=== PATIENT | female | born 1960 | race Caucasian/White ===

== ENCOUNTER 2016-09-22 09:22 | Emergency (ER) | payer MEDICARE, OTHER ==
[2016-09-22] MEDS ORDERED: KETOROLAC 60 MG/2 ML VIAL IVP STA (10:10)
--- NOTE | 2016-09-22 10:13 | ED ---
General Adult HPI - General Chief complaint: Chest Pain Stated complaint: chest pain/lower back pain/left knee pain Time Seen by Provider: 09/22/16 09:25 Source: patient, RN notes reviewed Mode of arrival: ambulatory Limitations: no limitations - History of Present Illness Initial comments: This a 55-year-old female comes emergency Department with past medical history significant for smoking. Patient states she's had chest pain in the anterior aspect of her chest for the last week per patient states his been constant and is worsened by touching it or by taking a deep breath or moving her arms. Patient denies any difficulty breathing or shortness of breath. Patient denies any diaphoresis. Patient denies any nausea. Patient denies any leg swelling or calf tenderness. Patient denies being lightheaded or having any dizzy spells. Patient denies any headache patient denies numbness weakness. Patient denies abdominal pain. Patient denies any injury that she knows of. Patient states lately been difficult to sleep because any time she moves in bed the pain wakes her up - Related Data Home Medications Medication Instructions Recorded Confirmed Escitalopram [Lexapro] 20 mg PO DAILY 08/18/13 09/22/16 Gabapentin [Neurontin] 800 mg PO TID 08/18/13 09/22/16 HYDROcodone/APAP 10-325MG [[place] 1 tab PO Q8H PRN 08/18/13 09/22/16 10-325] Potassium Chloride [Potassium 20 meq PO BID 08/18/13 09/22/16 Chloride ER] Pantoprazole Sodium [Protonix] 40 mg PO BID 12/31/13 09/22/16 Simvastatin [Zocor] 20 mg PO DAILY 12/31/13 09/22/16 Linaclotide [Linzess] 290 mcg PO QAM 05/21/15 09/22/16 Docusate Sodium [Doc-Q-Lace] 100 mg PO BID 11/04/15 09/22/16 Morphine Sulfate ER [Ms Contin 60 mg PO Q12HR 11/04/15 09/22/16 60Mg] Ranitidine HCl [Zantac] 300 mg PO TID 11/04/15 09/22/16 Baclofen [Lioresal] 10 mg PO HS 09/13/16 09/22/16 Ibuprofen [Motrin] 800 mg PO TID PRN 09/13/16 09/22/16 Lidocaine 5% Oint [Xylocaine 5% 1 applic TOPICAL Q4H PRN 09/13/16 09/22/16 Oint] Polyethylene Glycol 3350 [Miralax] 17 gm PO DAILY 09/13/16 09/22/16 predniSONE 20 mg PO DAILY 09/13/16 09/22/16 traZODone HCL 150 mg PO HS 09/22/16 09/22/16 Previous Rx's Medication Instructions Recorded Dicyclomine [Bentyl] 10 mg PO QID PRN #16 capsule 05/09/15 Metoclopramide HCl [Reglan] 10 mg PO TID PRN #15 tablet 06/13/15 Azithromycin [Zithromax Tri-Moncho] 500 mg PO DAILY #3 tab 09/22/16 Allergies Allergy/AdvReac Type Severity Reaction Status Date / Time celecoxib [From Celebrex] Allergy Swelling Verified 09/22/16 13:09 Iodinated Contrast Media - Allergy Dyspnea Verified 09/22/16 13:09 Oral and [Iodinated Contrast Media - IV Dye] Penicillins Allergy Rash/Hives Verified 09/22/16 13:09 rofecoxib [From Vioxx] Allergy Swelling Verified 09/22/16 13:09 sumatriptan [From Imitrex] AdvReac Chest Pain Verified 09/22/16 13:09 sumatriptan succinate AdvReac Chest Pain Verified 09/22/16 13:09 [From Imitrex] tramadol HCl [From Ultram] AdvReac Nausea & Verified 09/22/16 13:09 Vomiting PAPER TAPE Allergy Itching Uncoded 09/22/16 09:23 Review of Systems ROS Statement: Those systems with pertinent positive or pertinent negative responses have been documented in the HPI. ROS Other: All systems not noted in ROS Statement are negative. Past Medical History Past Medical History: COPD, CVA/TIA, GERD/Reflux, Hyperlipidemia, Hypertension, Osteoarthritis (OA), Pneumonia, Pulmonary Embolus (PE), Seizure Disorder, Sleep Apnea/CPAP/BIPAP Additional Past Medical History / Comment(s): Chronic pain syndrome, opiate dependence. ONLY USES CPAP SOMETIMES, hiatal hernia, migraines,bronchitis,sinus problems, endometreosis,stress incont of urine,constipation. LAST SEIZURE WAS A CHILD. PT HAS BEEN HAVING FREQ FALLS. LAST FALL WAS 08/24/16 HAS TO HAVE 12 CHRISTIAN IN LLE WHICH REMOVED 09/10/16. History of Any Multi-Drug Resistant Organisms: MRSA Date of last positivie culture/infection: 2010 MDRO Source:: LEFT LEG Past Surgical History: Adenoidectomy, Back Surgery, Cholecystectomy, Orthopedic Surgery, Tonsillectomy Additional Past Surgical History / Comment(s): Lung surgery-to removed blood clot. BILAT KNEE scopes BILAT TKA AND [place]RIA. RT LEG TUMOR REMOVALed(benign). Back has rika/screws. Lt shoulder replaced. Rt shoulder has pin. PAIN CLINIC PROCEDURES. LAPROSCOPY,GANGLION CYST REMOVED HERMINIA WRISTS. LT CTR, BUNIONECTOMY. EGD/COLONOSCOPY. CORTISONE SHOT 09/11/16 Past Anesthesia/Blood Transfusion Reactions: Motion Sickness, Postoperative Nausea & Vomiting (PONV) Additional Past Anesthesia/Blood Transfusion Reaction / Comment(s): CLAUSTROPHOBIA Past Psychological History: Anxiety, Depression Smoking Status: Current every day smoker - Past Family History Father Family Medical History: Cancer Additional Family Medical History / Comment(s): bowel cancer Mother Additional Family Medical History / Comment(s): crohns Sister(s) Family Medical History: Cancer General Exam - General Exam Comments Initial Comments: GENERAL: Patient is well-developed and well-nourished. Patient is nontoxic and well- hydrated and is in mild distress. ENT: Neck is soft and supple. No significant lymphadenopathy is noted. Oropharynx is clear. Moist mucous membranes. Neck has full range of motion without eliciting any pain. EYES: The sclera were anicteric and conjunctiva were pink and moist. Extraocular movements were intact and pupils were equal round and reactive to light. Eyelids were unremarkable. PULMONARY: Unlabored respirations. Good breath sounds bilaterally. No audible rales rhonchi or wheezing was noted. CARDIOVASCULAR: There is a regular rate and rhythm without any murmurs gallops or rubs. Patient has reproducible chest pain when I touch her sternum or just lateral to the sternum on either side. ABDOMEN: Soft and nontender with normal bowel sounds. No palpable organomegaly was noted. There is no palpable pulsatile mass. SKIN: Skin is clear with no lesions or rashes and otherwise unremarkable. NEUROLOGIC: Patient is alert and oriented x3. Cranial nerves II through XII are grossly intact. Motor and sensory are also intact. Normal speech, volume and content. Symmetrical smile. MUSCULOSKELETAL: Normal extremities with adequate strength and full range of motion. No lower extremity swelling or edema. No calf tenderness. LYMPHATICS: No significant lymphadenopathy is noted PSYCHIATRIC: Normal psychiatric evaluation. Normal interpersonal interactions appears functionally intact in deals appropriately with others. No signs of depression. No signs of anxiety. Limitations: no limitations Course Vital Signs 09/22/16 09/22/16 09/22/16 09:24 11:23 12:02 Temperature 97.4 F L Pulse Rate 81 77 67 Respiratory 20 16 18 Rate Blood Pressure 116/65 120/83 119/71 O2 Sat by Pulse 96 98 95 Oximetry 09/22/16 13:31 Temperature Pulse Rate 73 Respiratory 16 Rate Blood Pressure 122/77 O2 Sat by Pulse 98 Oximetry Medical Decision Making - Medical Decision Making EKG shows normal sinus rhythm at 85 bpm ID interval is 152 QRS is 82 QT interval 360 QTC is 428. Patient's EKG shows no ST segment elevation or depression or T-wave abdomen is noted. Patient received Rocephin while in the emergency department. I went back into reevaluate the patient she stated she felt better and stated she would prefer to try antibiotics home. - Lab Data Result diagrams: 09/22/16 09:45 09/22/16 09:45 Lab Results 09/22/16 09/22/16 09/22/16 Range/Units 09:45 09:45 09:45 WBC 15.6 H (3.8-10.6) k/uL RBC 3.57 L (3.80-5.40) m/uL Hgb 11.6 (11.4-16.0) gm/dL Hct 34.3 (34.0-46.0) % MCV 96.3 (80.0-100.0) fL MCH 32.5 (25.0-35.0) pg MCHC 33.7 (31.0-37.0) g/dL RDW 13.0 (11.5-15.5) % Plt Count 267 (150-450) k/uL Neutrophils % 77 % Lymphocytes % 16 % Monocytes % 5 % Eosinophils % 1 % Basophils % 0 % Neutrophils # 12.0 H (1.3-7.7) k/uL Lymphocytes # 2.5 (1.0-4.8) k/uL Monocytes # 0.7 (0-1.0) k/uL Eosinophils # 0.1 (0-0.7) k/uL Basophils # 0.1 (0-0.2) k/uL PT (9.0-12.0) sec INR (<1.1) APTT (22.0-30.0) sec D-Dimer (<0.60) mg/L FEU Sodium 138 (137-145) mmol/L Potassium 3.8 (3.5-5.1) mmol/L Chloride 101 (98-107) mmol/L Carbon Dioxide 31 H (22-30) mmol/L Anion Gap 6 mmol/L BUN 18 H (7-17) mg/dL Creatinine 0.47 L (0.52-1.04) mg/dL Est GFR (MDRD) Af Amer >60 (>60 ml/min/1.73 sqM) Est GFR (MDRD) Non-Af >60 (>60 ml/min/1.73 sqM) Glucose 88 (74-99) mg/dL Calcium 9.0 (8.4-10.2) mg/dL Magnesium 2.0 (1.6-2.3) mg/dL Total Bilirubin 0.4 (0.2-1.3) mg/dL AST 11 L (14-36) U/L ALT 16 (9-52) U/L Alkaline Phosphatase 84 (38-126) U/L Total Creatine Kinase 30 (30-135) U/L CK-MB (CK-2) 1.1 (0.0-2.4) ng/mL CK-MB (CK-2) Rel Index 3.7 Troponin I <0.012 (0.000-0.034) ng/mL NT-Pro-B Natriuret Pep pg/mL Total Protein 5.7 L (6.3-8.2) g/dL Albumin 3.3 L (3.5-5.0) g/dL 09/22/16 09/22/16 Range/Units 09:45 09:45 WBC (3.8-10.6) k/uL RBC (3.80-5.40) m/uL Hgb (11.4-16.0) gm/dL Hct (34.0-46.0) % MCV (80.0-100.0) fL MCH (25.0-35.0) pg MCHC (31.0-37.0) g/dL RDW (11.5-15.5) % Plt Count (150-450) k/uL Neutrophils % % Lymphocytes % % Monocytes % % Eosinophils % % Basophils % % Neutrophils # (1.3-7.7) k/uL Lymphocytes # (1.0-4.8) k/uL Monocytes # (0-1.0) k/uL Eosinophils # (0-0.7) k/uL Basophils # (0-0.2) k/uL PT 9.5 (9.0-12.0) sec INR 0.9 (<1.1) APTT 26.5 (22.0-30.0) sec D-Dimer 0.94 H (<0.60) mg/L FEU Sodium (137-145) mmol/L Potassium (3.5-5.1) mmol/L Chloride (98-107) mmol/L Carbon Dioxide (22-30) mmol/L Anion Gap mmol/L BUN (7-17) mg/dL Creatinine (0.52-1.04) mg/dL Est GFR (MDRD) Af Amer (>60 ml/min/1.73 sqM) Est GFR (MDRD) Non-Af (>60 ml/min/1.73 sqM) Glucose (74-99) mg/dL Calcium (8.4-10.2) mg/dL Magnesium (1.6-2.3) mg/dL Total Bilirubin (0.2-1.3) mg/dL AST (14-36) U/L ALT (9-52) U/L Alkaline Phosphatase (38-126) U/L Total Creatine Kinase (30-135) U/L CK-MB (CK-2) (0.0-2.4) ng/mL CK-MB (CK-2) Rel Index Troponin I (0.000-0.034) ng/mL NT-Pro-B Natriuret Pep 138 pg/mL Total Protein (6.3-8.2) g/dL Albumin (3.5-5.0) g/dL Disposition Clinical Impression: Pneumonia, Pleurisy Disposition: HOME SELF-CARE Condition: Good Instructions: Pneumonia (ED) Prescriptions: Azithromycin [Zithromax Tri-Moncho] 500 mg PO DAILY #3 tab Referrals: Alon Esteves MD [Primary Care Provider] - 1-2 days Time of Disposition: 13:43
[2016-09-22 10:24] LABS: Basophils # (A) 0.1 k/uL (0-0.2); Basophils % (A) 0 %; CH 32.6; Eosinophils # (A) 0.1 k/uL (0-0.7); Eosinophils % (A) 1 %; HCT 34.3 % (34.0-46.0); HDW 2.19; HGB 11.6 gm/dL (11.4-16.0); Luc # (Auto) 0.18; Luc % (Auto) 1; Lymphocytes # (A) 2.5 k/uL (1.0-4.8); Lymphocytes % (A) 16 %; MCH 32.5 pg (25.0-35.0); MCHC 33.7 g/dL (31.0-37.0); MCV 96.3 fL (80.0-100.0); Mean Platelet Volume 6.8; Monocytes # (A) 0.7 k/uL (0-1.0); Monocytes % (A) 5 %; Neutrophils % (A) 77 %; RBC 3.57 m/uL (3.80-5.40); WBC 15.6 k/uL (3.8-10.6); WBC (Perox) 15.81
--- NOTE | 2016-09-22 10:27 | XR ---
EXAMINATION TYPE: XR chest 2V DATE OF EXAM: 09/22/2016 COMPARISON: 09/30/2015 INDICATION: Chest pain TECHNIQUE: Frontal and lateral views of the chest are obtained. FINDINGS: The heart size is normal. The pulmonary vasculature is normal. The lungs are clear. Left shoulder prosthesis is present. There is a compression deformity within the mid thoracic spine. Findings aggressive from 09/30/2015. No posterior wall displacement is evident. IMPRESSION: 1. No suspicious acute infiltrates. 2. Progressive compression deformity midthoracic spine 2016
[2016-09-22 10:33] LABS: ALT 16 U/L (9-52); AST 11 U/L (14-36); Alkaline Phosphatase 84 U/L (38-126); Anion Gap 6 mmol/L; Blood Urea Nitrogen 18 mg/dL (7-17); Carbon Dioxide 31 mmol/L (22-30); Chloride 101 mmol/L (98-107); Glucose 88 mg/dL (74-99); Non-African American GFR(MDRD) >60 (>60 ml/min/1.73 sqM); Potassium 3.8 mmol/L (3.5-5.1); Sodium 138 mmol/L (137-145); Total Bilirubin 0.4 mg/dL (0.2-1.3); Total Protein 5.7 g/dL (6.3-8.2)
[2016-09-22 10:40] LABS: INR 0.9 (<1.1); Partial Thromboplastin Time 26.5 sec (22.0-30.0); Prothrombin Time 9.5 sec (9.0-12.0)
[2016-09-22 10:47] LABS: Creatine Kinase 30 U/L (30-135)
[2016-09-22 11:00] LABS: Creatine Kinase MB 1.1 ng/mL (0.0-2.4); Troponin I <0.012 ng/mL (0.000-0.034)
[2016-09-22] MEDS ORDERED: SODIUM CHLORIDE 0.9% 500 ML IV ONE (11:47)
[2016-09-22] MEDS ORDERED: FAMOTIDINE 20 MG/2 ML VIAL IV STA (11:48)
[2016-09-22] MEDS ORDERED: diphenhydrAMINE 50 MG/ML 1 ML VIAL IVP STA (11:48)
[2016-09-22] MEDS ORDERED: RX INFO: IV CONTRAST WAS GIVEN 1 EACH MISC MISCELLANE PRN (11:48)
[2016-09-22] MEDS ORDERED: methylPREDNISolone SOD SUCCI 125 MG/2 ML VIAL IV STA (11:48)
[2016-09-22 13:33] VITALS: BP 122/77
--- NOTE | 2016-09-22 13:38 | CT ---
CT CHEST FOR PULMONARY EMBOLISM. EXAMINATION TYPE: CT chest angio for PE DATE OF EXAM: 09/22/2016 INDICATION: Chest pain, Possible PE CT DLP: 178.40 mGycm, Automated exposure control for dose reduction was used. CONTRAST: Patient injected with 100 ml mL of Omnipaque 350. COMPARISON: NONE TECHNIQUE: CT of the chest is performed on a spiral scan at 2 mm thick sections. Study is performed with intravenous contrast timed for evaluation for pulmonary embolism. This will limit additional po rtions of the evaluation. 3-D MIP images reconstructed by the technologist are reviewed on the compu ter in the coronal and sagittal planes. FINDINGS: No persistent filling defects are evident to suggest an acute pulmonary embolism. No mediastinal or hilar adenopathy enlarged by CT criteria is evident. The ascending aorta diameter at the level of the main pulmonary artery is 3.5 cm. The main pulmonary artery diameter at the bifur cation is 3.1 cm. There is some nonspecific scattered areas of pneumonitis groundglass opacities could be related to so me minimal pulmonary edema Limited CT section through the upper abdomen are unremarkable. There is a compression deformity at T8. IMPRESSIONS: 1. No acute pulmonary embolism. 2. Minimal pneumonitis. Correlate for mild pulmonary edema or early infiltrates
[2016-09-22 14:40] VITALS: PULSE 71; RESP 14; TEMP 98.4
== END 2016-09-22 14:25 | disposition home or self-care (01) ==
LOC: EC 09:22
DX: J18.9 Pneumonia, unspecified organism (principal); E78.5 Hyperlipidemia, unspecified; I10 Essential (primary) hypertension; G40.909 Epilepsy, unspecified, not intractable, without status epilepticus; F41.9 Anxiety disorder, unspecified; F32.9 Major depressive disorder, single episode, unspecified; K21.9 Gastro-esophageal reflux disease without esophagitis; G89.4 Chronic pain syndrome; M19.90 Unspecified osteoarthritis, unspecified site; Z86.73 Personal history of transient ischemic attack (TIA), and cerebral infarction without residual deficits; Z86.711 Personal history of pulmonary embolism; Z86.14 Personal history of Methicillin resistant Staphylococcus aureus infection; Z79.891 Long term (current) use of opiate analgesic; Z79.899 Other long term (current) drug therapy; Z88.0 Allergy status to penicillin; Z88.6 Allergy status to analgesic agent; Z88.8 Allergy status to other drugs, medicaments and biological substances; Z91.041 Radiographic dye allergy status; Z91.048 Other nonmedicinal substance allergy status
CPT/HCPCS: 36415; 85379; 83880; 80053; 82550; 82553; 83735; 84484; 85025; 85610; 85730; 71020; 71275; 99285; 96365; 96375 ×4; 96361; J1200; J2930; Q9967; J0696; J1885

== ENCOUNTER 2016-11-19 10:47 | Emergency (ER) | payer MEDICARE, OTHER ==
[2016-11-19 10:54] VITALS: RESP 18
[2016-11-19] MEDS ORDERED: HYDROmorphone 1 MG/ML 1 ML SYRINGE IVP STA (11:27)
[2016-11-19] MEDS ORDERED: SODIUM CHLORIDE 0.9% 1,000 ML IV STA (11:27)
--- NOTE | 2016-11-19 12:07 | ED ---
General Adult HPI - General Chief complaint: Fall Stated complaint: Fall Time Seen by Provider: 11/19/16 10:49 Source: patient, EMS, RN notes reviewed, old records reviewed Mode of arrival: EMS Limitations: no limitations - History of Present Illness Initial comments: This is a 56-year-old female in the ER for evaluation pretences this because reevaluation regarding fall. A stat a fall, patient has history of recent multiple falls secondary to weakness. Using her walker was able to catch her balance slipped and fell on her right leg and left shoulder. Complaining of left shoulder pain and right leg pain. Abrasion anterior right thigh. Patient denies headache chest pain or shortness of breath. Multiple falls recently related strength deficits. - Related Data Home Medications Medication Instructions Recorded Confirmed Escitalopram [Lexapro] 20 mg PO DAILY 08/18/13 11/19/16 Gabapentin [Neurontin] 800 mg PO TID 08/18/13 11/19/16 HYDROcodone/APAP 10-325MG [[place] 1 tab PO Q8H PRN 08/18/13 11/19/16 10-325] Potassium Chloride [Potassium 20 meq PO BID 08/18/13 11/19/16 Chloride ER] Pantoprazole Sodium [Protonix] 40 mg PO BID 12/31/13 11/19/16 Simvastatin [Zocor] 20 mg PO DAILY 12/31/13 11/19/16 Linaclotide [Linzess] 290 mcg PO QAM 05/21/15 11/19/16 Docusate Sodium [Doc-Q-Lace] 100 mg PO BID 11/04/15 11/19/16 Morphine Sulfate ER [Ms Contin 60 mg PO Q12HR 11/04/15 11/19/16 60Mg] Ranitidine HCl [Zantac] 300 mg PO TID 11/04/15 11/19/16 Ibuprofen [Motrin] 800 mg PO TID 09/13/16 11/19/16 Lidocaine 5% Oint [Xylocaine 5% 1 applic TOPICAL Q4H PRN 09/13/16 11/19/16 Oint] traZODone HCL 150 mg PO HS 09/22/16 11/19/16 Previous Rx's Medication Instructions Recorded Dicyclomine [Bentyl] 10 mg PO QID PRN #16 capsule 05/09/15 Metoclopramide HCl [Reglan] 10 mg PO TID PRN #15 tablet 06/13/15 Allergies Allergy/AdvReac Type Severity Reaction Status Date / Time celecoxib [From Celebrex] Allergy Swelling Verified 11/19/16 11:15 Iodinated Contrast- Oral and Allergy Dyspnea Verified 11/19/16 11:15 IV Dye [Iodinated Contrast Media - IV Dye] Penicillins Allergy Rash/Hives Verified 11/19/16 11:15 rofecoxib [From Vioxx] Allergy Swelling Verified 11/19/16 11:15 sumatriptan [From Imitrex] AdvReac Chest Pain Verified 11/19/16 11:15 sumatriptan succinate AdvReac Chest Pain Verified 11/19/16 11:15 [From Imitrex] tramadol HCl [From Ultram] AdvReac Nausea & Verified 11/19/16 11:15 Vomiting PAPER TAPE Allergy Itching Uncoded 11/19/16 10:55 Review of Systems ROS Statement: Those systems with pertinent positive or pertinent negative responses have been documented in the HPI. ROS Other: All systems not noted in ROS Statement are negative. Past Medical History Past Medical History: COPD, CVA/TIA, GERD/Reflux, Hyperlipidemia, Hypertension, Osteoarthritis (OA), Pneumonia, Pulmonary Embolus (PE), Seizure Disorder, Sleep Apnea/CPAP/BIPAP Additional Past Medical History / Comment(s): Chronic pain syndrome, opiate dependence. ONLY USES CPAP SOMETIMES, hiatal hernia, migraines,bronchitis,sinus problems, endometreosis,stress incont of urine,constipation. LAST SEIZURE WAS A CHILD. PT HAS BEEN HAVING FREQ FALLS. LAST FALL WAS 08/24/16 HAS TO HAVE 12 CHRISTIAN IN LLE WHICH REMOVED 09/10/16. History of Any Multi-Drug Resistant Organisms: MRSA Date of last positivie culture/infection: 2010 MDRO Source:: LEFT LEG Past Surgical History: Adenoidectomy, Back Surgery, Cholecystectomy, Orthopedic Surgery, Tonsillectomy Additional Past Surgical History / Comment(s): Lung surgery-to removed blood clot. BILAT KNEE scopes BILAT TKA AND ADRIA. RT LEG TUMOR REMOVALed(benign). Back has rika/screws. Lt shoulder replaced. Rt shoulder has pin. PAIN CLINIC PROCEDURES. LAPROSCOPY,GANGLION CYST REMOVED HERMINIA WRISTS. LT CTR, BUNIONECTOMY. EGD/COLONOSCOPY. CORTISONE SHOT 09/11/16 Past Anesthesia/Blood Transfusion Reactions: Motion Sickness, Postoperative Nausea & Vomiting (PONV) Additional Past Anesthesia/Blood Transfusion Reaction / Comment(s): CLAUSTROPHOBIA Past Psychological History: Anxiety, Depression Smoking Status: Current every day smoker Past Alcohol Use History: None Reported Past Drug Use History: None Reported - Past Family History Father Family Medical History: Cancer Additional Family Medical History / Comment(s): bowel cancer Mother Additional Family Medical History / Comment(s): crohns Sister(s) Family Medical History: Cancer General Exam Limitations: no limitations General appearance: alert, in no apparent distress Head exam: Present: atraumatic, normocephalic, normal inspection Eye exam: Present: normal appearance, PERRL, EOMI. Absent: scleral icterus, conjunctival injection, periorbital swelling ENT exam: Present: normal exam, mucous membranes moist Neck exam: Present: normal inspection. Absent: tenderness, meningismus, lymphadenopathy Respiratory exam: Present: normal lung sounds bilaterally. Absent: respiratory distress, wheezes, rales, rhonchi, stridor Cardiovascular Exam: Present: regular rate, normal rhythm, normal heart sounds. Absent: systolic murmur, diastolic murmur, rubs, gallop, clicks GI/Abdominal exam: Present: soft, normal bowel sounds. Absent: distended, tenderness, guarding, rebound, rigid Extremities exam: Present: normal inspection, full ROM, normal capillary refill. Absent: tenderness, pedal edema, joint swelling, calf tenderness Back exam: Present: normal inspection Neurological exam: Present: alert, oriented X3, CN II-XII intact Psychiatric exam: Present: normal affect, normal mood Skin exam: Present: warm, dry, intact, normal color. Absent: rash Course Vital Signs 11/19/16 10:50 Temperature 98.7 F Pulse Rate 100 Respiratory 18 Rate Blood Pressure 109/63 O2 Sat by Pulse 95 Oximetry - Reevaluation(s) Reevaluation #1: 11/19/16 13:30 Patient was able to ambulate here in the emergency room to the restroom with assist Medical Decision Making - Medical Decision Making 36-year-old ER for evaluation. History of multiple falls no traumatic injury. Patient will be discharged home - Lab Data Result diagrams: 11/19/16 12:15 11/19/16 12:15 Lab Results 11/19/16 11/19/16 11/19/16 Range/Units 12:15 12:15 12:15 WBC 10.8 H (3.8-10.6) k/uL RBC 3.52 L (3.80-5.40) m/uL Hgb 11.7 (11.4-16.0) gm/dL Hct 34.8 (34.0-46.0) % MCV 98.7 (80.0-100.0) fL MCH 33.3 (25.0-35.0) pg MCHC 33.7 (31.0-37.0) g/dL RDW 13.5 (11.5-15.5) % Plt Count 286 (150-450) k/uL Neutrophils % 73 % Lymphocytes % 20 % Monocytes % 4 % Eosinophils % 1 % Basophils % 1 % Neutrophils # 7.9 H (1.3-7.7) k/uL Lymphocytes # 2.1 (1.0-4.8) k/uL Monocytes # 0.4 (0-1.0) k/uL Eosinophils # 0.1 (0-0.7) k/uL Basophils # 0.1 (0-0.2) k/uL Sodium 136 L (137-145) mmol/L Potassium 4.6 (3.5-5.1) mmol/L Chloride 102 (98-107) mmol/L Carbon Dioxide 29 (22-30) mmol/L Anion Gap 5 mmol/L BUN 14 (7-17) mg/dL Creatinine 0.60 (0.52-1.04) mg/dL Est GFR (MDRD) Af Amer >60 (>60 ml/min/1.73 sqM) Est GFR (MDRD) Non-Af >60 (>60 ml/min/1.73 sqM) Glucose 95 (74-99) mg/dL Calcium 9.2 (8.4-10.2) mg/dL Phosphorus 4.0 (2.5-4.5) mg/dL Magnesium 2.1 (1.6-2.3) mg/dL Total Bilirubin 0.3 (0.2-1.3) mg/dL AST 15 (14-36) U/L ALT 31 (9-52) U/L Alkaline Phosphatase 105 (38-126) U/L Total Creatine Kinase 42 (30-135) U/L Total Protein 5.9 L (6.3-8.2) g/dL Albumin 3.6 (3.5-5.0) g/dL Urine Color Urine Appearance (Clear) Urine pH (5.0-8.0) Ur Specific [place] (1.001-1.035) Urine Protein (Negative) Urine Glucose (UA) (Negative) Urine Ketones (Negative) Urine Blood (Negative) Urine Nitrite (Negative) Urine Bilirubin (Negative) Urine Urobilinogen (<2.0) mg/dL Ur Leukocyte Esterase (Negative) Urine WBC (0-5) /hpf Ur Squamous Epith Cells (0-4) /hpf Urine Bacteria (None) /hpf Urine Mucus (None) /hpf 11/19/16 Range/Units 12:15 WBC (3.8-10.6) k/uL RBC (3.80-5.40) m/uL Hgb (11.4-16.0) gm/dL Hct (34.0-46.0) % MCV (80.0-100.0) fL MCH (25.0-35.0) pg MCHC (31.0-37.0) g/dL RDW (11.5-15.5) % Plt Count (150-450) k/uL Neutrophils % % Lymphocytes % % Monocytes % % Eosinophils % % Basophils % % Neutrophils # (1.3-7.7) k/uL Lymphocytes # (1.0-4.8) k/uL Monocytes # (0-1.0) k/uL Eosinophils # (0-0.7) k/uL Basophils # (0-0.2) k/uL Sodium (137-145) mmol/L Potassium (3.5-5.1) mmol/L Chloride (98-107) mmol/L Carbon Dioxide (22-30) mmol/L Anion Gap mmol/L BUN (7-17) mg/dL Creatinine (0.52-1.04) mg/dL Est GFR (MDRD) Af Amer (>60 ml/min/1.73 sqM) Est GFR (MDRD) Non-Af (>60 ml/min/1.73 sqM) Glucose (74-99) mg/dL Calcium (8.4-10.2) mg/dL Phosphorus (2.5-4.5) mg/dL Magnesium (1.6-2.3) mg/dL Total Bilirubin (0.2-1.3) mg/dL AST (14-36) U/L ALT (9-52) U/L Alkaline Phosphatase (38-126) U/L Total Creatine Kinase (30-135) U/L Total Protein (6.3-8.2) g/dL Albumin (3.5-5.0) g/dL Urine Color Yellow Urine Appearance Cloudy H (Clear) Urine pH 5.5 (5.0-8.0) Ur Specific [place] 1.020 (1.001-1.035) Urine Protein Trace H (Negative) Urine Glucose (UA) Negative (Negative) Urine Ketones Negative (Negative) Urine Blood Negative (Negative) Urine Nitrite Negative (Negative) Urine Bilirubin Negative (Negative) Urine Urobilinogen 2.0 (<2.0) mg/dL Ur Leukocyte Esterase Small H (Negative) Urine WBC 5 (0-5) /hpf Ur Squamous Epith Cells 4 (0-4) /hpf Urine Bacteria Rare H (None) /hpf Urine Mucus Rare H (None) /hpf - Radiology Data Radiology results: report reviewed (CT brain C-spine, multiple imaging and x- rays of body are negative for acute traumatic injury), image reviewed Disposition Clinical Impression: Fall Disposition: HOME SELF-CARE Condition: Good Instructions: Fall Prevention for Older Adults (ED) Referrals: Alon Esteves MD [Primary Care Provider] - 1-2 days
[2016-11-19 12:42] LABS: Basophils # (A) 0.1 k/uL (0-0.2); Basophils % (A) 1 %; CH 32.4; Eosinophils # (A) 0.1 k/uL (0-0.7); Eosinophils % (A) 1 %; HCT 34.8 % (34.0-46.0); HDW 2.22; HGB 11.7 gm/dL (11.4-16.0); Luc # (Auto) 0.17; Luc % (Auto) 2; Lymphocytes # (A) 2.1 k/uL (1.0-4.8); Lymphocytes % (A) 20 %; MCH 33.3 pg (25.0-35.0); MCHC 33.7 g/dL (31.0-37.0); MCV 98.7 fL (80.0-100.0); Mean Platelet Volume 6.6; Monocytes # (A) 0.4 k/uL (0-1.0); Monocytes % (A) 4 %; Neutrophils # (A) 7.9 k/uL (1.3-7.7); Neutrophils % (A) 73 %; RBC 3.52 m/uL (3.80-5.40); RDW 13.5 % (11.5-15.5); WBC 10.8 k/uL (3.8-10.6); WBC (Perox) 11.35
[2016-11-19 12:44] LABS: Appearance,Urine Cloudy (Clear); Bacteria,Urine Rare /hpf; Bilirubin,Urine Negative (Negative); Glucose,Urine (UA) Negative (Negative); Ketones,Urine Negative (Negative); Leukocyte Esterase,Urine Small (Negative); Mucus,Urine Rare /hpf; Nitrite,Urine Negative (Negative); PH, Urine 5.5 (5.0-8.0); Particle Count 6356; Protein,Urine Trace (Negative); Squamous Epithelial Cell,Urine 4 /hpf (0-4); UA Billing (MACRO vs. MICRO) MICRO; WBC,Urine 5 /hpf (0-5)
[2016-11-19 12:55] LABS: ALT 31 U/L (9-52); AST 15 U/L (14-36); Alkaline Phosphatase 105 U/L (38-126); Anion Gap 5 mmol/L; Blood Urea Nitrogen 14 mg/dL (7-17); Calcium 9.2 mg/dL (8.4-10.2); Carbon Dioxide 29 mmol/L (22-30); Chloride 102 mmol/L (98-107); Glucose 95 mg/dL (74-99); Magnesium 2.1 mg/dL (1.6-2.3); Non-African American GFR(MDRD) >60 (>60 ml/min/1.73 sqM); Potassium 4.6 mmol/L (3.5-5.1); Sodium 136 mmol/L (137-145); Total Bilirubin 0.3 mg/dL (0.2-1.3); Total Protein 5.9 g/dL (6.3-8.2)
--- NOTE | 2016-11-19 13:00 | CT ---
EXAMINATION TYPE: CT brain cspine wo con DATE OF EXAM: 11/19/2016 COMPARISON: 01/06/2014 HISTORY: Fall CT DLP: Brain 1175.25, Cervical 614.55 mGycm. Automated Exposure Control for Dose Reduction was Utili zed. TECHNIQUE: CT scan of the head and cervical spine are performed without contrast. FINDINGS: There is no acute intracranial hemorrhage, mass effect, or midline shift identified. Inci dental note is made of a cavum septum pellucida. The ventricles and sulci are within normal limits in size. The globes are intact and the visualized sinuses are clear. Old lacunar injuries are seen of the basal ganglia versus prominent /Spaces, unchanged from the prior exam of 01/06/2014. Cervical spine is visualized in its entirety from C1 through upper thoracic levels and demonstrates s atisfactory alignment without evidence of acute fracture or dislocation despite slight motion artifac t. Prevertebral soft tissue appears within normal limits. The C1-C2 articulation is unremarkable. Paraseptal emphysematous changes, mild in degree and pleural parenchymal scarring are seen in the vis ualized lung apices. There is an exaggerated thoracic kyphosis and cervical lordosis. Motion artifact is seen through C1. IMPRESSION: 1. There is no acute fracture or dislocation evident in the cervical spine. 2. No acute intracranial hemorrhage, mass effect, or midline shift is seen. 3. Old lacunar injuries of the veins also ganglia versus prominent perivascular spaces, unchanged fro m the prior exam of 01/06/2014.
[2016-11-19 13:09] LABS: Creatine Kinase 42 U/L (30-135)
--- NOTE | 2016-11-19 13:14 | XR ---
EXAMINATION TYPE: XR elbow complete LT DATE OF EXAM: 11/19/2016 COMPARISON: NONE HISTORY: 01/06/2014 TECHNIQUE: Three-view left elbow FINDINGS: Anterior fat pad is normal. No elevation of posterior fat pad is evident. The radius aligns normally with the humerus. Examination appears stable from 01/06/2014 IMPRESSION: 1. No acute osseous abnormality. 2. Follow-up exam can be performed 7-10 days from acute trauma for continued pain.
--- NOTE | 2016-11-19 13:17 | XR ---
EXAMINATION TYPE: XR pelvis AP view DATE OF EXAM: 11/19/2016 CLINICAL HISTORY: Fall and pain TECHNIQUE: A single AP view of the pelvis is obtained. COMPARISON: CT dated 06/07/2015 FINDINGS: Bilateral hip arthroplasties are noted with heterotopic ossification surrounding the right greater trochanter. Postsurgical changes are seen of the thoracolumbar spine with particular screws, fixation rods, and intervertebral disc spacers. Large amount of stool seen within the rectum. Old fracture deformities are seen of the left pubic bone and inferior pubic ramus. These are present on the prior exam of 06/07/2015. Additional right inferior pubic ramus fracture appears and right supe rior pubic ramus fracture appear to have surrounding callus and most likely represent old healed frac tures. IMPRESSION: Callus formation around healed fractures of the left superior and inferior pubic ramus and appearance of callus around the right superior and inferior pubic ramus fractures, also likely old. Bilateral f emoral arteries arthroplasties demonstrate no evidence of dislocation or hardware fracture. Degenerat renita and postsurgical changes of the lumbosacral spine are seen.
--- NOTE | 2016-11-19 13:17 | XR ---
2 view right hip INDICATION: Fall, pain. FINDINGS: 2 view right hip. Femoral prosthesis and acetabular component are present. No acute fractures are alonzo dent. Old fracture of the symphysis pubis is present. IMPRESSIONS: 1. No acute fractures right hip 2. Right hip prosthesis remains in position.
[2016-11-19 13:21] LABS: Creatine Kinase MB 1.3 ng/mL (0.0-2.4); Troponin I <0.012 ng/mL (0.000-0.034)
--- NOTE | 2016-11-19 13:21 | XR ---
EXAMINATION TYPE: XR tibia fibula RT DATE OF EXAM: 11/19/2016 COMPARISON: NONE HISTORY: Fall, pain TECHNIQUE: 2 view right tibia and fibula FINDINGS: Right knee prosthesis is present. No acute fractures are evident. Soft tissues are unremark able. IMPRESSION: 1. Normal 2 view right tibia and fibula
--- NOTE | 2016-11-19 13:23 | XR ---
EXAMINATION TYPE: XR ankle complete RT DATE OF EXAM: 11/19/2016 COMPARISON: NONE HISTORY: Fall, pain TECHNIQUE: 3 views right ankle FINDINGS: Ankle mortise is intact. Soft tissues are normal. No acute fractures or dislocations are ev ident. IMPRESSION: 1. Normal three-view right ankle. 2. Follow-up exams can be performed 7-10 days from acute trauma for continued pain.
--- NOTE | 2016-11-19 13:23 | XR ---
EXAMINATION TYPE: XR chest 1V DATE OF EXAM: 11/19/2016 COMPARISON: NONE HISTORY: Pain from fall today right arm and leg pain. Chest pain. TECHNIQUE: Single frontal view of the chest is obtained. FINDINGS: There is no focal air space opacity, pleural effusion, or pneumothorax seen. The cardiac silhouette size is within normal limits. The osseous structures are intact. 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 Lungs are hyperinflated with flattening of the diaphragms. Right basila r atelectasis is present. Surgical anchor is noted from prior right rotator cuff repair. Cardiomedias tinal silhouette is within normal limits. IMPRESSION: 1. Right basilar atelectasis. 2. Radiographic sequela of COPD.
--- NOTE | 2016-11-19 13:25 | XR ---
EXAMINATION TYPE: XR shoulder complete LT DATE OF EXAM: 11/19/2016 CLINICAL HISTORY: Fall and left shoulder pain TECHNIQUE: Three views of the left shoulder are obtained. COMPARISON: None. FINDINGS: Reverse total arthroplasty is seen of the left glenohumeral joint with no evidence of hardw are fracture or dislocation. Global lucency of the glenoid is seen although no focal areas are seen a djacent to the cortical screws to indicate loosening. Appearance is overall unchanged from the chest radiograph of 09/30/2015.No displaced rib fractures seen within the visualized ribs. Visualized left leslie ng is well aerated. IMPRESSION: Reverse total arthroplasty with no evidence of hardware fracture, dislocation, or displac ed osseous fracture.
[2016-11-19] MEDS ORDERED: TOPICAL SKIN ADHESIVE 1 EACH AMP TOPICAL STA (13:41)
[2016-11-19 14:01] VITALS: BP 120/65; PULSE 69; TEMP 98.9
== END 2016-11-19 14:02 | disposition home or self-care (01) ==
LOC: EC 10:47
DX: S70.311A Abrasion, right thigh, initial encounter (principal); R29.6 Repeated falls; M25.512 Pain in left shoulder; M79.604 Pain in right leg; E78.5 Hyperlipidemia, unspecified; I10 Essential (primary) hypertension; K21.9 Gastro-esophageal reflux disease without esophagitis; G40.909 Epilepsy, unspecified, not intractable, without status epilepticus; F11.29 Opioid dependence with unspecified opioid-induced disorder; M19.90 Unspecified osteoarthritis, unspecified site; F32.9 Major depressive disorder, single episode, unspecified; F41.9 Anxiety disorder, unspecified; F17.200 Nicotine dependence, unspecified, uncomplicated; Z79.1 Long term (current) use of non-steroidal anti-inflammatories (NSAID); Z79.891 Long term (current) use of opiate analgesic; Z79.899 Other long term (current) drug therapy; Z88.0 Allergy status to penicillin; Z88.5 Allergy status to narcotic agent; Z88.6 Allergy status to analgesic agent; Z88.8 Allergy status to other drugs, medicaments and biological substances; Z91.041 Radiographic dye allergy status; Z91.09 Other allergy status, other than to drugs and biological substances; Z96.643 Presence of artificial hip joint, bilateral; Z96.653 Presence of artificial knee joint, bilateral; W10.9XXA Fall (on) (from) unspecified stairs and steps, initial encounter
CPT/HCPCS: 99285; 96374; 36415; 80053; 82550; 82553; 83735; 84100; 84443; 84484; 85025; 81001; 87086; 71010; 72170; 73030; 73502; 73080; 73590; 73610; 72125; 70450; J1170

== ENCOUNTER 2016-11-24 16:23 | Emergency (ER) | payer MEDICARE, OTHER ==
[2016-11-24 16:35] VITALS: RESP 18; TEMP 97.3
--- NOTE | 2016-11-24 16:58 | ED ---
General Adult HPI - General Chief complaint: Fall Stated complaint: hip pain Time Seen by Provider: 11/24/16 16:39 Source: patient, RN notes reviewed Mode of arrival: ambulatory Limitations: physical limitation - History of Present Illness Initial comments: Patient is a 56-year-old female who presents emergency room today with multiple complaints. She does admit to a fall that occurred days ago. Patient states that she tripped when she was going down some steps. She states she was seen here in the emergency room. She states she still expresses pain to the left shoulder and left hip area. States she is going to see her orthopedic doctor about her left shoulder. She states she was unsure if she had a x-ray of the left hip. Patient states that is worse with ambulation. She admits that she also has a laceration to the right lower extremity that was glued here in emergency room. States that she has followed the family doctor. She states she believe that the family doctor toward keep it covered. She states it has become more red and painful. She denies any other complaints or associated symptoms at this time. Patient denies any recent fever, chills, shortness of breath, chest pain, back pain, abdominal pain, nausea or vomiting, dysuria or hematuria, constipation or diarrhea, headaches or visual changes, or any other complaints. - Related Data Home Medications Medication Instructions Recorded Confirmed Escitalopram [Lexapro] 20 mg PO DAILY 08/18/13 11/24/16 Gabapentin [Neurontin] 800 mg PO TID 08/18/13 11/24/16 HYDROcodone/APAP 10-325MG [[place] 1 tab PO Q8H PRN 08/18/13 11/24/16 10-325] Potassium Chloride [Potassium 20 meq PO BID 08/18/13 11/24/16 Chloride ER] Pantoprazole Sodium [Protonix] 40 mg PO BID 12/31/13 11/24/16 Simvastatin [Zocor] 20 mg PO DAILY 12/31/13 11/24/16 Linaclotide [Linzess] 290 mcg PO QAM 05/21/15 11/24/16 Docusate Sodium [Doc-Q-Lace] 100 mg PO BID 11/04/15 11/24/16 Morphine Sulfate ER [Ms Contin 60 mg PO Q12HR 11/04/15 11/24/16 60Mg] Ranitidine HCl [Zantac] 300 mg PO TID 11/04/15 11/24/16 Ibuprofen [Motrin] 800 mg PO TID 09/13/16 11/24/16 Lidocaine 5% Oint [Xylocaine 5% 1 applic TOPICAL Q4H PRN 09/13/16 11/24/16 Oint] traZODone HCL 150 mg PO HS 09/22/16 11/24/16 Previous Rx's Medication Instructions Recorded Dicyclomine [Bentyl] 10 mg PO QID PRN #16 capsule 05/09/15 Metoclopramide HCl [Reglan] 10 mg PO TID PRN #15 tablet 06/13/15 Clindamycin HCl [Cleocin] 300 mg PO Q6HR 10 Days 11/24/16 Allergies Allergy/AdvReac Type Severity Reaction Status Date / Time celecoxib [From Celebrex] Allergy Swelling Verified 11/24/16 16:35 Iodinated Contrast- Oral and Allergy Dyspnea Verified 11/24/16 16:35 IV Dye [Iodinated Contrast Media - IV Dye] Penicillins Allergy Rash/Hives Verified 11/24/16 16:35 rofecoxib [From Vioxx] Allergy Swelling Verified 11/24/16 16:35 sumatriptan [From Imitrex] AdvReac Chest Pain Verified 11/24/16 16:35 sumatriptan succinate AdvReac Chest Pain Verified 11/24/16 16:35 [From Imitrex] tramadol HCl [From Ultram] AdvReac Nausea & Verified 11/24/16 16:35 Vomiting PAPER TAPE Allergy Itching Uncoded 11/24/16 16:35 Review of Systems ROS Statement: Those systems with pertinent positive or pertinent negative responses have been documented in the HPI. ROS Other: All systems not noted in ROS Statement are negative. Past Medical History Past Medical History: COPD, CVA/TIA, GERD/Reflux, Hyperlipidemia, Hypertension, Osteoarthritis (OA), Pneumonia, Pulmonary Embolus (PE), Seizure Disorder, Sleep Apnea/CPAP/BIPAP Additional Past Medical History / Comment(s): Chronic pain syndrome, opiate dependence. ONLY USES CPAP SOMETIMES, hiatal hernia, migraines,bronchitis,sinus problems, endometreosis,stress incont of urine,constipation. LAST SEIZURE WAS A CHILD. PT HAS BEEN HAVING FREQ FALLS. LAST FALL WAS 08/24/16 HAS TO HAVE 12 CHRISTIAN IN LLE WHICH REMOVED 09/10/16. History of Any Multi-Drug Resistant Organisms: MRSA Date of last positivie culture/infection: 2010 MDRO Source:: LEFT LEG Past Surgical History: Adenoidectomy, Back Surgery, Cholecystectomy, Orthopedic Surgery, Tonsillectomy Additional Past Surgical History / Comment(s): Lung surgery-to removed blood clot. BILAT KNEE scopes BILAT TKA AND ADRIA. RT LEG TUMOR REMOVALed(benign). Back has rika/screws. Lt shoulder replaced. Rt shoulder has pin. PAIN CLINIC PROCEDURES. LAPROSCOPY,GANGLION CYST REMOVED HERMINIA WRISTS. LT CTR, BUNIONECTOMY. EGD/COLONOSCOPY. CORTISONE SHOT 09/11/16 Past Anesthesia/Blood Transfusion Reactions: Motion Sickness, Postoperative Nausea & Vomiting (PONV) Additional Past Anesthesia/Blood Transfusion Reaction / Comment(s): CLAUSTROPHOBIA Past Psychological History: Anxiety, Depression Smoking Status: Current every day smoker Past Alcohol Use History: None Reported Past Drug Use History: None Reported - Past Family History Father Family Medical History: Cancer Additional Family Medical History / Comment(s): bowel cancer Mother Additional Family Medical History / Comment(s): crohns Sister(s) Family Medical History: Cancer General Exam - General Exam Comments Initial Comments: General: The patient is awake and alert, in no distress, and does not appear acutely ill. Eye: Pupils are equal, round and reactive to light, extra-ocular movements are intact. No nystagmus. There is normal conjunctiva bilaterally. No signs of icterus. Ears, nose, mouth and throat: There are moist mucous membranes and no oral lesions. Neck: The neck is supple, there is no tenderness or JVD. Cardiovascular: There is a regular rate and rhythm. No murmur, rub or gallop is appreciated. Respiratory: Lungs are clear to auscultation, respirations are non-labored, breath sounds are equal. No wheezes, stridor, rales, or rhonchi. Gastrointestinal: Soft, non-distended, non-tender abdomen without masses or organomegaly noted. There is no rebound or guarding present. No CVA tenderness. Bowel sounds are unremarkable. Musculoskeletal: Normal ROM, no tenderness. Strength 5/5. Sensation intact. Pulses equal bilaterally 2+. Neurological: A&O x 3. CN II-XII intact, There are no obvious motor or sensory deficits. Coordination appears grossly intact. Speech is normal. Skin: patient does have a skin laceration to the distal aspect of the right lower leg. There is some local redness erythema around the wound site. No lymphangitic streaking. Mildly swollen locally. There is some discharge coming from the wound. Mild tenderness on exam. Psychiatric: Cooperative, appropriate mood & affect, normal judgment. Limitations: physical limitation Course Vital Signs 11/24/16 16:31 Temperature 97.3 F L Pulse Rate 90 Respiratory 18 Rate Blood Pressure 127/77 O2 Sat by Pulse 93 L Oximetry Medical Decision Making - Medical Decision Making X-ray negative for any fracture or dislocation. Urinalysis shows no sign of infection. Patient's wound has been cleaned and redressed here. Does show local infection will be started on clindamycin. Advised follow-up with her orthopedic doctor also family doctor advised return if signs or symptoms symptoms of infection increase or worsen. She states understanding and is in agreement. - Lab Data Lab Results 11/24/16 Range/Units 17:15 Urine Color Yellow Urine Appearance Cloudy H (Clear) Urine pH 5.5 (5.0-8.0) Ur Specific [place] 1.021 (1.001-1.035) Urine Protein Trace H (Negative) Urine Glucose (UA) Negative (Negative) Urine Ketones Negative (Negative) Urine Blood Negative (Negative) Urine Nitrite Negative (Negative) Urine Bilirubin Negative (Negative) Urine Urobilinogen 2.0 (<2.0) mg/dL Ur Leukocyte Esterase Negative (Negative) Urine RBC 1 (0-5) /hpf Urine WBC 3 (0-5) /hpf Ur Squamous Epith Cells 4 (0-4) /hpf Urine Mucus Many H (None) /hpf Disposition Clinical Impression: Wound infection, Hip pain Disposition: HOME SELF-CARE Condition: Good Instructions: Acute Wound Care (ED) Additional Instructions: Please use medication as discussed. Please follow-up with family doctor in the next 2 days of symptoms have not improved. Please return to emergency room if the symptoms increase or worsen or for any other concerns. Prescriptions: Clindamycin HCl [Cleocin] 300 mg PO Q6HR 10 Days Referrals: Alon Esteves MD [Primary Care Provider] - 1-2 days Time of Disposition: 18:25
[2016-11-24 17:45] LABS: Appearance,Urine Cloudy (Clear); Bilirubin,Urine Negative (Negative); Glucose,Urine (UA) Negative (Negative); Ketones,Urine Negative (Negative); Leukocyte Esterase,Urine Negative (Negative); Mucus,Urine Many /hpf; Nitrite,Urine Negative (Negative); PH, Urine 5.5 (5.0-8.0); Particle Count 17754; Protein,Urine Trace (Negative); RBC,Urine 1 /hpf (0-5); Specific Gravity,Urine 1.021 (1.001-1.035); Squamous Epithelial Cell,Urine 4 /hpf (0-4); UA Billing (MACRO vs. MICRO) MICRO; WBC,Urine 3 /hpf (0-5)
--- NOTE | 2016-11-24 18:14 | XR ---
EXAMINATION TYPE: XR Hip LT and AP Pelvis DATE OF EXAM: 11/24/2016 COMPARISON: Pelvic x-ray November 19, 2016 HISTORY: Pelvic and left hip pain after fall injury 5 days ago. TECHNIQUE: A single AP view of the pelvis is obtained. Two views of the left hip are obtained. FINDINGS: Osseous structures are demineralized which is noted to lower radiographic sensitivity. The re is no acute fracture/dislocation evident in the pelvis. The sacroiliac joints appear symmetric an d felt within normal limits. There is surgical change in the lower lumbar spine redemonstrated. Metal lic hardware from right hip surgery is again seen with stable position. There is suspected old trauma or healed fractures at level of pubic symphysis. Two views of left hip show no acute fracture or dislocation. Metallic hardware from longstem prosthes is is redemonstrated. AP view does not include entire prosthesis. The overlying soft tissue is unrema rkable. IMPRESSION: There is no acute fracture or dislocation in the pelvis or left hip.
[2016-11-24 18:29] VITALS: BP 114/66; PULSE 83
== END 2016-11-24 18:45 | disposition home or self-care (01) ==
LOC: EC 16:23
DX: M25.552 Pain in left hip (principal); S81.811D Laceration without foreign body, right lower leg, subsequent encounter; F32.9 Major depressive disorder, single episode, unspecified; F41.9 Anxiety disorder, unspecified; K21.9 Gastro-esophageal reflux disease without esophagitis; E78.5 Hyperlipidemia, unspecified; I10 Essential (primary) hypertension; M19.90 Unspecified osteoarthritis, unspecified site; G40.909 Epilepsy, unspecified, not intractable, without status epilepticus; F17.200 Nicotine dependence, unspecified, uncomplicated; Z86.711 Personal history of pulmonary embolism; Z86.73 Personal history of transient ischemic attack (TIA), and cerebral infarction without residual deficits; Z88.0 Allergy status to penicillin; Z88.8 Allergy status to other drugs, medicaments and biological substances; Z91.048 Other nonmedicinal substance allergy status; Z79.1 Long term (current) use of non-steroidal anti-inflammatories (NSAID); Z79.899 Other long term (current) drug therapy; W10.9XXD Fall (on) (from) unspecified stairs and steps, subsequent encounter
CPT/HCPCS: 73502; 81001; 87086; 99283

== ENCOUNTER → 2017-05-22 | Outpatient (CLI) | payer MEDICARE, OTHER ==
--- NOTE | 2017-05-22 13:43 | MM ---
Reason for exam: additional evaluation requested from prior study. Last mammogram was performed 1 year and 6 months ago. History: Patient is postmenopausal and is nulliparous. Physical Findings: Nurse did not find any significant physical abnormalities on exam. MG 3D Diag Mammo W/Cad HERMINIA Bilateral CC and MLO view(s) were taken. Prior study comparison: November 14, 2015, bilateral MG 3d diag mammo w/cad HERMINIA. October 29, 2014, bilateral MG screening mammo w CAD. The breast tissue is heterogeneously dense. This may lower the sensitivity of mammography. Stable calcifications in the right breast. There is no discrete abnormality. No significant new findings when compared with previous films. These results were verbally communicated with the patient and result sheet given to the patient on 05/22/17. ASSESSMENT: Benign, BI-RAD 2 RECOMMENDATION: Routine screening mammogram of both breasts in 1 year.
== END | disposition home or self-care (01) ==
LOC: RADMAMWWP 12:48
PROVIDERS: ATTEND Internal Medicine
DX: R92.8 Other abnormal and inconclusive findings on diagnostic imaging of breast (principal)
CPT/HCPCS: 77066; G0279

== ENCOUNTER → 2018-02-18 | Outpatient (CLI) | payer MEDICARE, OTHER ==
--- NOTE | 2018-02-18 10:09 | XR ---
EXAMINATION TYPE: XR Hip Complete LT DATE OF EXAM: 02/18/2018 COMPARISON: 11/24/2016 HISTORY: Pain TECHNIQUE: 2 views submitted FINDINGS: There is no evidence of erosive change or acute fracture. Postsurgical change and diffuse osteopenia. Chronic appearing deformity of the pubic rami. Soft tissue ossification noted likely postsurgical. S uggestion surgical change overlying the lumbosacral junction. IMPRESSION: 1. No evidence of acute fracture or dislocation. 2 postsurgical change with diffuse osteopenia and ev idence of remote trauma involving the pubic rami
== END | disposition home or self-care (01) ==
LOC: RADXRMAIN 09:40
PROVIDERS: ATTEND Internal Medicine
DX: M85.88 Other specified disorders of bone density and structure, other site (principal); M25.552 Pain in left hip; Z98.890 Other specified postprocedural states
CPT/HCPCS: 73502

== ENCOUNTER 2018-06-11 10:30 | Emergency (ER) | payer MEDICARE, OTHER ==
[2018-06-11 10:35] VITALS: RESP 18
[2018-06-11] MEDS ORDERED: KETOROLAC 60 MG/2 ML VIAL IM STA (10:48)
--- NOTE | 2018-06-11 10:53 | ED ---
General Adult HPI - General Chief complaint: Shortness of Breath Stated complaint: Chest Pain, MADISYN Time Seen by Provider: 06/11/18 10:30 Source: patient, RN notes reviewed Mode of arrival: ambulatory Limitations: no limitations - History of Present Illness Initial comments: This is a 57-year-old female presents emergency department stating that she was diagnosed with bronchitis on Saturday with her doctor and she states when she coughs she's having chest pain and shortness of breath. Patient states when she is not coughing she is not having any chest pain and she denies any shortness of breath per patient states she is producing quite a bit of phlegm. Patient states she's been on doxycycline since she saw her doctor on Saturday. Patient denies any fever chills. Patient denies any swelling to the legs or calf tenderness. Patient denies any abdominal pain patient nausea vomiting. Patient denies any lightheadedness or dizziness. Patient denies any palpitations. Patient states her chest also hurts if she presses on anteriorly. - Related Data Home Medications Medication Instructions Recorded Confirmed Escitalopram [Lexapro] 20 mg PO DAILY 08/18/13 06/11/18 Gabapentin [Neurontin] 800 mg PO TID 08/18/13 06/11/18 HYDROcodone/APAP 10-325MG [[place] 1 tab PO Q8H PRN 08/18/13 06/11/18 10-325] Potassium Chloride 20 meq PO BID 08/18/13 06/11/18 Pantoprazole Sodium [Protonix] 40 mg PO BID 12/31/13 06/11/18 Simvastatin [Zocor] 20 mg PO DAILY 12/31/13 06/11/18 Linaclotide [Linzess] 290 mcg PO QAM 05/21/15 06/11/18 Docusate Sodium [Doc-Q-Lace] 100 mg PO BID 11/04/15 06/11/18 Morphine Sulfate ER [Ms Contin 60 mg PO Q12HR 11/04/15 06/11/18 60Mg] Ranitidine HCl [Zantac] 300 mg PO TID 11/04/15 06/11/18 Ibuprofen [Motrin] 800 mg PO TID 09/13/16 06/11/18 Lidocaine 5% Oint [Xylocaine 5% 1 applic TOPICAL Q4H PRN 09/13/16 06/11/18 Oint] traZODone HCL 450 mg PO HS 06/11/18 06/11/18 Previous Rx's Medication Instructions Recorded Dicyclomine [Bentyl] 10 mg PO QID PRN #16 capsule 05/09/15 Metoclopramide HCl [Reglan] 10 mg PO TID PRN #15 tablet 06/13/15 Allergies Allergy/AdvReac Type Severity Reaction Status Date / Time celecoxib [From Celebrex] Allergy Swelling Verified 06/11/18 10:52 Iodinated Contrast- Oral and Allergy Dyspnea Verified 06/11/18 10:52 IV Dye [Iodinated Contrast Media - IV Dye] Penicillins Allergy Rash/Hives Verified 06/11/18 10:52 rofecoxib [From Vioxx] Allergy Swelling Verified 06/11/18 10:52 sumatriptan [From Imitrex] AdvReac Chest Pain Verified 06/11/18 10:52 sumatriptan succinate AdvReac Chest Pain Verified 06/11/18 10:52 [From Imitrex] tramadol HCl [From Ultram] AdvReac Nausea & Verified 06/11/18 10:52 Vomiting PAPER TAPE Allergy Itching Uncoded 06/11/18 10:35 Review of Systems ROS Statement: Those systems with pertinent positive or pertinent negative responses have been documented in the HPI. ROS Other: All systems not noted in ROS Statement are negative. Past Medical History Past Medical History: COPD, CVA/TIA, GERD/Reflux, Hyperlipidemia, Hypertension, Osteoarthritis (OA), Pneumonia, Pulmonary Embolus (PE), Seizure Disorder, Sleep Apnea/CPAP/BIPAP Additional Past Medical History / Comment(s): Chronic pain syndrome, opiate dependence. ONLY USES CPAP SOMETIMES, hiatal hernia, migraines,bronchitis,sinus problems, endometreosis,stress incont of urine,constipation. LAST SEIZURE WAS A CHILD. PT HAS BEEN HAVING FREQ FALLS. LAST FALL WAS 08/24/16 HAS TO HAVE 12 CHRISTIAN IN LLE WHICH REMOVED 09/10/16. History of Any Multi-Drug Resistant Organisms: MRSA Date of last positivie culture/infection: 2010 MDRO Source:: LEFT LEG Past Surgical History: Adenoidectomy, Back Surgery, Cholecystectomy, Orthopedic Surgery, Tonsillectomy Additional Past Surgical History / Comment(s): Lung surgery-to removed blood clot. BILAT KNEE scopes BILAT TKA AND ADRIA. RT LEG TUMOR REMOVALed(benign). Back has rika/screws. Lt shoulder replaced. Rt shoulder has pin. PAIN CLINIC PROCEDURES. LAPROSCOPY,GANGLION CYST REMOVED HERMINIA WRISTS. LT CTR, BUNIONECTOMY. EGD/COLONOSCOPY. CORTISONE SHOT 09/11/16 Past Anesthesia/Blood Transfusion Reactions: Motion Sickness, Postoperative Nausea & Vomiting (PONV) Additional Past Anesthesia/Blood Transfusion Reaction / Comment(s): CLAUSTROPHOBIA Past Psychological History: Anxiety, Depression Smoking Status: Current every day smoker Past Alcohol Use History: None Reported Past Drug Use History: None Reported - Past Family History Father Family Medical History: Cancer Additional Family Medical History / Comment(s): bowel cancer Mother Additional Family Medical History / Comment(s): crohns Sister(s) Family Medical History: Cancer General Exam - General Exam Comments Initial Comments: GENERAL: Patient is well-developed and well-nourished. Patient is nontoxic and well- hydrated and is in no acute distress. ENT: Neck is soft and supple. No significant lymphadenopathy is noted. Oropharynx is clear. Moist mucous membranes. Neck has full range of motion without eliciting any pain. EYES: The sclera were anicteric and conjunctiva were pink and moist. Extraocular movements were intact and pupils were equal round and reactive to light. Eyelids were unremarkable. PULMONARY: Unlabored respirations. Good breath sounds bilaterally. No audible rales rhonchi or wheezing was noted. CARDIOVASCULAR: There is a regular rate and rhythm without any murmurs gallops or rubs. ABDOMEN: Soft and nontender with normal bowel sounds. No palpable organomegaly was noted. There is no palpable pulsatile mass. SKIN: Skin is clear with no lesions or rashes and otherwise unremarkable. NEUROLOGIC: Patient is alert and oriented x3. Cranial nerves II through XII are grossly intact. Motor and sensory are also intact. Normal speech, volume and content. Symmetrical smile. MUSCULOSKELETAL: Normal extremities with adequate strength and full range of motion. LYMPHATICS: No significant lymphadenopathy is noted PSYCHIATRIC: Normal psychiatric evaluation. Limitations: no limitations Course Vital Signs 06/11/18 10:32 Temperature 98.2 F Pulse Rate 84 Respiratory 18 Rate Blood Pressure 117/82 O2 Sat by Pulse 96 Oximetry Medical Decision Making - Medical Decision Making EKG shows a sinus rhythm with occasional PAC at 74 bpm LA interval 192 QRS is 82 QT interval 366 QTC is 406. Patient's EKG shows no ST segment elevation or depression. Patient's chest x-ray shows no acute abnormality. Patient got a gram of Rocephin in the emergency department. Disposition Clinical Impression: Acute bronchitis Disposition: HOME SELF-CARE Instructions (If sedation given, give patient instructions): Acute Bronchitis (ED) Additional Instructions: Patient is to follow-up with primary medical care doctor. Is patient prescribed a controlled substance at d/c from ED?: No Referrals: Alon Esteves MD [Primary Care Provider] - 1-2 days Time of Disposition: 11:53
--- NOTE | 2018-06-11 11:30 | XR ---
EXAMINATION TYPE: XR chest 2V DATE OF EXAM: 06/11/2018 COMPARISON: X-ray November 19, 2016 HISTORY: History of COPD with chest pain and difficulty in breathing. TECHNIQUE: Frontal and lateral views of the chest are obtained. FINDINGS: There is chronic emphysematous change without suspicious new focal air space opacity, pleu ral effusion, or pneumothorax seen. The cardiac silhouette size is stable and upper limits of normal . The osseous structures remain demineralized. Surgical hardware left shoulder level is redemonstra glory. Metallic anchor right humeral head level is again seen. Exaggerated thoracic kyphosis with advan donya compression fracture at roughly T8 level in the mid thoracic spine is noted presumed chronic. IMPRESSION: Chronic changes without acute pulmonary process.
[2018-06-11] MEDS ORDERED: cefTRIAXone 1,000 MG VIAL (IM USE) IM STA (11:46)
[2018-06-11] MEDS ORDERED: cefTRIAXone IN SWFI 1,000 MG/10 ML SYRINGE IVP STA (12:03)
[2018-06-11 12:17] VITALS: BP 105/77; PULSE 73; TEMP 97.8
== END 2018-06-11 12:16 | disposition home or self-care (01) ==
LOC: EC 10:30
DX: J20.9 Acute bronchitis, unspecified (principal); K21.9 Gastro-esophageal reflux disease without esophagitis; E78.5 Hyperlipidemia, unspecified; F41.9 Anxiety disorder, unspecified; F32.9 Major depressive disorder, single episode, unspecified; G47.30 Sleep apnea, unspecified; M19.90 Unspecified osteoarthritis, unspecified site; F17.200 Nicotine dependence, unspecified, uncomplicated; Z79.899 Other long term (current) drug therapy; Z88.6 Allergy status to analgesic agent; Z88.0 Allergy status to penicillin; Z91.041 Radiographic dye allergy status; Z88.8 Allergy status to other drugs, medicaments and biological substances; Z88.5 Allergy status to narcotic agent; Z91.048 Other nonmedicinal substance allergy status; Z96.612 Presence of left artificial shoulder joint
CPT/HCPCS: 71046; 93005; 96372; 96374; 99285

== ENCOUNTER → 2019-04-13 | Outpatient (CLI) | payer MEDICARE, OTHER ==
--- NOTE | 2019-04-13 12:22 | CT ---
EXAMINATION TYPE: CT cervical spine wo con DATE OF EXAM: 04/13/2019 COMPARISON: CT cervical spine November 19, 2016 HISTORY: Spondylosis without myelopathy or radiculopathy, spondylolisthesis, cervicalgia. CT DLP: 783.6 mGycm. Automated Exposure Control for Dose Reduction was Utilized. TECHNIQUE: CT scan of the cervical spine is obtained without contrast, axial images are obtained, sa gittal and coronal reformatted images are also reviewed. FINDINGS: Cervical spine is redemonstrated in its entirety from C1 through upper thoracic levels, dem onstrates stable and satisfactory alignment without evidence of acute fracture or dislocation. There is slight grade 1 retrolisthesis of C3 on C4 redemonstrated. There is exaggerated cervical curvature again seen. Levoconvex scoliotic curvature on coronal images is redemonstrated Prevertebral soft tiss ue remains within normal limits. The C1-C2 articulation is within normal limits on the coronal image s. Vertebral body heights remain within normal limits. There is [id number] disc space narrowing right C3-C4 level. There is vacuum disc phenomenon C5-C6 level on current study without significant disc space narrowing. Review of axial images shows focal left paracentral disc herniation C5-C6 level effacing the anterior thecal sac on image 68 not significantly changed from prior. Smaller spur disc complex and spondylol isthesis effaces the anterior thecal sac at C3-C4 level with right-sided uncovertebral facet degenera tive change axial image 51. [id number] emphysematous change in the lung apices with scarring an d bleb formation redemonstrated. IMPRESSION: As above. No significant change from prior.
--- NOTE | 2019-04-13 12:55 | CT ---
EXAMINATION TYPE: CT thoracic spine wo con DATE OF EXAM: 04/13/2019 COMPARISON: CT thorax September 22, 2016. HISTORY: Spondylosis without radiculopathy or myelopathy and collapsed vertebra per order. CT DLP: 783.6 mGycm Automated exposure control for dose reduction was used. FINDINGS: Redemonstration of severe compression type fracture deformity at T8 level with exaggerated thoracic k yphosis. Osseous structures are demineralized. Slight S-shaped scoliosis levoconvex upper thoracic sp ine and dextroconvex midthoracic spine redemonstrated. Posterior calcified disc herniation effaces th e anterior thecal sac at C5-C6 level sagittal image 14 and axial image 22. No additional large disc herniation seen on axial images. Visualized lungs show emphysematous change with some dependent atelectasis in both lower lobes and scattered linear scarring and/or atelectasis bilateral bases near diaphragm. New 4 mm right lower lobe nodule axial image 44. Coronary artery calc ination is present which is noted marker for underlying coronary artery disease. IMPRESSION: Demineralization with severe chronic compression fracture T8 level redemonstrated. No sig nificant change from 2017 CT.
== END | disposition home or self-care (01) ==
LOC: RADCTMAIN 10:54
PROVIDERS: ATTEND Physical Medicine & Rehabilitation
DX: M99.71 Connective tissue and disc stenosis of intervertebral foramina of cervical region (principal); M50.222 Other cervical disc displacement at C5-C6 level; M43.12 Spondylolisthesis, cervical region; M48.54XA Collapsed vertebra, not elsewhere classified, thoracic region, initial encounter for fracture; M47.817 Spondylosis without myelopathy or radiculopathy, lumbosacral region; M48.062 Spinal stenosis, lumbar region with neurogenic claudication; M96.1 Postlaminectomy syndrome, not elsewhere classified; M51.17 Intervertebral disc disorders with radiculopathy, lumbosacral region; M47.814 Spondylosis without myelopathy or radiculopathy, thoracic region; M48.54XD Collapsed vertebra, not elsewhere classified, thoracic region, subsequent encounter for fracture with routine healing
CPT/HCPCS: 72125; 72128

== ENCOUNTER 2019-05-19 14:06 | Observation (INO) | payer MEDICARE, OTHER ==
[2019-05-19] MEDS ORDERED: NITROGLYCERIN OINT 1 INCH/GM PACKET TOPICAL STA (14:25)
[2019-05-19] MEDS ORDERED: ASPIRIN 81 MG PO STA (14:25)
[2019-05-19] MEDS ORDERED: ACETAMINOPHEN TAB 325 MG TAB PO STA (14:26)
--- NOTE | 2019-05-19 14:33 | ED ---
General Adult HPI - General Chief complaint: Chest Pain Stated complaint: chest pain Time Seen by Provider: 05/19/19 14:10 Source: patient, RN notes reviewed, old records reviewed Mode of arrival: ambulatory Limitations: no limitations - History of Present Illness Initial comments: This a 58-year-old female who presents emergency Department complaining of chest pain. Patient states she has a history of high cholesterol as well as chronic pain and she continues to smoke. Patient states the pain is been intermittent on and off for the last week or so she states that the pain usually last between 30-45 minutes. Patient states she short of breath when it occurs she states it radiates into her neck a little. Patient denies any nausea diaphoretic episodes. Patient states she went over to her primary medical care doctor's office in the primary medical care doctor wanted to come to the emergency department and get admitted to the hospital. Patient denies any recent fever chills or cough patient denies any abdominal pain patient denies nausea vomiting diarrhea. Patient denies any lightheadedness or dizziness. Patient states she has a mild headache but she denies any numbness or weakness - Related Data Home Medications Medication Instructions Recorded Confirmed Escitalopram [Lexapro] 20 mg PO DAILY@1300 08/18/13 05/19/19 Gabapentin [Neurontin] 800 mg PO TID 08/18/13 05/19/19 HYDROcodone/APAP 10-325MG [[place] 1 tab PO Q8H 08/18/13 05/19/19 10-325] Potassium Chloride 20 meq PO BID 08/18/13 05/19/19 Pantoprazole Sodium [Protonix] 40 mg PO DAILY 12/31/13 05/19/19 Simvastatin [Zocor] 20 mg PO DAILY@1300 12/31/13 05/19/19 Linaclotide [Linzess] 290 mcg PO DAILY 05/21/15 05/19/19 Morphine Sulfate ER [Ms Contin 60 mg PO Q12HR 11/04/15 05/19/19 60Mg] Ranitidine HCl [Zantac] 300 mg PO TID 11/04/15 05/19/19 Ibuprofen [Motrin] 800 mg PO BID 09/13/16 05/19/19 Lidocaine 5% Oint [Xylocaine 5% 1 applic TOPICAL Q4H PRN 09/13/16 05/19/19 Oint] traZODone HCL 450 mg PO HS 06/11/18 05/19/19 Baclofen 10 mg PO HS 05/19/19 05/19/19 Dicyclomine [Bentyl] 10 mg PO TID 05/19/19 05/19/19 Metoclopramide HCl [Reglan] 10 mg PO AC-TID PRN 05/19/19 05/19/19 Allergies Allergy/AdvReac Type Severity Reaction Status Date / Time celecoxib [From Celebrex] Allergy Swelling Verified 05/19/19 15:27 Iodinated Contrast Media Allergy Dyspnea Verified 05/19/19 15:27 [Iodinated Contrast Media - IV Dye] Penicillins Allergy Rash/Hives Verified 05/19/19 15:27 rofecoxib [From Vioxx] Allergy Swelling Verified 05/19/19 15:27 sumatriptan [From Imitrex] AdvReac Chest Pain Verified 05/19/19 15:27 sumatriptan succinate AdvReac Chest Pain Verified 05/19/19 15:27 [From Imitrex] tramadol HCl [From Ultram] AdvReac Nausea & Verified 05/19/19 15:27 Vomiting PAPER TAPE Allergy Itching Uncoded 05/19/19 14:12 Review of Systems ROS Statement: Those systems with pertinent positive or pertinent negative responses have been documented in the HPI. ROS Other: All systems not noted in ROS Statement are negative. Past Medical History Past Medical History: COPD, CVA/TIA, GERD/Reflux, Hyperlipidemia, Hypertension, Osteoarthritis (OA), Pneumonia, Pulmonary Embolus (PE), Seizure Disorder, Sleep Apnea/CPAP/BIPAP Additional Past Medical History / Comment(s): Chronic pain syndrome, opiate dependence. ONLY USES CPAP SOMETIMES, hiatal hernia, migraines,bronchitis,sinus problems, endometreosis,stress incont of urine,constipation. LAST SEIZURE WAS A CHILD. PT HAS BEEN HAVING FREQ FALLS. LAST FALL WAS 08/24/16 HAS TO HAVE 12 [facility] IN LLE WHICH REMOVED 09/10/16. History of Any Multi-Drug Resistant Organisms: MRSA Date of last positivie culture/infection: 2010 MDRO Source:: LEFT LEG Past Surgical History: Adenoidectomy, Back Surgery, Cholecystectomy, Orthopedic Surgery, Tonsillectomy Additional Past Surgical History / Comment(s): Lung surgery-to removed blood clot. BILAT KNEE scopes BILAT TKA AND ADRIA. RT LEG TUMOR REMOVALed(benign). Back has rika/screws. Lt shoulder replaced. Rt shoulder has pin. PAIN CLINIC PROCEDURES. LAPROSCOPY,GANGLION CYST REMOVED HERMINIA WRISTS. LT CTR, BUNIONECTOMY. EGD/COLONOSCOPY. CORTISONE SHOT 09/11/16 Past Anesthesia/Blood Transfusion Reactions: Motion Sickness, Postoperative Nausea & Vomiting (PONV) Additional Past Anesthesia/Blood Transfusion Reaction / Comment(s): CLAUSTROPHOBIA Past Psychological History: Anxiety, Depression Smoking Status: Current every day smoker Past Alcohol Use History: None Reported Past Drug Use History: None Reported - Past Family History Father Family Medical History: Cancer Additional Family Medical History / Comment(s): bowel cancer Mother Additional Family Medical History / Comment(s): crohns Sister(s) Family Medical History: Cancer General Exam - General Exam Comments Initial Comments: GENERAL: Patient is well-developed and well-nourished. Patient is nontoxic and well- hydrated and is in no acute distress. ENT: Neck is soft and supple. No significant lymphadenopathy is noted. Oropharynx is clear. Moist mucous membranes. Neck has full range of motion without eliciting any pain. EYES: The sclera were anicteric and conjunctiva were pink and moist. Extraocular movements were intact and pupils were equal round and reactive to light. Eyelids were unremarkable. PULMONARY: Unlabored respirations. Good breath sounds bilaterally. No audible rales rhonchi or wheezing was noted. CARDIOVASCULAR: There is a regular rate and rhythm without any murmurs gallops or rubs. ABDOMEN: Soft and nontender with normal bowel sounds. No palpable organomegaly was noted. There is no palpable pulsatile mass. SKIN: Skin is clear with no lesions or rashes and otherwise unremarkable. NEUROLOGIC: Patient is alert and oriented x3. Cranial nerves II through XII are grossly intact. Motor and sensory are also intact. Normal speech, volume and content. Symmetrical smile. MUSCULOSKELETAL: Normal extremities with adequate strength and full range of motion. No lower extremity swelling or edema. No calf tenderness. LYMPHATICS: No significant lymphadenopathy is noted PSYCHIATRIC: Normal psychiatric evaluation. Limitations: no limitations Course Vital Signs 05/19/19 14:09 Temperature 97.4 F L Pulse Rate 87 Respiratory 20 Rate Blood Pressure 122/82 O2 Sat by Pulse 96 Oximetry Medical Decision Making - Medical Decision Making EKG shows normal sinus rhythm at 76 bpm CA interval is 184 QRS is 82 QT interval 374 QTC is 420. Patient's EKG shows no ST segment elevation or depression. Chest x-ray shows no acute abnormalities. I started the patient on heparin and I spoke with Dr. Esteves he agreed to admit the patient admitted the patient wrote admitting orders. I continued heparin and aspirin and the patient floor. I consulted cardiology. - Lab Data Result diagrams: 05/19/19 14:26 05/19/19 14:26 Lab Results 05/19/19 05/19/19 05/19/19 Range/Units 14:26 14:26 14:26 WBC 8.9 (3.8-10.6) k/uL RBC 4.04 (3.80-5.40) m/uL Hgb 13.1 (11.4-16.0) gm/dL Hct 39.3 (34.0-46.0) % MCV 97.3 (80.0-100.0) fL MCH 32.4 (25.0-35.0) pg MCHC 33.3 (31.0-37.0) g/dL RDW 12.5 (11.5-15.5) % Plt Count 280 (150-450) k/uL Neutrophils % 64 % Lymphocytes % 28 % Monocytes % 3 % Eosinophils % 2 % Basophils % 1 % Neutrophils # 5.7 (1.3-7.7) k/uL Lymphocytes # 2.5 (1.0-4.8) k/uL Monocytes # 0.3 (0-1.0) k/uL Eosinophils # 0.2 (0-0.7) k/uL Basophils # 0.1 (0-0.2) k/uL PT 10.4 (9.0-12.0) sec INR 1.0 (<1.2) APTT 26.7 (22.0-30.0) sec Sodium 134 L (137-145) mmol/L Potassium 3.8 (3.5-5.1) mmol/L Chloride 101 (98-107) mmol/L Carbon Dioxide 28 (22-30) mmol/L Anion Gap 5 mmol/L BUN 17 (7-17) mg/dL Creatinine 0.56 (0.52-1.04) mg/dL Est GFR (CKD-EPI)AfAm >90 (>60 ml/min/1.73 sqM) Est GFR (CKD-EPI)NonAf >90 (>60 ml/min/1.73 sqM) Glucose 94 (74-99) mg/dL Calcium 9.1 (8.4-10.2) mg/dL Magnesium 2.0 (1.6-2.3) mg/dL Total Bilirubin 0.3 (0.2-1.3) mg/dL AST 15 (14-36) U/L ALT 8 (4-34) U/L Alkaline Phosphatase 82 (38-126) U/L Troponin I (0.000-0.034) ng/mL Total Protein 6.3 (6.3-8.2) g/dL Albumin 3.9 (3.5-5.0) g/dL 05/19/19 Range/Units 14:26 WBC (3.8-10.6) k/uL RBC (3.80-5.40) m/uL Hgb (11.4-16.0) gm/dL Hct (34.0-46.0) % MCV (80.0-100.0) fL MCH (25.0-35.0) pg MCHC (31.0-37.0) g/dL RDW (11.5-15.5) % Plt Count (150-450) k/uL Neutrophils % % Lymphocytes % % Monocytes % % Eosinophils % % Basophils % % Neutrophils # (1.3-7.7) k/uL Lymphocytes # (1.0-4.8) k/uL Monocytes # (0-1.0) k/uL Eosinophils # (0-0.7) k/uL Basophils # (0-0.2) k/uL PT (9.0-12.0) sec INR (<1.2) APTT (22.0-30.0) sec Sodium (137-145) mmol/L Potassium (3.5-5.1) mmol/L Chloride (98-107) mmol/L Carbon Dioxide (22-30) mmol/L Anion Gap mmol/L BUN (7-17) mg/dL Creatinine (0.52-1.04) mg/dL Est GFR (CKD-EPI)AfAm (>60 ml/min/1.73 sqM) Est GFR (CKD-EPI)NonAf (>60 ml/min/1.73 sqM) Glucose (74-99) mg/dL Calcium (8.4-10.2) mg/dL Magnesium (1.6-2.3) mg/dL Total Bilirubin (0.2-1.3) mg/dL AST (14-36) U/L ALT (4-34) U/L Alkaline Phosphatase (38-126) U/L Troponin I <0.012 (0.000-0.034) ng/mL Total Protein (6.3-8.2) g/dL Albumin (3.5-5.0) g/dL Critical Care Time Critical Care Time: Yes Total Critical Care Time: 35 Disposition Clinical Impression: Unstable angina pectoris Disposition: ADMITTED IP TO THIS HOSP Referrals: Alon Esteves MD [Primary Care Provider] - 1-2 days Time of Disposition: 15:52
[2019-05-19 14:41] LABS: Basophils # (A) 0.1 k/uL (0-0.2); Basophils % (A) 1 %; Eosinophils # (A) 0.2 k/uL (0-0.7); Eosinophils % (A) 2 %; HCT 39.3 % (34.0-46.0); HGB 13.1 gm/dL (11.4-16.0); Lymphocytes # (A) 2.5 k/uL (1.0-4.8); Lymphocytes % (A) 28 %; MCH 32.4 pg (25.0-35.0); MCHC 33.3 g/dL (31.0-37.0); MCV 97.3 fL (80.0-100.0); Mean Platelet Volume 7.6; Monocytes # (A) 0.3 k/uL (0-1.0); Monocytes % (A) 3 %; Neutrophils # (A) 5.7 k/uL (1.3-7.7); Neutrophils % (A) 64 %; Platelet Count 280 k/uL (150-450); RBC 4.04 m/uL (3.80-5.40); RDW 12.5 % (11.5-15.5); WBC 8.9 k/uL (3.8-10.6)
[2019-05-19 14:49] LABS: Partial Thromboplastin Time 26.7 sec (22.0-30.0); Prothrombin Time 10.4 sec (9.0-12.0)
--- NOTE | 2019-05-19 14:54 | XR ---
EXAMINATION TYPE: XR chest 2V DATE OF EXAM: 05/19/2019 COMPARISON: Prior chest x-ray dated 06/11/2018, CT chest 09/22/2016 HISTORY: Chest pain and shortness of breath TECHNIQUE: Frontal and lateral views of the chest are obtained. FINDINGS: There is no interval change. Prominent lung volumes may be indicative of underlying COPD, there is underlying emphysema. Cardiac silhouette, pulmonary vascularity and tito are unchanged, hear t is likely enlarged. Postop changes are noted to the left shoulder. Patient is rotated. No evident p neumothorax or pleural effusion. Some minimal patchy density at the level the left costophrenic angle is stable, there may be some local subsegmental atelectatic changes or scarring. There is likely a s eddie curvature. Wedge compression deformities are present within the thoracic spine which are chroni c. Old sternal fractures are also again noted. IMPRESSION: No acute cardiopulmonary process. Findings described above.
[2019-05-19 14:57] LABS: ALT 8 U/L (4-34); AST 15 U/L (14-36); African American GFR (CKD) >90 (>60 ml/min/1.73 sqM); Albumin 3.9 g/dL (3.5-5.0); Alkaline Phosphatase 82 U/L (38-126); Anion Gap 5 mmol/L; Blood Urea Nitrogen 17 mg/dL (7-17); Calcium 9.1 mg/dL (8.4-10.2); Carbon Dioxide 28 mmol/L (22-30); Chloride 101 mmol/L (98-107); Glucose 94 mg/dL (74-99); Non-African American GFR(CKD) >90 (>60 ml/min/1.73 sqM); Potassium 3.8 mmol/L (3.5-5.1); Sodium 134 mmol/L (137-145); Total Bilirubin 0.3 mg/dL (0.2-1.3); Total Protein 6.3 g/dL (6.3-8.2)
[2019-05-19] MEDS ORDERED: NITROGLYCERIN SL TABS 0.4 MG TAB SUBLINGUAL PRN (15:52)
[2019-05-19 15:54] VITALS: RESP 18
[2019-05-19] MEDS: NITROGLYCERIN OINT 1 INCH/GM PACKET TOPICAL SCH ×2 (17:35→23:37)
[2019-05-19] MEDS ORDERED: METOCLOPRAMIDE 10 MG TAB PO PRN (19:08)
[2019-05-19] MEDS ORDERED: LIDOCAINE 5% OINTMENT 50 GM JAR TOPICAL PRN (19:08)
[2019-05-19] MEDS: NICOTINE 21MG/24HR PATCH TRANSDERM SCH (20:10)
[2019-05-19] MEDS: MORPHINE SULFATE ER 60 MG TABLET PO SCH (20:11)
[2019-05-19] MEDS: POTASSIUM CHLORIDE ER 20 MEQ TAB.ER PO SCH (20:11)
[2019-05-19] MEDS: FAMOTIDINE 20 MG TAB PO SCH (20:11)
[2019-05-19] MEDS: GABAPENTIN 400 MG CAP PO SCH (20:11)
[2019-05-19] MEDS: IBUPROFEN 800 MG TAB PO SCH (20:12)
[2019-05-19] MEDS: DICYCLOMINE 10 MG CAP PO SCH (20:25)
[2019-05-19] MEDS ORDERED: TRAZODONE HCL PO SCH (21:00)
[2019-05-19] MEDS ORDERED: BACLOFEN 10 MG TAB PO SCH (21:00)
[2019-05-19] MEDS ORDERED: traZODone HCL 50 MG TAB PO SCH (21:00)
[2019-05-19] MEDS: HYDROcodone/APAP 10-325MG 1 EACH TAB PO SCH (23:35)
[2019-05-20 03:04] LABS: Cholesterol 138 mg/dL (<200); HDL Cholesterol 72 mg/dL (40-60); LDL Cholesterol,Calculated 50 mg/dL (0-99); Triglycerides 82 mg/dL (<150)
[2019-05-20] MEDS: NITROGLYCERIN OINT 1 INCH/GM PACKET TOPICAL SCH ×2 (05:46→07:47)
[2019-05-20] MEDS ORDERED: PANTOPRAZOLE 40 MG TABLET PO SCH (07:30)
[2019-05-20] MEDS: DICYCLOMINE 10 MG CAP PO SCH (07:44)
[2019-05-20] MEDS: HYDROcodone/APAP 10-325MG 1 EACH TAB PO SCH (07:44)
[2019-05-20] MEDS: FAMOTIDINE 20 MG TAB PO SCH (07:45)
[2019-05-20] MEDS: IBUPROFEN 800 MG TAB PO SCH (07:45)
[2019-05-20] MEDS: MORPHINE SULFATE ER 60 MG TABLET PO SCH (07:45)
[2019-05-20] MEDS: GABAPENTIN 400 MG CAP PO SCH (07:45)
[2019-05-20] MEDS: POTASSIUM CHLORIDE ER 20 MEQ TAB.ER PO SCH (07:46)
[2019-05-20] MEDS: NICOTINE 21MG/24HR PATCH TRANSDERM SCH (07:47)
[2019-05-20] MEDS ORDERED: ASPIRIN 325 MG TAB PO SCH (09:00)
[2019-05-20] MEDS ORDERED: NON FORMULARY DRUG (Linaclotide [Linzess] 290 MCG) PO SCH (09:00)
[2019-05-20] MEDS ORDERED: ASPIRIN 81 MG PO SCH (09:00)
--- NOTE | 2019-05-20 09:39 | P.CRDCN ---
History of Present Illness History of present illness: HISTORY OF PRESENTING ILLNESS This is a pleasant 58-year-old female past medical history significant for dyslipidemia, chronic nicotine dependence, COPD and chronic back and neck p ain. 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 We have been asked to see in consultation for chest pain. She states for the previous 2-3 weeks she has been experiencing a discomfort in her chest in the midsternal region that radiates out on both sides across her breast. The pain is sharp in nature, worse with deep inspiration, worse with palpation and movement of her torso. She states approximately 3 weeks ago she had a mechanical trip and fall and suffered a compression fracture in her back. She follows regularly with Dr. Echevarria. She denies associated shortness of breath, dizziness, nausea, vomiting or diaphoresis. DIAGNOSTICS EKG reveals his mechanism with no acute ST-T wave abnormalities noted 2. Chest xray underlying COPD with no acute cardiopulmonary process. Laboratory reviewed, CBC unremarkable, sodium 134, potassium 3.8, creatinine 0.56, cardiac enzymes negative 3, LDL 50 and HDL 72. Current cardiac medications include simvastatin 20 mg daily. REVIEW OF SYSTEMS At the time of my exam: CONSTITUTIONAL: Denies fever or chills. CARDIOVASCULAR: Denies chest pain, shortness of breath, orthopnea, PND or palpitations. RESPIRATORY: Denies cough. GASTROINTESTINAL: Denies abdominal pain, diarrhea, constipation, nausea or vom iting. MUSCULOSKELETAL: Complains of mid back and anterior chest sharp pain worse with movement or deep inspiration. NEUROLOGIC: Denies numbness, tingling or weakness. ENDOCRINE: Denies fatigue, weight change, polydipsia or polyurina. GENITOURINARY: Denies burning, hematuria or urgency with micturation. HEMATOLOGIC: Denies history of anemia or bleeding. PHYSICAL EXAMINATION Blood pressure 104/68 heart rate 52 afebrile and maintaining oxygen saturation on room air. CONSTITUTIONAL: No apparent distress. Frail. Appears older than stated age. HEENT: Head is normocephalic. Pupils are equal, round. Sclerae anicteric. Mucous membranes of the mouth are moist. No JVD. No carotid bruit. CHEST EXAMINATION: Lungs are clear to auscultation. No chest wall tenderness is noted on palpation or with deep breathing. HEART EXAMINATION: Regular rate and rhythm. S1, S2 heard. No murmurs, gallops or rub. ABDOMEN: Soft, nontender. Positive bowel sounds. EXTREMITIES: 2+ peripheral pulses, no lower extremity edema and no calf tenderness. NEUROLOGIC EXAMINATION: Patient is awake, alert and oriented x3. ASSESSMENT Musculoskeletal chest pain, an acute coronary event has been ruled out. Compression fracture status post fall Dyslipidemia COPD Chronic nicotine dependence Chronic pain syndrome PLAN An acute coronary event has been ruled out. Pain is atypical and related to musculoskeletal injury. Recommend aggressive physical therapy and back strengthening exercises. Smoking cessation discussed in great detail. No further cardiac workup at this time. Given her risk factor profile recommend following up in the office with Dr. Morocho in 2 weeks for outpatient stress testing. Thank you kindly for this consultation. Nurse Practitioner note has been reviewed, I agree with a documented findings a nd plan of care. Patient was seen and examined. Past Medical History Past Medical History: COPD, CVA/TIA, GERD/Reflux, Hyperlipidemia, Hypertension, Osteoarthritis (OA), Pneumonia, Pulmonary Embolus (PE), Seizure Disorder, Sleep Apnea/CPAP/BIPAP Additional Past Medical History / Comment(s): Chronic pain syndrome, opiate dependence. ONLY USES CPAP SOMETIMES, hiatal hernia, migraines,bronchitis,sinus problems, endometreosis,stress incont of urine,constipation. LAST SEIZURE WAS A CHILD. History of Any Multi-Drug Resistant Organisms: MRSA Date of last positivie culture/infection: 2010 MDRO Source:: LEFT LEG Past Surgical History: Adenoidectomy, Back Surgery, Cholecystectomy, Orthopedic Surgery, Tonsillectomy Additional Past Surgical History / Comment(s): Lung surgery-to removed blood clot. BILAT KNEE scopes BILAT TKA AND ADRIA. RT LEG TUMOR REMOVALed(benign). Back has rika/screws. Lt shoulder replaced. Rt shoulder has pin. PAIN CLINIC PROCEDURES. LAPROSCOPY,GANGLION CYST REMOVED HERMINIA WRISTS. LT CTR, BUNIONECTOMY. EGD/COLONOSCOPY. CORTISONE SHOT 09/11/16 Past Anesthesia/Blood Transfusion Reactions: Motion Sickness, Postoperative Nausea & Vomiting (PONV) Additional Past Anesthesia/Blood Transfusion Reaction / Comment(s): CLAUSTROPHOBIA Past Psychological History: Anxiety, Depression Smoking Status: Current every day smoker Past Alcohol Use History: None Reported Additional Past Alcohol Use History / Comment(s): Started smoking at age 12 or 13, smokes 1.5 ppd. Past Drug Use History: None Reported - Past Family History Father Family Medical History: Cancer Additional Family Medical History / Comment(s): bowel cancer Mother Additional Family Medical History / Comment(s): crohns Sister(s) Family Medical History: Cancer Medications and Allergies Home Medications Medication Instructions Recorded Confirmed Type Escitalopram [Lexapro] 20 mg PO DAILY@1300 08/18/13 05/19/19 History Gabapentin [Neurontin] 800 mg PO TID 08/18/13 05/19/19 History HYDROcodone/APAP 10-325MG [[place] 1 tab PO Q8H 08/18/13 05/19/19 History 10-325] Potassium Chloride 20 meq PO BID 08/18/13 05/19/19 History Pantoprazole Sodium [Protonix] 40 mg PO DAILY 12/31/13 05/19/19 History Simvastatin [Zocor] 20 mg PO DAILY@1300 12/31/13 05/19/19 History Linaclotide [Linzess] 290 mcg PO DAILY 05/21/15 05/19/19 History Morphine Sulfate ER [Ms Contin 60 mg PO Q12HR 11/04/15 05/19/19 History 60Mg] Ranitidine HCl [Zantac] 300 mg PO TID 11/04/15 05/19/19 History Ibuprofen [Motrin] 800 mg PO BID 09/13/16 05/19/19 History Lidocaine 5% Oint [Xylocaine 5% 1 applic TOPICAL Q4H PRN 09/13/16 05/19/19 History Oint] traZODone HCL 450 mg PO HS 06/11/18 05/19/19 History Baclofen 10 mg PO HS 05/19/19 05/19/19 History Dicyclomine [Bentyl] 10 mg PO TID 05/19/19 05/19/19 History Metoclopramide HCl [Reglan] 10 mg PO AC-TID PRN 05/19/19 05/19/19 History Allergies Allergy/AdvReac Type Severity Reaction Status Date / Time celecoxib [From Celebrex] Allergy Swelling Verified 05/19/19 15:27 Iodinated Contrast Media Allergy Dyspnea Verified 05/19/19 15:27 [Iodinated Contrast Media - IV Dye] Penicillins Allergy Rash/Hives Verified 05/19/19 15:27 rofecoxib [From Vioxx] Allergy Swelling Verified 05/19/19 15:27 sumatriptan [From Imitrex] AdvReac Chest Pain Verified 05/19/19 15:27 sumatriptan succinate AdvReac Chest Pain Verified 05/19/19 15:27 [From Imitrex] tramadol HCl [From Ultram] AdvReac Nausea & Verified 05/19/19 15:27 Vomiting PAPER TAPE Allergy Itching Uncoded 05/19/19 14:12 Physical Exam Vitals: Vital Signs Temp Pulse Pulse Pulse Resp BP BP 05/20/19 08:00 18 05/20/19 07:00 97.3 F L 52 L 18 104/68 05/20/19 04:00 97.4 F L 70 18 114/70 05/20/19 00:00 71 18 116/70 05/19/19 19:28 97.7 F 65 18 115/72 05/19/19 17:47 97.5 F L 70 18 131/79 05/19/19 17:00 98.0 F 82 18 115/75 05/19/19 15:52 80 18 102/74 05/19/19 14:09 97.4 F L 87 20 122/82 Pulse Ox 05/20/19 08:00 05/20/19 07:00 93 L 05/20/19 04:00 95 05/20/19 00:00 96 05/19/19 19:28 96 05/19/19 17:47 99 05/19/19 17:00 96 05/19/19 15:52 96 05/19/19 14:09 96 Intake and Output 05/19/19 05/20/19 05/20/19 22:59 06:59 14:59 Intake Total 240 Balance 240 Intake: Oral 240 Other: Voiding Method Toilet Toilet Toilet # Voids 4 Weight 59.2 kg Results 05/19/19 14:26 05/19/19 14:26 Cardiac Enzymes 05/19/19 05/19/19 05/19/19 Range/Units 14:26 14:26 20:13 AST 15 (14-36) U/L Troponin I <0.012 <0.012 (0.000-0.034) ng/mL 05/20/19 Range/Units 02:35 AST (14-36) U/L Troponin I <0.012 (0.000-0.034) ng/mL Coagulation 05/19/19 Range/Units 14:26 PT 10.4 (9.0-12.0) sec APTT 26.7 (22.0-30.0) sec Lipids 05/20/19 Range/Units 02:35 Triglycerides 82 (<150) mg/dL Cholesterol 138 (<200) mg/dL HDL Cholesterol 72 H (40-60) mg/dL CBC 05/19/19 Range/Units 14:26 WBC 8.9 (3.8-10.6) k/uL RBC 4.04 (3.80-5.40) m/uL Hgb 13.1 (11.4-16.0) gm/dL Hct 39.3 (34.0-46.0) % Plt Count 280 (150-450) k/uL Comprehensive Metabolic Panel 05/19/19 Range/Units 14:26 Sodium 134 L (137-145) mmol/L Potassium 3.8 (3.5-5.1) mmol/L Chloride 101 (98-107) mmol/L Carbon Dioxide 28 (22-30) mmol/L BUN 17 (7-17) mg/dL Creatinine 0.56 (0.52-1.04) mg/dL Glucose 94 (74-99) mg/dL Calcium 9.1 (8.4-10.2) mg/dL AST 15 (14-36) U/L ALT 8 (4-34) U/L Alkaline Phosphatase 82 (38-126) U/L Total Protein 6.3 (6.3-8.2) g/dL Albumin 3.9 (3.5-5.0) g/dL Current Medications Generic Name Dose Route Start Last Admin Trade Name Freq PRN Reason Stop Dose Admin Hydrocodone Bitart/Acetaminophen 1 each 05/20/19 00:00 05/20/19 07:44 [place] 10 PO 1 each Q8HR MATT Administration Aspirin 81 mg 05/20/19 09:00 05/20/19 07:46 Aspirin PO Not Given DAILY [facility] Atorvastatin Calcium 10 mg 05/20/19 13:00 Lipitor PO DAILY@1300 MATT Baclofen 10 mg 05/19/19 21:00 05/19/19 20:12 Lioresal PO 10 mg HS MATT Administration Dicyclomine HCl 10 mg 05/19/19 22:00 05/20/19 07:44 Bentyl PO 10 mg TID [facility] Administration Escitalopram Oxalate 20 mg 05/20/19 13:00 05/20/19 07:45 Lexapro PO 20 mg DAILY@1300 [facility] Administration Famotidine 40 mg 05/19/19 21:00 05/20/19 07:45 Pepcid PO 40 mg BID [facility] Administration Gabapentin 800 mg 05/19/19 22:00 05/20/19 07:45 Neurontin PO 800 mg TID [facility] Administration Ibuprofen 800 mg 05/19/19 21:00 05/20/19 07:45 Motrin PO 800 mg BID [facility] Administration Lidocaine 1 applic 05/19/19 19:08 Xylocaine 5% Oint TOPICAL Q4H PRN Pain Metoclopramide HCl 10 mg 05/19/19 19:08 Reglan PO AC-TID PRN Nausea Morphine Sulfate 60 mg 05/19/19 21:00 05/20/19 07:45 Ms Contin PO 60 mg Q12HR [facility] Administration Nicotine 1 patch 05/19/19 19:15 05/20/19 07:47 Habitrol 21mg/24hr Patch TRANSDERM 1 patch DAILY [facility] Administration Nitroglycerin 0.4 mg 05/19/19 15:52 Nitrostat SUBLINGUAL Q5M PRN Chest Pain Nitroglycerin 1 inch 05/19/19 18:00 05/20/19 07:47 Nitro-Bid Oint TOPICAL Not Given Q6HR [facility] Non-Formulary Medication 290 mcg 05/20/19 09:00 05/20/19 07:46 Linaclotide [Linzess] PO Not Given DAILY [facility] Pantoprazole Sodium 40 mg 05/20/19 07:30 05/20/19 07:44 Protonix PO 40 mg AC-BRKFST [facility] Administration Potassium Chloride 20 meq 05/19/19 21:00 05/20/19 07:46 K-Dur 20 PO 20 meq BID [facility] Administration Trazodone HCl 150 mg 05/19/19 21:00 05/19/19 20:10 Desyrel PO 150 mg HS [facility] Administration Intake and Output 05/19/19 05/20/19 05/20/19 22:59 06:59 14:59 Intake Total 240 Balance 240 Intake: Oral 240 Other: Voiding Method Toilet Toilet Toilet # Voids 4 Weight 59.2 kg 05/19/19 14:26 05/19/19 14:26
--- NOTE | 2019-05-20 11:14 | P.HPIM ---
History of Present Illness H&P Date: 05/20/19 This is a 58-year-old female patient who presented to the ER with complaints of chest pain. Patient reports she's been having intermittent chest pain over the past few weeks and went to her PCP who directed her to come to ER for further evaluation. Patient reports that she recently had a compound back fracture from an accident 3 weeks ago in which she isn't and neck brace. Additional medical history includes nicotine dependence, COPD, hyper lipidemia, pulmonary embolism in her teenage years, chronic pain, seizures and CVA. Troponins negative 3. Chest x-ray completed showing no acute cardiopulmonary process. EKG completed showing normal sinus rhythm with sinus arrhythmia. Cardiology services have been consulted. At this time patient denies chest pain or shortness of breath. Patient denies nausea vomiting or diarrhea. Patient denies any urinary burning or frequency Review of Systems please refer to HPI otherwise unremarkable Past Medical History Past Medical History: COPD, CVA/TIA, GERD/Reflux, Hyperlipidemia, Hypertension, Osteoarthritis (OA), Pneumonia, Pulmonary Embolus (PE), Seizure Disorder, Sleep Apnea/CPAP/BIPAP Additional Past Medical History / Comment(s): Chronic pain syndrome, opiate dependence. ONLY USES CPAP SOMETIMES, hiatal hernia, migraines,bronchitis,sinus problems, endometreosis,stress incont of urine,constipation. LAST SEIZURE WAS A CHILD. History of Any Multi-Drug Resistant Organisms: MRSA Date of last positivie culture/infection: 2010 MDRO Source:: LEFT LEG Past Surgical History: Adenoidectomy, Back Surgery, Cholecystectomy, Orthopedic Surgery, Tonsillectomy Additional Past Surgical History / Comment(s): Lung surgery-to removed blood clot. BILAT KNEE scopes BILAT TKA AND ADRIA. RT LEG TUMOR REMOVALed(benign). Back has rika/screws. Lt shoulder replaced. Rt shoulder has pin. PAIN CLINIC PROCEDURES. LAPROSCOPY,GANGLION CYST REMOVED HERMINIA WRISTS. LT CTR, BUNIONECTOMY. EGD/COLONOSCOPY. CORTISONE SHOT 09/11/16 Past Anesthesia/Blood Transfusion Reactions: Motion Sickness, Postoperative Nausea & Vomiting (PONV) Additional Past Anesthesia/Blood Transfusion Reaction / Comment(s): CLAUSTROPHOBIA Past Psychological History: Anxiety, Depression Smoking Status: Current every day smoker Past Alcohol Use History: None Reported Additional Past Alcohol Use History / Comment(s): Started smoking at age 12 or 13, smokes 1.5 ppd. Past Drug Use History: None Reported - Past Family History Father Family Medical History: Cancer Additional Family Medical History / Comment(s): bowel cancer Mother Additional Family Medical History / Comment(s): crohns Sister(s) Family Medical History: Cancer Medications and Allergies Home Medications Medication Instructions Recorded Confirmed Type Escitalopram [Lexapro] 20 mg PO DAILY@1300 08/18/13 05/19/19 History Gabapentin [Neurontin] 800 mg PO TID 08/18/13 05/19/19 History HYDROcodone/APAP 10-325MG [[place] 1 tab PO Q8H 08/18/13 05/19/19 History 10-325] Potassium Chloride 20 meq PO BID 08/18/13 05/19/19 History Pantoprazole Sodium [Protonix] 40 mg PO DAILY 12/31/13 05/19/19 History Simvastatin [Zocor] 20 mg PO DAILY@1300 12/31/13 05/19/19 History Linaclotide [Linzess] 290 mcg PO DAILY 05/21/15 05/19/19 History Morphine Sulfate ER [Ms Contin 60 mg PO Q12HR 11/04/15 05/19/19 History 60Mg] Ranitidine HCl [Zantac] 300 mg PO TID 11/04/15 05/19/19 History Ibuprofen [Motrin] 800 mg PO BID 09/13/16 05/19/19 History Lidocaine 5% Oint [Xylocaine 5% 1 applic TOPICAL Q4H PRN 09/13/16 05/19/19 History Oint] traZODone HCL 450 mg PO HS 06/11/18 05/19/19 History Baclofen 10 mg PO HS 05/19/19 05/19/19 History Dicyclomine [Bentyl] 10 mg PO TID 05/19/19 05/19/19 History Metoclopramide HCl [Reglan] 10 mg PO AC-TID PRN 05/19/19 05/19/19 History Allergies Allergy/AdvReac Type Severity Reaction Status Date / Time celecoxib [From Celebrex] Allergy Swelling Verified 05/19/19 15:27 Iodinated Contrast Media Allergy Dyspnea Verified 05/19/19 15:27 [Iodinated Contrast Media - IV Dye] Penicillins Allergy Rash/Hives Verified 05/19/19 15:27 rofecoxib [From Vioxx] Allergy Swelling Verified 05/19/19 15:27 sumatriptan [From Imitrex] AdvReac Chest Pain Verified 05/19/19 15:27 sumatriptan succinate AdvReac Chest Pain Verified 05/19/19 15:27 [From Imitrex] tramadol HCl [From Ultram] AdvReac Nausea & Verified 05/19/19 15:27 Vomiting PAPER TAPE Allergy Itching Uncoded 05/19/19 14:12 Physical Exam Vitals: Vital Signs Temp Pulse Pulse Pulse Resp BP BP 05/20/19 08:00 18 05/20/19 07:00 97.3 F L 52 L 18 104/68 05/20/19 04:00 97.4 F L 70 18 114/70 05/20/19 00:00 71 18 116/70 05/19/19 19:28 97.7 F 65 18 115/72 05/19/19 17:47 97.5 F L 70 18 131/79 05/19/19 17:00 98.0 F 82 18 115/75 05/19/19 15:52 80 18 102/74 05/19/19 14:09 97.4 F L 87 20 122/82 Pulse Ox 05/20/19 08:00 05/20/19 07:00 93 L 05/20/19 04:00 95 05/20/19 00:00 96 05/19/19 19:28 96 05/19/19 17:47 99 05/19/19 17:00 96 05/19/19 15:52 96 05/19/19 14:09 96 Intake and Output 05/19/19 05/20/19 05/20/19 22:59 06:59 14:59 Intake Total 240 Balance 240 Intake: Oral 240 Other: Voiding Method Toilet Toilet Toilet # Voids 4 Weight 59.2 kg Head normocephalic Neck supple Lungs clear to auscultation bilaterally no wheezing or crackles Heart regular rate and rhythm S1-S2, no rub or gallop Abdomen is soft nontender nondistended positive bowel sounds no hepatosplenomegaly Extremities no edema Neuro alert and orientated to 3 Results CBC & Chem 7: 05/19/19 14:26 05/19/19 14:26 Labs: Abnormal Lab Results - Last 24 Hours (Table) 05/19/19 05/20/19 Range/Units 14:26 02:35 Sodium 134 L (137-145) mmol/L HDL Cholesterol 72 H (40-60) mg/dL Thrombosis Risk Factor Assmnt - Choose All That Apply Each Factor Represents 1 point: Abnormal pulmonary function (COPD), Age 41-60 years Thrombosis Risk Factor Assessment Total Risk Factor Score: 2 Thrombosis Risk Factor Assessment Level: Low Risk Assessment and Plan Assessment: 1. Chest pain. Chest x-ray negative for acute pulmonary process. Troponins negative 3. Per cardiology and acute coronary event has been ruled out pain is atypical and related to musculoskeletal injury recommending aggressive physical therapy and back strengthening exercises. Patient follow-up outpatient with Dr. Dailey in 2 weeks for outpatient stress test. 2. Chronic neck and back pain related to compound fracture back. Home pain medications resumed 3. Hyperlipidemia. Patient maintained on statin 4. History of COPD no exacerbation at this time 5. Chronic nicotine dependence. Patient educated greater than 3 minutes on smoking cessation nicotine patch ordered 6. History of pulmonary embolism. Patient reports that this was when she was 18 no further treatment 7. History of essential hypertension. Home meds resumed 8. History of CVA Time with Patient: Greater than 30 (Greater than 60% of the total time spent in counseling and coordination of care. I performed an examination of the patient and discussed their management with the Nurse Practitioner. I have reviewed the Nurse Practitioner's notes and agree with the documented findings and plan of care)
[2019-05-20 11:22] VITALS: BP 109/73; PULSE 82; TEMP 97.5
--- NOTE | 2019-05-20 12:08 | P.DS ---
Providers Date of admission: 05/19/19 15:53 Expected date of discharge: 05/20/19 Attending physician: Alon Esteves Consults: 05/19/19 15:53 Consult Physician Urgent Consulting Provider: [facility] Consult Reason/Comments: Unstable angina Do you want consulting provider notified?: Yes Primary care physician: Alon Esteves [facility] Course: Discharge diagnosis 1. Chest pain. Chest x-ray negative for acute pulmonary process. Troponins negative 3. Per cardiology and acute coronary event has been ruled out pain is atypical and related to musculoskeletal injury recommending aggressive physical therapy and back strengthening exercises. Patient to follow-up outpatient with Dr. Dailey in 2 weeks for outpatient stress test. 2. Chronic neck and back pain related to compound fracture back. Home pain medications resumed 3. Hyperlipidemia. Patient maintained on statin 4. History of COPD no exacerbation at this time 5. Chronic nicotine dependence. Patient educated greater than 3 minutes on smoking cessation nicotine patch ordered 6. History of pulmonary embolism. Patient reports that this was when she was 18 no further treatment 7. History of essential hypertension. Home meds resumed 8. History of CVA Hospital course This is a 58-year-old female patient who presented to the ER with complaints of chest pain. Patient reports she's been having intermittent chest pain over the past few weeks and went to her PCP who directed her to come to ER for further evaluation. Patient reports that she recently had a compound back fracture from an accident 3 weeks ago in which she isn't and neck brace. Additional medical history includes nicotine dependence, COPD, hyper lipidemia, pulmonary embolism in her teenage years, chronic pain, seizures and CVA. Troponins negative 3. Chest x-ray completed showing no acute cardiopulmonary process. EKG completed showing normal sinus rhythm with sinus arrhythmia. Cardiology services have been consulted. At this time patient denies chest pain or shortness of breath. Patient denies nausea vomiting or diarrhea. Patient denies any urinary burning or frequency On 05/20/2019 patient was evaluated by cardiology services. Per cardiology services acute coronary event has been ruled out pain is atypical and related to musculoskeletal injury recommending aggressive physical therapy. Patient to follow-up outpatient with Dr. Dailey in 2 weeks for outpatient stress test no further workup inpatient. Patient denies chest pain or shortness of breath. Patient denies nausea vomiting or diarrhea. Patient denies urinary burning or frequency I performed an examination of the patient and discussed their management with the Nurse Practitioner. I have reviewed the Nurse Practitioner's notes and agree with the documented findings and plan of care Patient Condition at Discharge: Stable Plan - Discharge Summary Discharge Rx Participant: No New Discharge Prescriptions: Continue HYDROcodone/APAP 10-325MG [[place] 10-325] 1 tab PO Q8H Gabapentin [Neurontin] 800 mg PO TID Escitalopram [Lexapro] 20 mg PO DAILY@1300 Potassium Chloride 20 meq PO BID Simvastatin [Zocor] 20 mg PO DAILY@1300 Pantoprazole Sodium [Protonix] 40 mg PO DAILY Linaclotide [Linzess] 290 mcg PO DAILY Morphine Sulfate ER [Ms Contin] 60 mg PO Q12HR Ranitidine HCl [Zantac] 300 mg PO TID Lidocaine 5% Oint [Xylocaine 5% Oint] 1 applic TOPICAL Q4H PRN PRN Reason: Pain Ibuprofen [Motrin] 800 mg PO BID traZODone HCL 450 mg PO HS Baclofen 10 mg PO HS Metoclopramide HCl [Reglan] 10 mg PO AC-TID PRN PRN Reason: Nausea Dicyclomine [Bentyl] 10 mg PO TID Discharge Medication List Escitalopram [Lexapro] 20 mg PO DAILY@1300 08/18/13 [History] Gabapentin [Neurontin] 800 mg PO TID 08/18/13 [History] HYDROcodone/APAP 10-325MG [[place] 10-325] 1 tab PO Q8H 08/18/13 [History] Potassium Chloride 20 meq PO BID 08/18/13 [History] Pantoprazole Sodium [Protonix] 40 mg PO DAILY 12/31/13 [History] Simvastatin [Zocor] 20 mg PO DAILY@1300 12/31/13 [History] Linaclotide [Linzess] 290 mcg PO DAILY 05/21/15 [History] Morphine Sulfate ER [Ms Contin] 60 mg PO Q12HR 11/04/15 [History] Ranitidine HCl [Zantac] 300 mg PO TID 11/04/15 [History] Ibuprofen [Motrin] 800 mg PO BID 09/13/16 [History] Lidocaine 5% Oint [Xylocaine 5% Oint] 1 applic TOPICAL Q4H PRN 09/13/16 [History] traZODone HCL 450 mg PO HS 06/11/18 [History] Baclofen 10 mg PO HS 05/19/19 [History] Dicyclomine [Bentyl] 10 mg PO TID 05/19/19 [History] Metoclopramide HCl [Reglan] 10 mg PO AC-TID PRN 05/19/19 [History] Follow up Appointment(s)/Referral(s): Dagoberto Dailey MD [STAFF PHYSICIAN] - 06/09/19 9:45 am Alon Esteves MD [Primary Care Provider] - 1-2 days
[2019-05-20] MEDS ORDERED: ATORVASTATIN 10 MG TAB PO SCH (13:00)
[2019-05-20] MEDS ORDERED: ESCITALOPRAM 20 MG TAB PO SCH (13:00)
== END 2019-05-20 12:16 | disposition home or self-care (01) ==
LOC: EC 14:06 → 1SOBS 15:53
PROVIDERS: ADMIT Internal Medicine; ATTEND Internal Medicine
DX: R07.89 Other chest pain (principal); E78.5 Hyperlipidemia, unspecified; E78.00 Pure hypercholesterolemia, unspecified; F32.9 Major depressive disorder, single episode, unspecified; F40.240 Claustrophobia; G89.4 Chronic pain syndrome; I10 Essential (primary) hypertension; J44.9 Chronic obstructive pulmonary disease, unspecified; S22.000D Wedge compression fracture of unspecified thoracic vertebra, subsequent encounter for fracture with routine healing; F11.20 Opioid dependence, uncomplicated; G43.909 Migraine, unspecified, not intractable, without status migrainosus; F17.210 Nicotine dependence, cigarettes, uncomplicated; K21.9 Gastro-esophageal reflux disease without esophagitis; G47.30 Sleep apnea, unspecified; F41.9 Anxiety disorder, unspecified; M19.90 Unspecified osteoarthritis, unspecified site; K59.00 Constipation, unspecified; Z71.6 Tobacco abuse counseling; Z86.14 Personal history of Methicillin resistant Staphylococcus aureus infection; Z86.711 Personal history of pulmonary embolism; Z86.73 Personal history of transient ischemic attack (TIA), and cerebral infarction without residual deficits; Z87.09 Personal history of other diseases of the respiratory system; Z87.01 Personal history of pneumonia (recurrent); Z86.69 Personal history of other diseases of the nervous system and sense organs; Z96.653 Presence of artificial knee joint, bilateral; Z96.612 Presence of left artificial shoulder joint; Z90.49 Acquired absence of other specified parts of digestive tract; Z96.649 Presence of unspecified artificial hip joint; W01.0XXD Fall on same level from slipping, tripping and stumbling without subsequent striking against object, subsequent encounter; Z83.79 Family history of other diseases of the digestive system; Z80.0 Family history of malignant neoplasm of digestive organs; Z88.0 Allergy status to penicillin; Z99.89 Dependence on other enabling machines and devices; Z91.048 Other nonmedicinal substance allergy status; Z91.81 History of falling; Z79.1 Long term (current) use of non-steroidal anti-inflammatories (NSAID); Z79.899 Other long term (current) drug therapy; Z88.8 Allergy status to other drugs, medicaments and biological substances; Z91.041 Radiographic dye allergy status; Z88.6 Allergy status to analgesic agent
CPT/HCPCS: 93005 ×2; 99291; 36415; 80061; 80053; 83735; 84484 ×2; 85025; 85610; 85730; 71046; G0378 ×2; S4990 ×2

== ENCOUNTER 2020-01-03 14:06 | Inpatient (IN) | payer MEDICARE, OTHER ==
--- NOTE | 2020-01-03 14:17 | ED ---
Chest Pain HPI - General Chief Complaint: Chest Pain Stated Complaint: CHEST PAIN Time Seen by Provider: 01/03/20 14:15 Source: EMS, RN notes reviewed, old records reviewed Mode of arrival: EMS Limitations: no limitations - History of Present Illness Initial Comments: This is a 59-year-old female DF for evaluation known history of COPD smoking, patient having persistent shortness of breath cough congestion and pleuritic chest pain. No travel history or sick contacts. No fevers MD Complaint: chest pain, other (sob, cough) Onset: during rest, during exertion Pain Location: substernal Pain Radiation: none Severity: moderate Severity scale (1-10): 4 Quality: tightness, heaviness Consistency: constant Improves With: nothing Worsens With: exertion Anginal Symptoms: diaphoresis, dyspnea Other Symptoms: cough, fever, palpitations Treatments Prior to Arrival: none - Related Data Home Medications Medication Instructions Recorded Confirmed Escitalopram [Lexapro] 20 mg PO DAILY@1300 08/18/13 05/19/19 Gabapentin [Neurontin] 800 mg PO TID 08/18/13 05/19/19 HYDROcodone/APAP 10-325MG [[place] 1 tab PO Q8H 08/18/13 05/19/19 10-325] Potassium Chloride 20 meq PO BID 08/18/13 05/19/19 Pantoprazole Sodium [Protonix] 40 mg PO DAILY 12/31/13 05/19/19 Simvastatin [Zocor] 20 mg PO DAILY@1300 12/31/13 05/19/19 Linaclotide [Linzess] 290 mcg PO DAILY 05/21/15 05/19/19 Morphine Sulfate ER [Ms Contin] 60 mg PO Q12HR 11/04/15 05/19/19 Ranitidine HCl [Zantac] 300 mg PO TID 11/04/15 05/19/19 Ibuprofen [Motrin] 800 mg PO BID 09/13/16 05/19/19 Lidocaine 5% Oint [Xylocaine 5% 1 applic TOPICAL Q4H PRN 09/13/16 05/19/19 Oint] traZODone HCL 450 mg PO HS 06/11/18 05/19/19 Baclofen 10 mg PO HS 05/19/19 05/19/19 Dicyclomine [Bentyl] 10 mg PO TID 05/19/19 05/19/19 Metoclopramide HCl [Reglan] 10 mg PO AC-TID PRN 05/19/19 05/19/19 Allergies Allergy/AdvReac Type Severity Reaction Status Date / Time celecoxib [From Celebrex] Allergy Swelling Verified 05/19/19 15:27 Iodinated Contrast Media Allergy Dyspnea Verified 05/19/19 15:27 [Iodinated Contrast Media - IV Dye] Penicillins Allergy Rash/Hives Verified 05/19/19 15:27 rofecoxib [From Vioxx] Allergy Swelling Verified 05/19/19 15:27 sumatriptan [From Imitrex] AdvReac Chest Pain Verified 05/19/19 15:27 sumatriptan succinate AdvReac Chest Pain Verified 05/19/19 15:27 [From Imitrex] tramadol HCl [From Ultram] AdvReac Nausea & Verified 05/19/19 15:27 Vomiting PAPER TAPE Allergy Itching Uncoded 05/19/19 14:12 Review of Systems ROS Statement: Those systems with pertinent positive or pertinent negative responses have been documented in the HPI. ROS Other: All systems not noted in ROS Statement are negative. EKG Findings - EKG Comments: EKG Findings:: EKG is sinus rhythm 81 NH 160 QRS 86 QTc 441 Past Medical History Past Medical History: COPD, CVA/TIA, GERD/Reflux, Hyperlipidemia, Hypertension, Osteoarthritis (OA), Pneumonia, Pulmonary Embolus (PE), Seizure Disorder, Sleep Apnea/CPAP/BIPAP Additional Past Medical History / Comment(s): Chronic pain syndrome, opiate dependence. ONLY USES CPAP SOMETIMES, hiatal hernia, migraines,bronchitis,sinus problems, endometreosis,stress incont of urine,constipation. LAST SEIZURE WAS A CHILD. History of Any Multi-Drug Resistant Organisms: MRSA Date of last positivie culture/infection: 2010 MDRO Source:: LEFT LEG Past Surgical History: Adenoidectomy, Back Surgery, Cholecystectomy, Orthopedic Surgery, Tonsillectomy Additional Past Surgical History / Comment(s): Lung surgery-to removed blood clot. BILAT KNEE scopes BILAT TKA AND ADRIA. RT LEG TUMOR REMOVALed(benign). Back has rika/screws. Lt shoulder replaced. Rt shoulder has pin. PAIN CLINIC PROCEDURES. LAPROSCOPY,GANGLION CYST REMOVED HERMINIA WRISTS. LT CTR, BUNIONECTOMY. EGD/COLONOSCOPY. CORTISONE SHOT 09/11/16 Past Anesthesia/Blood Transfusion Reactions: Motion Sickness, Postoperative Nausea & Vomiting (PONV) Additional Past Anesthesia/Blood Transfusion Reaction / Comment(s): CLAUSTROPHOBIA Past Psychological History: Anxiety, Depression Smoking Status: Current every day smoker Past Alcohol Use History: None Reported Past Drug Use History: None Reported - Past Family History Father Family Medical History: Cancer Additional Family Medical History / Comment(s): bowel cancer Mother Additional Family Medical History / Comment(s): crohns Sister(s) Family Medical History: Cancer General Exam Limitations: no limitations General appearance: alert, in no apparent distress, anxious Head exam: Present: atraumatic, normocephalic, normal inspection Eye exam: Present: normal appearance, PERRL, EOMI. Absent: scleral icterus, conjunctival injection, periorbital swelling ENT exam: Present: normal exam, mucous membranes moist Neck exam: Present: normal inspection. Absent: tenderness, meningismus, lymphadenopathy Respiratory exam: Present: wheezes, accessory muscle use, decreased breath sounds, prolonged expiratory. Absent: respiratory distress, rales, rhonchi, stridor Cardiovascular Exam: Present: regular rate, normal rhythm, normal heart sounds. Absent: systolic murmur, diastolic murmur, rubs, gallop, clicks GI/Abdominal exam: Present: soft, normal bowel sounds. Absent: distended, tenderness, guarding, rebound, rigid Extremities exam: Present: normal inspection, full ROM, normal capillary refill. Absent: tenderness, pedal edema, joint swelling, calf tenderness Back exam: Present: normal inspection Neurological exam: Present: alert, oriented X3, CN II-XII intact Psychiatric exam: Present: normal affect, normal mood Skin exam: Present: warm, dry, intact, normal color. Absent: rash Course Vital Signs 01/03/20 01/03/20 01/03/20 14:13 14:15 14:57 Temperature 98.2 F Pulse Rate 85 80 Respiratory 16 16 Rate Blood Pressure 108/72 O2 Sat by Pulse 99 96 Oximetry 01/03/20 15:12 Temperature Pulse Rate 78 Respiratory Rate Blood Pressure O2 Sat by Pulse Oximetry - Reevaluation(s) Reevaluation #1: 01/03/20 15:29 Medical record is reviewed Reevaluation #2: 01/03/20 15:29 A she has mild improvement in symptoms here in the ER was still with chest pain shortness of breath - Consultations Consultation #1: Spoke with Dr. Rodas who agrees to admit this patient Chest Pain MDM - MDM 59 female DF for evaluation. Patient Dese for evaluation regards to chest pain and shortness of breath. COPD exacerbation chest pain observation Disposition Clinical Impression: COPD (chronic obstructive pulmonary disease) with chronic bronchitis, Chest pain, Anterior pleuritic pain Disposition: ADMITTED IP TO THIS HOSP Condition: Good Is patient prescribed a controlled substance at d/c from ED?: No Referrals: Alon Esteves MD [Primary Care Provider] - 1-2 days
[2020-01-03] MEDS ORDERED: methylPREDNISolone SOD SUCCI 125 MG/2 ML VIAL IV STA (14:22)
[2020-01-03] MEDS ORDERED: IPRATROPIUM-ALBUTEROL 3 ML NEB INHALATION STA ×2 (14:22→15:26)
[2020-01-03] MEDS ORDERED: KETOROLAC 15 MG/ML 1 ML VIAL IVP STA (14:22)
[2020-01-03 14:29] LABS: Basophils % (A) 0 %; Eosinophils # (A) 0.2 k/uL (0-0.7); Eosinophils % (A) 1 %; HCT 40.2 % (34.0-46.0); HGB 13.5 gm/dL (11.4-16.0); Lymphocytes # (A) 0.4 k/uL (1.0-4.8); Lymphocytes % (A) 3 %; MCH 34.7 pg (25.0-35.0); MCHC 33.6 g/dL (31.0-37.0); MCV 103.4 fL (80.0-100.0); Macrocytosis Slight; Mean Platelet Volume 6.9; Monocytes # (A) 0.5 k/uL (0-1.0); Monocytes % (A) 3 %; Neutrophils % (A) 92 %; Platelet Count 226 k/uL (150-450); RBC 3.88 m/uL (3.80-5.40); RDW 13.2 % (11.5-15.5); WBC 14.1 k/uL (3.8-10.6)
[2020-01-03 14:38] LABS: Partial Thromboplastin Time 29.6 sec (22.0-30.0); Prothrombin Time 10.7 sec (9.0-12.0)
[2020-01-03 14:57] LABS: ALT 9 U/L (4-34); AST 18 U/L (14-36); African American GFR (CKD) >90 (>60 ml/min/1.73 sqM); Alkaline Phosphatase 100 U/L (38-126); Anion Gap 8 mmol/L; Blood Urea Nitrogen 15 mg/dL (7-17); Calcium 8.8 mg/dL (8.4-10.2); Carbon Dioxide 26 mmol/L (22-30); Chloride 99 mmol/L (98-107); Glucose 152 mg/dL (74-99); Magnesium 1.7 mg/dL (1.6-2.3); Non-African American GFR(CKD) >90 (>60 ml/min/1.73 sqM); Potassium 3.6 mmol/L (3.5-5.1); Sodium 133 mmol/L (137-145); Total Bilirubin 0.7 mg/dL (0.2-1.3); Total Protein 6.6 g/dL (6.3-8.2)
--- NOTE | 2020-01-03 15:15 | XR ---
EXAMINATION TYPE: XR chest 2V DATE OF EXAM: 01/03/2020 COMPARISON: 05/19/2019 HISTORY: Chest pain TECHNIQUE: FINDINGS: There is no heart failure nor confluent pneumonic infiltrate. There is poor inspiration. Th ere is some coarsening of the interstitial markings at the lung bases. There is left shoulder prosthe sis. There is thoracic kyphotic deformity with 80% anterior wedging of T8 vertebra. There is 25% wedg ing of T7. IMPRESSION: Inspiration decreased compared to old exam. No heart failure.
[2020-01-03] MEDS ORDERED: NITROGLYCERIN SL TABS 0.4 MG TAB SUBLINGUAL PRN (15:26)
[2020-01-03] MEDS ORDERED: ONDANSETRON 4 MG/2 ML VIAL IVP STA (15:37)
[2020-01-03] MEDS: ALBUTEROL NEBULIZED 2.5 MG/3 ML INHALATION SCH ×2 (15:57→19:51)
[2020-01-03] MEDS: methylPREDNISolone SOD SUCCI 125 MG/2 ML VIAL IV SCH ×2 (17:19→23:07)
[2020-01-03] MEDS: NICOTINE 21MG/24HR PATCH TRANSDERM SCH (20:56)
[2020-01-03] MEDS ORDERED: BACLOFEN 10 MG TAB PO PRN (21:08)
[2020-01-03] MEDS ORDERED: guaiFENesin SYRUP 100MG/5ML 200 MG/10 ML CUP PO PRN (21:08)
[2020-01-03] MEDS ORDERED: ACETAMINOPHEN TAB 325 MG TAB PO PRN (21:08)
[2020-01-03] MEDS ORDERED: LIDOCAINE 2% GEL 30 ML TUBE TOPICAL PRN (21:08)
[2020-01-03] MEDS ORDERED: IPRATROPIUM-ALBUTEROL 3 ML NEB INHALATION PRN (21:12)
[2020-01-03] MEDS: HYDROcodone/APAP 10-325MG 1 EACH TAB PO SCH (22:21)
[2020-01-03] MEDS: GABAPENTIN 400 MG CAP PO SCH (22:21)
[2020-01-03] MEDS: DICYCLOMINE 10 MG CAP PO SCH (22:22)
[2020-01-03] MEDS: MORPHINE SULFATE ER 60 MG TABLET PO SCH (22:56)
[2020-01-04] MEDS: methylPREDNISolone SOD SUCCI 125 MG/2 ML VIAL IV SCH ×4 (06:55→23:56)
[2020-01-04] MEDS: ALBUTEROL NEBULIZED 2.5 MG/3 ML INHALATION SCH ×4 (07:51→19:53)
[2020-01-04 07:56] LABS: Basophils % (A) 0 %; Eosinophils # (A) 0.1 k/uL (0-0.7); Eosinophils % (A) 1 %; HCT 40.8 % (34.0-46.0); HGB 13.2 gm/dL (11.4-16.0); Lymphocytes # (A) 0.7 k/uL (1.0-4.8); Lymphocytes % (A) 4 %; MCHC 32.3 g/dL (31.0-37.0); MCV 105.5 fL (80.0-100.0); Macrocytosis Slight; Mean Platelet Volume 7.3; Monocytes # (A) 0.3 k/uL (0-1.0); Monocytes % (A) 2 %; Neutrophils # (A) 16.1 k/uL (1.3-7.7); Neutrophils % (A) 94 %; Platelet Count 272 k/uL (150-450); RBC 3.87 m/uL (3.80-5.40); RDW 13.2 % (11.5-15.5); WBC 17.3 k/uL (3.8-10.6)
[2020-01-04] MEDS: HYDROcodone/APAP 10-325MG 1 EACH TAB PO SCH ×3 (08:10→21:30)
[2020-01-04] MEDS: GABAPENTIN 400 MG CAP PO SCH ×3 (08:10→21:30)
[2020-01-04] MEDS: PANTOPRAZOLE 40 MG TABLET PO SCH (08:10)
[2020-01-04] MEDS: ATORVASTATIN 10 MG TAB PO SCH (08:10)
[2020-01-04] MEDS: MORPHINE SULFATE ER 60 MG TABLET PO SCH ×2 (08:11→23:21)
[2020-01-04] MEDS: DICYCLOMINE 10 MG CAP PO SCH ×3 (08:11→21:30)
[2020-01-04] MEDS: ESCITALOPRAM 20 MG TAB PO SCH (08:11)
[2020-01-04 08:16] LABS: ALT 10 U/L (4-34); AST 15 U/L (14-36); African American GFR (CKD) >90 (>60 ml/min/1.73 sqM); Alkaline Phosphatase 99 U/L (38-126); Anion Gap 8 mmol/L; Blood Urea Nitrogen 32 mg/dL (7-17); Calcium 9.1 mg/dL (8.4-10.2); Carbon Dioxide 27 mmol/L (22-30); Chloride 99 mmol/L (98-107); Cholesterol 147 mg/dL (<200); Glucose 144 mg/dL (74-99); HDL Cholesterol 72 mg/dL (40-60); LDL Cholesterol,Calculated 60 mg/dL (0-99); Non-African American GFR(CKD) >90 (>60 ml/min/1.73 sqM); Potassium 3.9 mmol/L (3.5-5.1); Sodium 134 mmol/L (137-145); Total Bilirubin 0.5 mg/dL (0.2-1.3); Total Protein 6.7 g/dL (6.3-8.2); Triglycerides 77 mg/dL (<150)
--- NOTE | 2020-01-04 09:17 | P.HPIM ---
History of Present Illness H&P Date: 01/04/20 Melia Horan, is a 59-year-old female who presented to [facility] emergency room with a chief complaint of worsening shortness of breath patient was also complaining of episodes of chest pain she describes a pressure sensation in the middle of her chest radiating to the back, patient was also complaining of abdominal pain mostly in the epigastric area she was evaluated in the emergency room, her vital exam on presentation revealed a temperature of 98.2 pulse 85 respiration 16 blood pressure 108/72 pulse ox 99% on room air her white blood count was 14.1 hemoglobin 13.5 platelet count 226 sodium 133 potassium 3.6 creatinine 0.41 glucose 152 first troponin was less than 0.012 lipase was 10 first EKG revealed normal sinus rhythm with sinus arrhythmia normal EKG chest x-ray did not reveal any evidence of infiltrate or heart failure preliminary diagnosis was acute exacerbation of chronic obstructive pulmonary disease and chest pain patient was admitted to observation unit she was started on IV steroids and inhaled bronchodilators pulmonary consultation and cardiology consultation were requested serial troponin level were ordered. Patient has a known history of chronic obstructive pulmonary disease she has a prolonged history of smoking she does not have any previous history of coronary artery disease she has known history of hyperlipidemia, chronic back pain and osteoarthritis maintained on narcotics for pain management, history of depression, and history of gastroesophageal reflux disease. On review of systems patient is alert and oriented in no apparent distress she is complaining of shortness of breath with any activity she is complaining of occasional cough at this time she is chest pain-free there is no fever or chills no headache or dizziness no palpitation no nausea or vomiting no diarrhea no blood in the stools no burning with urination no frequency or urgency and no hematuria. Past Medical History Past Medical History: COPD, CVA/TIA, GERD/Reflux, Hyperlipidemia, Hypertension, Osteoarthritis (OA), Pneumonia, Pulmonary Embolus (PE), Seizure Disorder, Sleep Apnea/CPAP/BIPAP Additional Past Medical History / Comment(s): Chronic pain syndrome, opiate dependence. ONLY USES CPAP SOMETIMES, hiatal hernia, migraines,bronchitis,sinus problems, endometreosis,stress incont of urine,constipation. LAST SEIZURE WAS A CHILD. History of Any Multi-Drug Resistant Organisms: MRSA Date of last positivie culture/infection: 2010 MDRO Source:: LEFT LEG Past Surgical History: Adenoidectomy, Back Surgery, Cholecystectomy, Orthopedic Surgery, Tonsillectomy Additional Past Surgical History / Comment(s): Lung surgery-to removed blood clot. BILAT KNEE scopes BILAT TKA AND ADRIA. RT LEG TUMOR REMOVALed(benign). Back has rika/screws. Lt shoulder replaced. Rt shoulder has pin. PAIN CLINIC PROCEDURES. LAPROSCOPY,GANGLION CYST REMOVED HERMINIA WRISTS. LT CTR, BUNIONECTOMY. EGD/COLONOSCOPY. CORTISONE SHOT 09/11/16 Past Anesthesia/Blood Transfusion Reactions: Motion Sickness, Postoperative Nausea & Vomiting (PONV) Additional Past Anesthesia/Blood Transfusion Reaction / Comment(s): CLAUSTROPHOBIA Past Psychological History: Anxiety, Depression Smoking Status: Current every day smoker Past Alcohol Use History: None Reported Additional Past Alcohol Use History / Comment(s): Started smoking at age 12 or 13, smokes 1.5 ppd. Past Drug Use History: None Reported - Past Family History Father Family Medical History: Cancer Additional Family Medical History / Comment(s): bowel cancer Mother Additional Family Medical History / Comment(s): crohns Sister(s) Family Medical History: Cancer Medications and Allergies Home Medications Medication Instructions Recorded Confirmed Type Escitalopram [Lexapro] 20 mg PO DAILY 08/18/13 01/03/20 History Gabapentin [Neurontin] 800 mg PO TID 08/18/13 01/03/20 History HYDROcodone/APAP 10-325MG [[place] 1 tab PO TID 08/18/13 01/03/20 History 10-325] Pantoprazole Sodium [Protonix] 40 mg PO AC-BRKFST 12/31/13 01/03/20 History Simvastatin [Zocor] 20 mg PO DAILY 12/31/13 01/03/20 History Morphine Sulfate ER [Ms Contin] 60 mg PO Q12H 11/04/15 01/03/20 History Ibuprofen [Motrin] 800 mg PO BID PRN 09/13/16 01/03/20 History Baclofen 10 mg PO HS PRN 05/19/19 01/03/20 History Dicyclomine [Bentyl] 10 mg PO TID 05/19/19 01/03/20 History Metoclopramide HCl [Reglan] 10 mg PO AC-TID PRN 05/19/19 01/03/20 History Acetaminophen Tab [Tylenol] 650 mg PO Q6H PRN 01/03/20 01/03/20 History Lidocaine 2% Gel [Xylocaine Jelly 1 applic TOPICAL Q8H PRN 01/03/20 01/03/20 History 2%] guaiFENesin SYRUP 100MG/5ML 200 mg PO Q6H PRN 01/03/20 01/03/20 History [Robitussin] traZODone HCL 150 mg PO HS 01/03/20 01/03/20 History Allergies Allergy/AdvReac Type Severity Reaction Status Date / Time celecoxib [From Celebrex] Allergy Swelling Verified 01/03/20 16:36 Iodinated Contrast Media Allergy Dyspnea Verified 01/03/20 16:36 [Iodinated Contrast Media - IV Dye] Penicillins Allergy Rash/Hives Verified 01/03/20 16:36 rofecoxib [From Vioxx] Allergy Swelling Verified 01/03/20 16:36 sumatriptan [From Imitrex] AdvReac Chest Pain Verified 01/03/20 16:36 sumatriptan succinate AdvReac Chest Pain Verified 01/03/20 16:36 [From Imitrex] tramadol HCl [From Ultram] AdvReac Nausea & Verified 01/03/20 16:36 Vomiting PAPER TAPE Allergy Itching Uncoded 01/03/20 16:36 Physical Exam Vitals: Vital Signs Temp Pulse Pulse Resp BP BP Pulse Ox 01/04/20 08:01 72 01/04/20 07:51 72 01/04/20 07:24 98.0 F 71 16 109/61 92 L 01/04/20 03:00 97.6 F 72 17 108/73 98 01/03/20 21:00 97.8 F 76 17 99/64 95 01/03/20 20:01 72 01/03/20 19:51 72 01/03/20 16:53 16 01/03/20 16:50 97.4 F L 69 16 91/55 94 L 01/03/20 16:02 78 01/03/20 15:55 86 16 123/86 95 01/03/20 15:12 78 01/03/20 14:57 80 01/03/20 14:15 16 96 01/03/20 14:13 98.2 F 85 16 108/72 99 Intake and Output 01/03/20 01/04/20 01/04/20 22:59 06:59 14:59 Intake Total 1200 Balance 1200 Intake: Oral 1200 Other: Voiding Method Toilet Toilet # Voids 1 2 Weight 56.699 kg In general patient is alert and oriented 3 in no apparent distress HEENT head normocephalic and atraumatic Neck is supple no JVD no goiter no lymphadenopathy no carotid bruit Chest exam reveals a few scattered rhonchi no wheezing Cardiac exam reveals regular heart sounds S1 and S2 no gallops no murmurs Abdomen is soft nontender no organomegaly with normal bowel sounds Extremity exam reveals no edema no cyanosis or clubbing Neurological examination reveals no gross focal deficit Results CBC & Chem 7: 01/04/20 07:33 01/04/20 07:33 Labs: Abnormal Lab Results - Last 24 Hours (Table) 01/03/20 01/03/20 01/04/20 Range/Units 14:19 14:19 07:33 WBC 14.1 H (3.8-10.6) k/uL MCV 103.4 H (80.0-100.0) fL Neutrophils # 13.0 H (1.3-7.7) k/uL Lymphocytes # 0.4 L (1.0-4.8) k/uL Sodium 133 L 134 L (137-145) mmol/L BUN 32 H (7-17) mg/dL Creatinine 0.41 L (0.52-1.04) mg/dL Glucose 152 H 144 H (74-99) mg/dL HDL Cholesterol 72 H (40-60) mg/dL Lipase 10 L (23-300) U/L 01/04/20 Range/Units 07:33 WBC 17.3 H (3.8-10.6) k/uL MCV 105.5 H (80.0-100.0) fL Neutrophils # 16.1 H (1.3-7.7) k/uL Lymphocytes # 0.7 L (1.0-4.8) k/uL Sodium (137-145) mmol/L BUN (7-17) mg/dL Creatinine (0.52-1.04) mg/dL Glucose (74-99) mg/dL HDL Cholesterol (40-60) mg/dL Lipase (23-300) U/L Assessment and Plan Plan: 1. Acute exacerbation of chronic obstructive pulmonary disease patient started on IV Solu-Medrol and inhaled bronchodilators in the emergency room pulmonary consultation requested 2. Episode of chest pain serial EKG and cardiac enzymes ordered cardiology consultation requested 3. Underlying history of chronic back pain maintained on narcotics for pain management 4. Underlying history of tobacco abuse patient counseled in length in regard to smoking cessation 5. Underlying history of depression maintained on Lexapro 6. Underlying history of osteoarthritis 7. Underlying history of hyperlipidemia 8. Epigastric pain lipase is normal will check abdominal ultrasound continue with Protonix At this time patient is admitted to medical floor she was started on IV steroids and inhaled bronchodilators Check sputum culture, check chest x-ray PA and lateral Pulmonary consultation was requested in regards to COPD exacerbation and cardiology consultation was requested in that regard to chest pain Home medications reviewed and reordered For DVT prophylaxis we will use subcu Lovenox For GI prophylaxis continue Protonix Will follow during this admission
--- NOTE | 2020-01-04 10:10 | P.CRDCN ---
History of Present Illness Consult date: 01/04/20 Consult reason: chest pain Chief complaint: Chest pain, shortness of breath and cough History of present illness: 6 is a 59-year-old, somewhat emaciated, and unkempt female with history of hyperlipidemia, nicotine dependence, patient's smokes one package of cigarettes per day, history of COPD, chronic pain syndrome, TIA, sleep apnea, and history of opiate dependence. Patient presents to the hospital with sy mptoms of progressively worsening shortness of breath with associated cough, at times productive. She also states that she was running mild fevers at home. Patient also was experiencing chest pain, every time she coughs. Chest x-ray did not reveal any acute process. Her EKG on presentation here showed a normal sinus rhythm with no acute changes. Blood pressure 110/60 with a heart rate in the 70s, respirations 18, 92% on 3 L of oxygen. White blood cell count 14.1 on admission, hemoglobin 13.5, platelet count 226. This morning white blood cell count is 17.3, hemoglobin 13.2, platelet count 272. Sodium 133, potassium 3.6, BUN 15, creatinine 0.4. Magnesium 1.7 troponin 0.0123 cholesterol 138, triglycerides 82, LDL 50 and HDL 72. At the time of my examination this morning, patient continues to have a cough, he states the chest pain only occurs with coughing. Patient does state that she's lost approximately 20 pounds in weight recently, she does have a history of IBS and has not been eating much according to her. Past Medical History Past Medical History: COPD, CVA/TIA, GERD/Reflux, Hyperlipidemia, Hypertension, Osteoarthritis (OA), Pneumonia, Pulmonary Embolus (PE), Seizure Disorder, Sleep Apnea/CPAP/BIPAP Additional Past Medical History / Comment(s): Chronic pain syndrome, opiate dependence. ONLY USES CPAP SOMETIMES, hiatal hernia, migraines,bronchitis,sinus problems, endometreosis,stress incont of urine,constipation. LAST SEIZURE WAS A CHILD. History of Any Multi-Drug Resistant Organisms: MRSA Date of last positivie culture/infection: 2010 MDRO Source:: LEFT LEG Past Surgical History: Adenoidectomy, Back Surgery, Cholecystectomy, Orthopedic Surgery, Tonsillectomy Additional Past Surgical History / Comment(s): Lung surgery-to removed blood clot. BILAT KNEE scopes BILAT TKA AND ADRIA. RT LEG TUMOR REMOVALed(benign). Back has rika/screws. Lt shoulder replaced. Rt shoulder has pin. PAIN CLINIC PROCEDURES. LAPROSCOPY,GANGLION CYST REMOVED HERMINIA WRISTS. LT CTR, BUNIONECTOMY. EGD/COLONOSCOPY. CORTISONE SHOT 09/11/16 Past Anesthesia/Blood Transfusion Reactions: Motion Sickness, Postoperative Nausea & Vomiting (PONV) Additional Past Anesthesia/Blood Transfusion Reaction / Comment(s): CLAUSTROPHOBIA Past Psychological History: Anxiety, Depression Smoking Status: Current every day smoker Past Alcohol Use History: None Reported Additional Past Alcohol Use History / Comment(s): Started smoking at age 12 or 13, smokes 1.5 ppd. Past Drug Use History: None Reported - Past Family History Father Family Medical History: Cancer Additional Family Medical History / Comment(s): bowel cancer Mother Additional Family Medical History / Comment(s): crohns Sister(s) Family Medical History: Cancer Medications and Allergies Home Medications Medication Instructions Recorded Confirmed Type Escitalopram [Lexapro] 20 mg PO DAILY 08/18/13 01/03/20 History Gabapentin [Neurontin] 800 mg PO TID 08/18/13 01/03/20 History HYDROcodone/APAP 10-325MG [[place] 1 tab PO TID 08/18/13 01/03/20 History 10-325] Pantoprazole Sodium [Protonix] 40 mg PO AC-BRKFST 12/31/13 01/03/20 History Simvastatin [Zocor] 20 mg PO DAILY 12/31/13 01/03/20 History Morphine Sulfate ER [Ms Contin] 60 mg PO Q12H 11/04/15 01/03/20 History Ibuprofen [Motrin] 800 mg PO BID PRN 09/13/16 01/03/20 History Baclofen 10 mg PO HS PRN 05/19/19 01/03/20 History Dicyclomine [Bentyl] 10 mg PO TID 05/19/19 01/03/20 History Metoclopramide HCl [Reglan] 10 mg PO AC-TID PRN 05/19/19 01/03/20 History Acetaminophen Tab [Tylenol] 650 mg PO Q6H PRN 01/03/20 01/03/20 History Lidocaine 2% Gel [Xylocaine Jelly 1 applic TOPICAL Q8H PRN 01/03/20 01/03/20 History 2%] guaiFENesin SYRUP 100MG/5ML 200 mg PO Q6H PRN 01/03/20 01/03/20 History [Robitussin] traZODone HCL 150 mg PO HS 01/03/20 01/03/20 History Allergies Allergy/AdvReac Type Severity Reaction Status Date / Time celecoxib [From Celebrex] Allergy Swelling Verified 01/03/20 16:36 Iodinated Contrast Media Allergy Dyspnea Verified 01/03/20 16:36 [Iodinated Contrast Media - IV Dye] Penicillins Allergy Rash/Hives Verified 01/03/20 16:36 rofecoxib [From Vioxx] Allergy Swelling Verified 01/03/20 16:36 sumatriptan [From Imitrex] AdvReac Chest Pain Verified 01/03/20 16:36 sumatriptan succinate AdvReac Chest Pain Verified 01/03/20 16:36 [From Imitrex] tramadol HCl [From Ultram] AdvReac Nausea & Verified 01/03/20 16:36 Vomiting PAPER TAPE Allergy Itching Uncoded 01/03/20 16:36 Physical Exam Vitals: Vital Signs Temp Pulse Pulse Resp BP BP Pulse Ox 01/04/20 09:00 16 01/04/20 08:01 72 01/04/20 07:51 72 01/04/20 07:24 98.0 F 71 16 109/61 92 L 01/04/20 03:00 97.6 F 72 17 108/73 98 01/03/20 21:00 97.8 F 76 17 99/64 95 01/03/20 20:01 72 01/03/20 19:51 72 01/03/20 16:53 16 01/03/20 16:50 97.4 F L 69 16 91/55 94 L 01/03/20 16:02 78 01/03/20 15:55 86 16 123/86 95 01/03/20 15:12 78 01/03/20 14:57 80 01/03/20 14:15 16 96 01/03/20 14:13 98.2 F 85 16 108/72 99 Intake and Output 01/03/20 01/04/20 01/04/20 22:59 06:59 14:59 Intake Total 1200 Balance 1200 Intake: Oral 1200 Other: Voiding Method Toilet Toilet Toilet # Voids 1 2 2 Weight 56.699 kg PHYSICAL EXAMINATION: GENERAL: 59-year-old somewhat of a sedated, unkempt female HEENT: Head is atraumatic, normocephalic. Pupils equal, round. Sclera anicteric. Conjunctiva are clear. Mucous membranes of the mouth are moist. Neck is supple. There is no elevated jugular venous pressure. No carotid bruit is heard. HEART EXAMINATION: Heart S1, S2 normal. No murmur or gallop heard. CHEST EXAMINATION: Lungs reveal scattered coarse rhonchi and wheezing throughout ABDOMEN: Soft, nontender. Bowel sounds are heard. No organomegaly noted. EXTREMITIES: 2+ peripheral pulses with no evidence of peripheral edema and no calf tenderness noted. NEUROLOGIC patient is awake, alert and oriented 3 . . Results 01/04/20 07:33 01/04/20 07:33 Cardiac Enzymes 01/03/20 01/03/20 01/03/20 Range/Units 14:19 14:19 17:47 AST 18 (14-36) U/L Troponin I <0.012 <0.012 (0.000-0.034) ng/mL 01/03/20 01/04/20 Range/Units 20:24 07:33 AST 15 (14-36) U/L Troponin I <0.012 (0.000-0.034) ng/mL Coagulation 01/03/20 Range/Units 14:19 PT 10.7 (9.0-12.0) sec APTT 29.6 (22.0-30.0) sec Lipids 01/04/20 Range/Units 07:33 Triglycerides 77 (<150) mg/dL Cholesterol 147 (<200) mg/dL HDL Cholesterol 72 H (40-60) mg/dL CBC 01/03/20 01/04/20 Range/Units 14:19 07:33 WBC 14.1 H 17.3 H (3.8-10.6) k/uL RBC 3.88 3.87 (3.80-5.40) m/uL Hgb 13.5 13.2 (11.4-16.0) gm/dL Hct 40.2 40.8 (34.0-46.0) % Plt Count 226 272 (150-450) k/uL Comprehensive Metabolic Panel 01/03/20 01/04/20 Range/Units 14:19 07:33 Sodium 133 L 134 L (137-145) mmol/L Potassium 3.6 3.9 (3.5-5.1) mmol/L Chloride 99 99 (98-107) mmol/L Carbon Dioxide 26 27 (22-30) mmol/L BUN 15 32 H (7-17) mg/dL Creatinine 0.41 L 0.68 (0.52-1.04) mg/dL Glucose 152 H 144 H (74-99) mg/dL Calcium 8.8 9.1 (8.4-10.2) mg/dL AST 18 15 (14-36) U/L ALT 9 10 (4-34) U/L Alkaline Phosphatase 100 99 (38-126) U/L Total Protein 6.6 6.7 (6.3-8.2) g/dL Albumin 4.0 4.0 (3.5-5.0) g/dL Current Medications Generic Name Dose Route Start Last Admin Trade Name Freq PRN Reason Stop Dose Admin Acetaminophen 650 mg 01/03/20 21:08 01/04/20 01:48 Acetaminophen Tab 325 Mg Tab PO 650 mg Q6H PRN Administration Pain Hydrocodone Bitart/Acetaminophen 1 each 01/03/20 22:00 01/04/20 08:10 Hydrocodone/Apap 10-325mg 1 Each Tab PO 1 each TID MATT Administration Albuterol Sulfate 2.5 mg 01/03/20 16:00 01/04/20 07:51 Albuterol Nebulized 2.5 Mg/3 Ml INHALATION 2.5 mg RT-QID MATT Administration Albuterol/Ipratropium 3 ml 01/03/20 21:12 Ipratropium-Albuterol 3 Ml Neb INHALATION RT-QID PRN Shortness Of Breath Or Wheezing Atorvastatin Calcium 10 mg 01/04/20 09:00 01/04/20 08:10 Atorvastatin 10 Mg Tab PO 10 mg DAILY MATT Administration Baclofen 10 mg 01/03/20 21:08 Baclofen 10 Mg Tab PO HS PRN Muscle Spasm Dicyclomine HCl 10 mg 01/03/20 22:00 01/04/20 08:11 Dicyclomine 10 Mg Cap PO 10 mg TID MATT Administration Enoxaparin Sodium 40 mg 10/12/20 09:00 Enoxaparin 40 Mg/0.4 Ml Syringe SQ DAILY MATT Escitalopram Oxalate 20 mg 01/04/20 09:00 01/04/20 08:11 Escitalopram 20 Mg Tab PO 20 mg DAILY MATT Administration Gabapentin 800 mg 01/03/20 22:00 01/04/20 08:10 Gabapentin 400 Mg Cap PO 800 mg TID MATT Administration Guaifenesin 200 mg 01/03/20 21:08 Guaifenesin Syrup 100mg/5ml 200 Mg/10 Ml Cup PO Q6H PRN Cough Ibuprofen 800 mg 01/03/20 21:08 Ibuprofen 800 Mg Tab PO BID PRN Pain Lidocaine HCl 1 applic 01/03/20 21:08 Lidocaine 2% Gel 30 Ml Tube TOPICAL Q8H PRN HIP/SHOULDERS/BACK PAIN Methylprednisolone Sodium Succinate 60 mg 01/03/20 18:00 01/04/20 06:55 Methylprednisolone Sod Succi 125 Mg/2 Ml Vial IV 60 mg Q6HR MATT Administration Metoclopramide HCl 10 mg 01/03/20 21:08 Metoclopramide 10 Mg Tab PO AC-TID PRN Nausea Morphine Sulfate 60 mg 01/03/20 21:30 01/04/20 08:11 Morphine Sulfate Er 60 Mg Tablet PO Not Given Q12HR MATT Nicotine 1 patch 01/03/20 20:00 01/03/20 20:56 Nicotine 21mg/24hr Patch TRANSDERM 1 patch Q24H MATT Administration Nitroglycerin 0.4 mg 01/03/20 15:26 Nitroglycerin Sl Tabs 0.4 Mg Tab SUBLINGUAL Q5M PRN Chest Pain Pantoprazole Sodium 40 mg 01/04/20 07:30 01/04/20 08:10 Pantoprazole 40 Mg Tablet PO 40 mg AC-BRKFST MATT Administration Trazodone HCl 150 mg 01/04/20 21:00 Trazodone Hcl 50 Mg Tab PO HS MATT Intake and Output 01/03/20 01/04/20 01/04/20 22:59 06:59 14:59 Intake Total 1200 Balance 1200 Intake: Oral 1200 Other: Voiding Method Toilet Toilet Toilet # Voids 1 2 2 Weight 56.699 kg 01/04/20 07:33 01/04/20 07:33 EKG Interpretations (text) Her EKG on presentation here showed a normal sinus rhythm with no acute changes. Assessment and Plan Plan: Assessment and plan #1 symptoms of shortness of breath with associated cough, possible COPD exacerbation or tracheobronchitis #2 atypical chest pain, pleuritic in nature, occurs with cough. Troponins negative 3. EKG shows normal sinus rhythm with no acute changes. #3 COPD #4 nicotine dependence #5 chronic pain syndrome #6 sleep apnea #7 prior TIA #8 history of opiate dependence #9 hyperlipidemia Plan We will obtain an echocardiogram with Doppler study. Once the patient's lung status improves, her outpatient stress testing down the road. Jack virus testing pending. Further recommendations to follow. DNP note has been reviewed, I agree with a documented findings and plan of care. Patient was seen and examined.
[2020-01-04] MEDS: ENOXAPARIN 40 MG/0.4 ML SYRINGE SQ SCH (10:35)
--- NOTE | 2020-01-04 13:48 | XR ---
EXAMINATION TYPE: XR chest 2V DATE OF EXAM: 01/04/2020 CLINICAL HISTORY: Cough. History of COPD. TECHNIQUE: Frontal and lateral views of the chest are obtained. 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 The cardiomediastinal silhouette is within normal limits for size. Pulmonary vasculature is normal. There is no focal air space opacity, pleural effusion, or pneumothorax seen. Left shoulde r prosthesis. There is increased thoracic kyphosis with midthoracic vertebral body near vertebra plan a redemonstrated. IMPRESSION: No acute cardiopulmonary process.
--- NOTE | 2020-01-04 14:20 | US ---
EXAMINATION TYPE: US abdomen complete DATE OF EXAM: 01/04/2020 COMPARISON: CT abdomen pelvis 06/07/2015 CLINICAL HISTORY: Epigastric pain. Pt states epigastric pain x many years. History of cholecystectomy . EXAM MEASUREMENTS: Liver Length: 16.1 cm CBD: 0.4 cm Spleen: 9.2 cm Right Kidney: 11.3 x 4.3 x 5.1 cm Left Kidney: 11.4 x 5.9 x 5.1 cm Pancreas: Normal where visualized. Liver: Normal. Gallbladder: Surgically absent. Evidence for sonographic Robbins's sign: No CBD: Normal. No intrahepatic or extrahepatic biliary ductal dilatation. Spleen: Normal. Right Kidney: Normal. Left Kidney: Somewhat obscured due to overlying bowel gas. No evidence of hydronephrosis. Upper IVC: Normal. Abd Aorta: Normal. IMPRESSION: 1. No findings to explain patient's epigastric abdominal pain. 2. No biliary ductal dilatation status post cholecystectomy.
[2020-01-04] MEDS: IBUPROFEN 800 MG TAB PO PRN (14:21)
--- NOTE | 2020-01-04 15:21 | P.CNPUL ---
History of Present Illness Consult date: 01/04/20 Reason for consult: dyspnea, chest pain Chief complaint: dyspnea, chest pain History of present illness: this is a 59-year-old white female patient of Dr. Esteves with a known history of COPD, chronic and ongoing history of smoking, patient carries at least [id number] smoking history, hypertension, hyperlipidemia, previous history of TIA and CVA, obstructive sleep apnea on CPAP, chronic pain syndrome, opiate dependence, seizure disorder, previous history of MRSA infection, previous history of pulmonary embolism with embolectomy, history of IBS, recent weight loss of 20 pounds in the last few months related to decreased oral intake,who presented emergency department on 01/03/2020 for evaluation of progressive s hortness of breath, severe episodes of coughing, cold sweats, anterior sternal chest pain that was exacerbated by episodes of severe coughing, patient denies any fevers, but admits to chills, in addition patient states she was having wheezing, production of yellow phlegm and she was sleeping a lot. chest x-ray showed poor inspiration, some coarsening of the interstitial markings at the lung bases. labs showed white blood cell count of 14.1, hemoglobin of 13.5, coagulation profile was within normal limits, sodium was 133, the rest of the electrolytes were unremarkable, BUN is 15 creatinine 0.41, 3 sets of troponins were less than 0.012, proBNP was 745, lipase was 10, patient was evaluated by cardiology, and the chest pain was felt to be atypical. During our evaluation patient does have congestive cough, wheezing, and she states her chest pain is exacerbated by episodes of coughing.she was started on nebulized bronchodilators, she was given a dose of Toradol for chest discomfort, she co ntinues on oral Motrin for pain, in addition to Coggon and MS Contin, she is on Robitussin cough syrup, Symbicort,IV steroids. follow-up chest x-ray today shows no acute cardiopulmonary process. Review of Systems All systems: negative Constitutional: Denies chills, Denies fever Eyes: denies blurred vision, denies pain Ears, nose, mouth and throat: Denies headache, Denies sore throat Cardiovascular: Reports chest pain, Denies shortness of breath Respiratory: Reports congestion, Reports cough with sputum, Reports dyspnea, Reports wheezing, Denies cough Gastrointestinal: Denies abdominal pain, Denies diarrhea, Denies nausea, Denies vomiting Genitourinary: Denies dysuria, Denies hematuria Musculoskeletal: Denies myalgias Integumentary: Denies pruritus, Denies rash Neurological: Denies numbness, Denies weakness Psychiatric: Denies anxiety, Denies depression Endocrine: Denies fatigue, Denies weight change Past Medical History Past Medical History: COPD, CVA/TIA, GERD/Reflux, Hyperlipidemia, Hypertension, Osteoarthritis (OA), Pneumonia, Pulmonary Embolus (PE), Seizure Disorder, Sleep Apnea/CPAP/BIPAP Additional Past Medical History / Comment(s): Chronic pain syndrome, opiate dependence. ONLY USES CPAP SOMETIMES, hiatal hernia, migraines,bronchitis,sinus problems, endometreosis,stress incont of urine,constipation. LAST SEIZURE WAS A CHILD. History of Any Multi-Drug Resistant Organisms: MRSA Date of last positivie culture/infection: 2010 MDRO Source:: LEFT LEG Past Surgical History: Adenoidectomy, Back Surgery, Cholecystectomy, Orthopedic Surgery, Tonsillectomy Additional Past Surgical History / Comment(s): Lung surgery-to removed blood clot. BILAT KNEE scopes BILAT TKA AND [place]RIA. RT LEG TUMOR REMOVALed(benign). Back has rika/screws. Lt shoulder replaced. Rt shoulder has pin. PAIN CLINIC PROCEDURES. LAPROSCOPY,GANGLION CYST REMOVED HERMINIA WRISTS. LT CTR, BUNIONECTOMY. EGD/COLONOSCOPY. CORTISONE SHOT 09/11/16 Past Anesthesia/Blood Transfusion Reactions: Motion Sickness, Postoperative Nausea & Vomiting (PONV) Additional Past Anesthesia/Blood Transfusion Reaction / Comment(s): CLAUSTROPHOBIA Past Psychological History: Anxiety, Depression Smoking Status: Current every day smoker Past Alcohol Use History: None Reported Additional Past Alcohol Use History / Comment(s): Started smoking at age 12 or 13, smokes 1.5 ppd. Past Drug Use History: None Reported - Past Family History Father Family Medical History: Cancer Additional Family Medical History / Comment(s): bowel cancer Mother Additional Family Medical History / Comment(s): crohns Sister(s) Family Medical History: Cancer Medications and Allergies Home Medications Medication Instructions Recorded Confirmed Type Escitalopram [Lexapro] 20 mg PO DAILY 08/18/13 01/03/20 History Gabapentin [Neurontin] 800 mg PO TID 08/18/13 01/03/20 History HYDROcodone/APAP 10-325MG [[place] 1 tab PO TID 08/18/13 01/03/20 History 10-325] Pantoprazole Sodium [Protonix] 40 mg PO AC-BRKFST 12/31/13 01/03/20 History Simvastatin [Zocor] 20 mg PO DAILY 12/31/13 01/03/20 History Morphine Sulfate ER [Ms Contin] 60 mg PO Q12H 11/04/15 01/03/20 History Ibuprofen [Motrin] 800 mg PO BID PRN 09/13/16 01/03/20 History Baclofen 10 mg PO HS PRN 05/19/19 01/03/20 History Dicyclomine [Bentyl] 10 mg PO TID 05/19/19 01/03/20 History Metoclopramide HCl [Reglan] 10 mg PO AC-TID PRN 05/19/19 01/03/20 History Acetaminophen Tab [Tylenol] 650 mg PO Q6H PRN 01/03/20 01/03/20 History Lidocaine 2% Gel [Xylocaine Jelly 1 applic TOPICAL Q8H PRN 01/03/20 01/03/20 History 2%] guaiFENesin SYRUP 100MG/5ML 200 mg PO Q6H PRN 01/03/20 01/03/20 History [Robitussin] traZODone HCL 150 mg PO HS 01/03/20 01/03/20 History Allergies Allergy/AdvReac Type Severity Reaction Status Date / Time celecoxib [From Celebrex] Allergy Swelling Verified 01/03/20 16:36 Iodinated Contrast Media Allergy Dyspnea Verified 01/03/20 16:36 [Iodinated Contrast Media - IV Dye] Penicillins Allergy Rash/Hives Verified 01/03/20 16:36 rofecoxib [From Vioxx] Allergy Swelling Verified 01/03/20 16:36 sumatriptan [From Imitrex] AdvReac Chest Pain Verified 01/03/20 16:36 sumatriptan succinate AdvReac Chest Pain Verified 01/03/20 16:36 [From Imitrex] tramadol HCl [From Ultram] AdvReac Nausea & Verified 01/03/20 16:36 Vomiting PAPER TAPE Allergy Itching Uncoded 01/03/20 16:36 Physical Exam Vitals: Vital Signs Temp Pulse Pulse Pulse Resp BP BP 01/04/20 13:54 97.9 F 71 18 147/76 01/04/20 13:53 71 16 01/04/20 11:27 72 01/04/20 11:17 76 01/04/20 09:00 16 01/04/20 08:01 72 01/04/20 07:51 72 01/04/20 07:24 98.0 F 71 16 109/61 01/04/20 03:00 97.6 F 72 17 108/73 01/03/20 21:00 97.8 F 76 17 99/64 01/03/20 20:01 72 01/03/20 19:51 72 01/03/20 16:53 16 01/03/20 16:50 97.4 F L 69 16 91/55 01/03/20 16:02 78 01/03/20 15:55 86 16 123/86 01/03/20 15:12 78 Pulse Ox 01/04/20 13:54 95 01/04/20 13:53 01/04/20 11:27 01/04/20 11:17 01/04/20 09:00 01/04/20 08:01 01/04/20 07:51 01/04/20 07:24 92 L 01/04/20 03:00 98 01/03/20 21:00 95 01/03/20 20:01 01/03/20 19:51 01/03/20 16:53 01/03/20 16:50 94 L 01/03/20 16:02 01/03/20 15:55 95 01/03/20 15:12 Intake and Output 01/04/20 01/04/20 01/04/20 06:59 14:59 22:59 Intake Total 1200 1060 Balance 1200 1060 Intake: Oral 1200 1060 Other: Voiding Method Toilet Toilet # Voids 2 2 GENERAL EXAM: Alert, very pleasant, 59-year-old frail looking white female, 3 L of oxygen of pulse ox of 95% loose congested cough comfortable in no apparent distress. HEAD: Normocephalic/atraumatic. EYES: Normal reaction of pupils, equal size. Conjunctiva pink, sclera white. NOSE: Clear with pink turbinates. THROAT: No erythema or exudates. NECK: No masses, no JVD, no thyroid enlargement, no adenopathy. CHEST: No chest wall deformity. Symmetrical expansion. LUNGS: Equal air entry with diffuse wheezes CVS: Regular rate and rhythm, normal S1 and S2, no gallops, no murmurs, no rubs ABDOMEN: Soft, nontender. No hepatosplenomegaly, normal bowel sounds, no guarding or rigidity. EXTREMITIES: No clubbing, no edema, no cyanosis, 2+ pulses and upper and lower extremities. MUSCULOSKELETAL: Muscle strength and tone normal. SPINE: No scoliosis or deformity SKIN: No rashes CENTRAL NERVOUS SYSTEM: Alert and oriented -3. No focal deficits, tone is normal in all 4 extremities. PSYCHIATRIC: Alert and oriented -3. Appropriate affect. Intact judgment and insight. Results - Laboratory Findings CBC and BMP: 01/04/20 07:33 01/04/20 07:33 PT/INR, D-dimer PT 10.7 sec (9.0-12.0) 01/03/20 14:19 INR 1.0 (<1.2) 01/03/20 14:19 Abnormal lab findings: Abnormal Labs 01/03/20 01/03/20 01/04/20 14:19 14:19 07:33 WBC 14.1 H MCV 103.4 H Neutrophils # 13.0 H Lymphocytes # 0.4 L Sodium 133 L 134 L BUN 32 H Creatinine 0.41 L Glucose 152 H 144 H HDL Cholesterol 72 H Lipase 10 L TSH 01/04/20 01/04/20 07:33 07:33 WBC 17.3 H MCV 105.5 H Neutrophils # 16.1 H Lymphocytes # 0.7 L Sodium BUN Creatinine Glucose HDL Cholesterol Lipase TSH 0.174 L - Diagnostic Findings Chest x-ray: report reviewed, image reviewed Additional studies: EKG reviewed, ultrasound abdomen reviewed Assessment and Plan Plan: Assessment: #1. Chest pain, anterior chest wall, exacerbated by deep breathing and coughing, and episodes of severe coughing spells. patient was seen by cardiology, 3 sets of troponins were negative, EKG without acute ischemic changes, and cardiology felt the pain was atypical in nature #2. Acute exacerbation of chronic obstructive pulmonary disease with purulent tracheobronchitis, chest x-ray did not show any evidence of acute pulmonary process #3.Epigastric discomfort, abdominal ultrasound without acute findings, LFTs were within normal limits, lipase is negative at 10 #4. chronic and ongoing history of smoking, carries a [id number] history of smoking #5. history of COPD #6. History of sleep apnea, on CPAP #7. history of weight loss, 20 pounds in the last few months, related to poor oral intake #8. History of IBS #9. history of hypertension #10. Hyperlipidemia #11. Chronic pain syndrome relat #12. History of pulmonary embolism at age 18, requiring no further treatment #13. History of CVA #14. History of seizure disorder Plan: We'll continue current medical treatment, IV steroids and nebulized bronchodilators, will add doxycycline for antibiotic coverage, continue with nicotine replacement therapy, chest x-ray has been reviewed showing no clear evidence of pneumonia, we'll treat the patient were acute exacerbation of COPD with purulent tracheobronchitis, nicotine cessation counseling was done I performed a history & physical examination of the patient and discussed their management with my nurse practitioner, Lelo Byrnes. I reviewed the nurse practitioner's note and agree with the documented findings and plan of care. Lung sounds are positive for diffuse wheezes throughout the lung gil. The findings and the impression was discussed with the patient. I attest to the documentation by the nurse practitioner. Time with Patient: Greater than 30
[2020-01-04] MEDS: METOCLOPRAMIDE 10 MG TAB PO PRN (17:17)
[2020-01-04 17:42] LABS: Hemoglobin A1C 5.8 % (4.0-6.0)
[2020-01-04] MEDS: SYMBICORT 160-4.5 MCG INHALER INHALATION SCH (19:54)
[2020-01-04] MEDS: DOXYCYCLINE 100 MG CAP PO SCH (21:30)
[2020-01-04] MEDS: NICOTINE 21MG/24HR PATCH TRANSDERM SCH (21:30)
[2020-01-04] MEDS: traZODone HCL 50 MG TAB PO SCH (21:30)
[2020-01-05] MEDS: methylPREDNISolone SOD SUCCI 125 MG/2 ML VIAL IV SCH ×4 (06:29→23:08)
[2020-01-05] MEDS: GABAPENTIN 400 MG CAP PO SCH ×3 (07:51→21:47)
[2020-01-05] MEDS: HYDROcodone/APAP 10-325MG 1 EACH TAB PO SCH ×3 (07:52→21:47)
[2020-01-05] MEDS: DICYCLOMINE 10 MG CAP PO SCH ×3 (07:52→21:47)
[2020-01-05] MEDS: ENOXAPARIN 40 MG/0.4 ML SYRINGE SQ SCH (07:52)
[2020-01-05] MEDS: PANTOPRAZOLE 40 MG TABLET PO SCH (07:52)
[2020-01-05] MEDS: ATORVASTATIN 10 MG TAB PO SCH (07:52)
[2020-01-05] MEDS: ESCITALOPRAM 20 MG TAB PO SCH (07:52)
[2020-01-05] MEDS: DOXYCYCLINE 100 MG CAP PO SCH ×2 (07:52→21:46)
[2020-01-05] MEDS: METOCLOPRAMIDE 10 MG TAB PO PRN ×2 (07:53→17:25)
[2020-01-05] MEDS: MORPHINE SULFATE ER 60 MG TABLET PO SCH ×3 (07:53→20:10)
[2020-01-05] MEDS: ALBUTEROL NEBULIZED 2.5 MG/3 ML INHALATION SCH ×4 (08:01→20:17)
[2020-01-05 08:07] LABS: Basophils % (A) 0 %; Eosinophils # (A) 0.1 k/uL (0-0.7); Eosinophils % (A) 1 %; HCT 39.9 % (34.0-46.0); HGB 13.1 gm/dL (11.4-16.0); Lymphocytes # (A) 0.3 k/uL (1.0-4.8); Lymphocytes % (A) 2 %; MCH 33.9 pg (25.0-35.0); MCHC 32.7 g/dL (31.0-37.0); MCV 103.7 fL (80.0-100.0); Macrocytosis Slight; Mean Platelet Volume 7.4; Monocytes # (A) 0.3 k/uL (0-1.0); Monocytes % (A) 2 %; Neutrophils % (A) 95 %; Platelet Count 276 k/uL (150-450); RBC 3.85 m/uL (3.80-5.40); RDW 13.2 % (11.5-15.5); WBC 14.8 k/uL (3.8-10.6)
[2020-01-05] MEDS: SYMBICORT 160-4.5 MCG INHALER INHALATION SCH ×2 (08:13→20:18)
[2020-01-05 08:20] LABS: ALT 10 U/L (4-34); AST 14 U/L (14-36); African American GFR (CKD) >90 (>60 ml/min/1.73 sqM); Albumin 3.8 g/dL (3.5-5.0); Alkaline Phosphatase 91 U/L (38-126); Anion Gap 6 mmol/L; Blood Urea Nitrogen 36 mg/dL (7-17); Calcium 9.3 mg/dL (8.4-10.2); Carbon Dioxide 29 mmol/L (22-30); Chloride 100 mmol/L (98-107); Glucose 175 mg/dL (74-99); Non-African American GFR(CKD) >90 (>60 ml/min/1.73 sqM); Potassium 3.5 mmol/L (3.5-5.1); Sodium 135 mmol/L (137-145); Total Bilirubin 0.6 mg/dL (0.2-1.3); Total Protein 6.5 g/dL (6.3-8.2)
--- NOTE | 2020-01-05 10:46 | CDI ---
Documentation Clarification Form Date: 01/05/2020 10:04:00 AM From: Marie Mendoza RN, CCDS Admit Date: 01/05/2020 09:11:00 AM Patient Name: Melia Smith Visit Number: [id number] ATTENTION: The Clinical Documentation Specialists (CDI) and [facility] Coding Staff appreciate your assistance in clarifying documentation. Please respond to the clarification below the line at the bottom and electronically sign. The CDI & [facility] Coding staff will review the response and follow-up if needed. Please note: Queries are made part of the Legal Health Record. If you have any questions, please contact the author of this message via ITS. Dr. Светлана pineda Patient has been noted to have a low BMI of 19 with documented weight loss and described as emaciated. Please provide clinical significance. History/Risk Factors: COPD, IBS, Smoker, Depression, chronic back pain on narcotics Clinical Indicators: 01/03 Pulmonary consult: "recent weight loss of 20 pounds in the last few months related to decreased oral intake." 01/03 Cardiology consult: " 6 is a 59-year-old, somewhat emaciated, and unkempt female with history of hyperlipidemia, nicotine dependence, patient's smokes one package of cigarettes per day, history of COPD, chronic pain syndrome, TIA, sleep apnea, and history of opiate dependence." 01/02-01/04 Labs: BUN 15/32/36, Creatinine .41/.68/.48 Current BMI: 19 Fluid accumulation: no edema Treatment: Dietary Consult: not ordered Supplements: not ordered. Pt ordered heart healthy regular diet Lab monitoring: Am Daily In your professional opinion, can you please clarify if these findings signify one of the following conditions? Mild Protein-Calorie Malnutrition Moderate Protein-Calorie Malnutrition Severe Protein-Calorie Malnutrition Other condition, please specify Unable to determine (Last Revision: September 2018) mild protein calorie malnutrition weight loss likely related to opioid use for chronic pain MTDD
--- NOTE | 2020-01-05 11:43 | P.PN ---
Subjective Progress Note Date: 01/05/20 This is a 59-year-old, somewhat emaciated, and unkempt female with history of hyperlipidemia, nicotine dependence, patient's smokes one package of cigarettes per day, history of COPD, chronic pain syndrome, TIA, sleep apnea, and history of opiate dependence. Patient presents to the hospital with symptoms of progressively worsening shortness of breath with associated cough, at times productive. She also states that she was running mild fevers at home. Patient also was experiencing chest pain, every time she coughs. Chest x-ray did not reveal any acute process. Her EKG on presentation here showed a normal sinus rhythm with no acute changes. Blood pressure 110/60 with a heart rate in the 70s, respirations 18, 92% on 3 L of oxygen. White blood cell count 14.1 on admission, hemoglobin 13.5, platelet count 226. This morning white blood cell count is 17.3, hemoglobin 13.2, platelet count 272. Sodium 133, potassium 3.6, BUN 15, creatinine 0.4. Magnesium 1.7 troponin 0.0123 cholesterol 138, triglycerides 82, LDL 50 and HDL 72. At the time of my examination this morning, patient continues to have a cough, he states the chest pain only occurs with coughing. Patient does state that she's lost approximately 20 pounds in weight recently, she does have a history of IBS and has not been eating much according to her. 01/05/2020 Patient was seen and examined this morning, overall she states that she's feeling significantly better than yesterday. Echocardiogram with Doppler study is been performed, results are yet pending. Blood pressure 136/70 with a heart rate in the 80s, 95% on 3 L of oxygen. White blood cell count 14.8, hemoglobin 13.1, platelet count 276. Sodium 135, potassium 3.5, BUN 36, creatinine 0.4. Objective - Vital Signs Vital signs: Vital Signs Temp 97.8 F 01/05/20 07:57 Pulse 84 01/05/20 08:01 Resp 16 01/05/20 07:58 BP 137/78 01/05/20 07:57 Pulse Ox 95 01/05/20 07:57 Intake & Output 01/04/20 01/05/20 01/05/20 18:59 06:59 18:59 Intake Total 1060 Balance 1060 Intake: Oral 1060 Other: Voiding Method Toilet Toilet # Voids 2 1 1 - Exam PHYSICAL EXAMINATION: GENERAL: 59-year-old somewhat of a sedated, unkempt female HEENT: Head is atraumatic, normocephalic. Pupils equal, round. Sclera anicteric. Conjunctiva are clear. Mucous membranes of the mouth are moist. Ne ck is supple. There is no elevated jugular venous pressure. No carotid bruit is heard. HEART EXAMINATION: Heart S1, S2 normal. No murmur or gallop heard. CHEST EXAMINATION: Lungs reveal scattered coarse rhonchi and wheezing throughout ABDOMEN: Soft, nontender. Bowel sounds are heard. No organomegaly noted. EXTREMITIES: 2+ peripheral pulses with no evidence of peripheral edema and no calf tenderness noted. NEUROLOGIC patient is awake, alert and oriented 3 . - Labs CBC & Chem 7: 01/05/20 07:45 01/05/20 07:45 Labs: Abnormal Lab Results - Last 24 Hours (Table) 01/05/20 01/05/20 Range/Units 07:45 07:45 WBC 14.8 H (3.8-10.6) k/uL MCV 103.7 H (80.0-100.0) fL Neutrophils # 14.0 H (1.3-7.7) k/uL Lymphocytes # 0.3 L (1.0-4.8) k/uL Sodium 135 L (137-145) mmol/L BUN 36 H (7-17) mg/dL Creatinine 0.48 L (0.52-1.04) mg/dL Glucose 175 H (74-99) mg/dL Assessment and Plan Plan: Assessment and plan #1 symptoms of shortness of breath with associated cough, possible COPD exacerbation or tracheobronchitis #2 atypical chest pain, pleuritic in nature, occurs with cough. Troponins negative 3. EKG shows normal sinus rhythm with no acute changes. #3 COPD #4 nicotine dependence #5 chronic pain syndrome #6 sleep apnea #7 prior TIA #8 history of opiate dependence #9 hyperlipidemia Plan Patient did have an echocardiogram with Doppler study performed, results are yet pending. We will review her echo, continue current therapy. As an outpatient once the lung status has improved, patient will require cardiac evaluation. DNP note has been reviewed, I agree with a documented findings and plan of care. Patient was seen and examined.
--- NOTE | 2020-01-05 13:57 | P.PN ---
Subjective Progress Note Date: 01/05/20 Principal diagnosis: Acute exacerbation of COPD this is a 59-year-old white female patient of Dr. Esteves with a known history of COPD, chronic and ongoing history of smoking, patient carries at least [id number] smoking history, hypertension, hyperlipidemia, previous history of TIA and CVA, obstructive sleep apnea on CPAP, chronic pain syndrome, opiate dependence, seizure disorder, previous history of MRSA infection, previous history of pulmonary embolism with embolectomy, history of IBS, recent weight loss of 20 pounds in the last few months related to decreased oral intake,who presented emergency department on 01/03/2020 for evaluation of progressive shortness of breath, severe episodes of coughing, cold sweats, anterior sternal chest pain that was exacerbated by episodes of severe coughing, patient denies any fevers, but admits to chills, in addition patient states she was having wheezing, production of yellow phlegm and she was sleeping a lot. chest x-ray showed poor inspiration, some coarsening of the interstitial markings at the lung bases. labs showed white blood cell count of 14.1, hemoglobin of 13.5, coagulation profile was within normal limits, sodium was 133, the rest of the electrolytes were unremarkable, BUN is 15 creatinine 0.41, 3 sets of troponins were less than 0.012, proBNP was 745, lipase was 10, patient was evaluated by cardiology, and the chest pain was felt to be atypical. During our evaluation patient does have congestive cough, wheezing, and she states her chest pain is exacerbated by episodes of coughing.she was started on nebulized bronchodilators, she was given a dose of Toradol for chest discomfort, she continues on oral Motrin for pain, in addition to [place] and [place] Contin, she is on Robitussin cough syrup, Symbicort,IV steroids. follow-up chest x-ray today shows no acute cardiopulmonary process. Reevaluated today on 01/05/20, patient remains in the observation unit, continues to have intermittent cough wheezing and shortness of breath, she continues to have some vague chest wall discomfort and tenderness over the anterior chest wall. Patient is on bronchodilators, steroids, and antibiotics, WBC count today is 14.8 hemoglobin is 13.1 left lites are normal renal profile is normal. Jack virus PCR was not detected Objective - Vital Signs Vital signs: Vital Signs Temp 97.8 F 01/05/20 07:57 Pulse 84 01/05/20 08:01 Resp 16 01/05/20 07:58 BP 137/78 01/05/20 07:57 Pulse Ox 95 01/05/20 07:57 Intake & Output 01/04/20 01/05/20 01/05/20 18:59 06:59 18:59 Intake Total 1060 Balance 1060 Intake: Oral 1060 Other: Voiding Method Toilet Toilet # Voids 2 1 1 - Exam Physical Exam: Revealed a 59-year-old female in no distress. Head: Atraumatic, normocephalic. HEENT:[Neck is supple.] [No neck masses.] [No thyromegaly.] [No JVD.] Chest: [Symmetrical chest expansion, rhonchi and wheezes noted bilaterally, tenderness over the anterior chest wall was noted again.] Cardiac Exam: [Normal S1 and S2, no S3 gallop, no murmur.] Abdomen: [Soft, nontender, no megaly, no rebound, no guarding, normal bowel sounds.] Extremities: [No clubbing, no edema, no cyanosis.] Neurological Exam: [No focal neurologic deficit.] Alert oriented 3. Psychiatric: Normal mood, affect and normal mental status examination. Skin: No rashes. Musculoskeletal: Muscle strength and tone are normal no deformities. - Labs CBC & Chem 7: 01/05/20 07:45 01/05/20 07:45 Labs: Abnormal Lab Results - Last 24 Hours (Table) 01/05/20 01/05/20 Range/Units 07:45 07:45 WBC 14.8 H (3.8-10.6) k/uL MCV 103.7 H (80.0-100.0) fL Neutrophils # 14.0 H (1.3-7.7) k/uL Lymphocytes # 0.3 L (1.0-4.8) k/uL Sodium 135 L (137-145) mmol/L BUN 36 H (7-17) mg/dL Creatinine 0.48 L (0.52-1.04) mg/dL Glucose 175 H (74-99) mg/dL Assessment and Plan Assessment: #1. Chest wall pain, atypical. #2. Acute exacerbation of COPD. Associated with acute tracheobronchitis, no evidence of pneumonia on chest x-ray. #3.Epigastric discomfort, abdominal ultrasound without acute findings, LFTs were within normal limits, lipase is negative at 10 #4. Tobacco dependence syndrome, [id number] smoking history. #5. history of severe COPD. #6. History of sleep apnea, on CPAP #7. history of weight loss, 20 pounds in the last few months, related to poor oral intake #8. History of IBS, mostly associated with constipation. #9. history of hypertension #10. Hyperlipidemia #11. History of CVA #12. History of seizure disorder Recommendation: Continue present supportive care measures. Continue antibiotics and steroids. Patient is on doxycycline. Continue updrafts. Counseled regarding smoking cessation. Not quite ready for discharge planning, possibly in the next 24-48 hours. We'll continue to follow. Time with Patient: Less than 30
[2020-01-05] MEDS: IBUPROFEN 800 MG TAB PO PRN (17:28)
--- NOTE | 2020-01-05 18:01 | P.PN ---
Subjective Progress Note Date: 01/05/20 Melia Horan, is a 59-year-old female who presented to [facility] emergency room with a chief complaint of worsening shortness of breath patient was also complaining of episodes of chest pain she describes a pressure sensation in the middle of her chest radiating to the back, patient was also complaining of abdominal pain mostly in the epigastric area she was evaluated in the emergency room, her vital exam on presentation revealed a temperature of 98.2 pulse 85 respiration 16 blood pressure 108/72 pulse ox 99% on room air her white blood count was 14.1 hemoglobin 13.5 platelet count 226 sodium 133 potassium 3.6 creatinine 0.41 glucose 152 first troponin was less than 0.012 l ipase was 10 first EKG revealed normal sinus rhythm with sinus arrhythmia normal EKG chest x-ray did not reveal any evidence of infiltrate or heart failure preliminary diagnosis was acute exacerbation of chronic obstructive pulmonary disease and chest pain patient was admitted to observation unit she was started on IV steroids and inhaled bronchodilators pulmonary consultation and cardiology consultation were requested serial troponin level were ordered. Patient has a known history of chronic obstructive pulmonary disease she has a prolonged history of smoking she does not have any previous history of coronary artery disease she has known history of hyperlipidemia, chronic back pain and osteoarthritis maintained on narcotics for pain management, history of depression, and history of gastroesophageal reflux disease. On review of systems patient is alert and oriented in no apparent distress she is complaining of shortness of breath with any activity she is complaining of occasional cough at this time she is chest pain-free there is no fever or chills no headache or dizziness no palpitation no nausea or vomiting no diarrhea no blood in the stools no burning with urination no frequency or urgency and no hematuria. on 01/05/2020 patient was seen and examined on the medical floor, she is alert and oriented 3 in no apparent distress she is still complaining of shortness of breath and occasional chest pain she was evaluated by pulmonary and cardiology echocardiogram was done results are still not available to me there is no fever or chills no headache or dizziness no nausea or vomiting no abdominal pain no diarrhea no blood in the stools no burning with urination no frequency or urgency no hematuria Objective - Vital Signs Vital signs: Vital Signs Temp 97.3 F L 01/05/20 14:37 Pulse 69 01/05/20 14:37 Resp 16 01/05/20 15:00 BP 114/74 01/05/20 14:37 Pulse Ox 95 01/05/20 14:37 Intake & Output 01/04/20 01/05/20 01/05/20 18:59 06:59 18:59 Intake Total 1060 Balance 1060 Intake: Oral 1060 Other: Voiding Method Toilet Toilet # Voids 2 1 1 - Exam In general patient is alert and oriented 3 in no apparent distress HEENT head normocephalic and atraumatic Neck is supple no JVD no goiter no lymphadenopathy no carotid bruit Chest exam reveals a few scattered rhonchi no wheezing Cardiac exam reveals regular heart sounds S1 and S2 no gallops no murmurs Abdomen is soft nontender no organomegaly with normal bowel sounds Extremity exam reveals no edema no cyanosis or clubbing Neurological examination reveals no gross focal deficit - Labs CBC & Chem 7: 01/05/20 07:45 01/05/20 07:45 Labs: Abnormal Lab Results - Last 24 Hours (Table) 01/05/20 01/05/20 Range/Units 07:45 07:45 WBC 14.8 H (3.8-10.6) k/uL MCV 103.7 H (80.0-100.0) fL Neutrophils # 14.0 H (1.3-7.7) k/uL Lymphocytes # 0.3 L (1.0-4.8) k/uL Sodium 135 L (137-145) mmol/L BUN 36 H (7-17) mg/dL Creatinine 0.48 L (0.52-1.04) mg/dL Glucose 175 H (74-99) mg/dL Assessment and Plan Plan: 1. Acute exacerbation of chronic obstructive pulmonary disease patient started on IV Solu-Medrol and inhaled bronchodilators in the emergency room pulmonary consultation requested 2. Episode of chest pain serial EKG and cardiac enzymes ordered cardiology consultation requested 3. Underlying history of chronic back pain maintained on narcotics for pain management 4. Underlying history of tobacco abuse patient counseled in length in regard to smoking cessation 5. Underlying history of depression maintained on Lexapro 6. Underlying history of osteoarthritis 7. Underlying history of hyperlipidemia 8. Epigastric pain lipase is normal will check abdominal ultrasound continue with Protonix At this time patient is admitted to medical floor she was started on IV steroids and inhaled bronchodilators Check sputum culture, check chest x-ray PA and lateral Pulmonary consultation was requested in regards to COPD exacerbation and cardiology consultation was requested in that regard to chest pain Home medications reviewed and reordered For DVT prophylaxis we will use subcu Lovenox For GI prophylaxis continue Protonix Will follow during this admission
[2020-01-05] MEDS: traZODone HCL 50 MG TAB PO SCH (20:11)
[2020-01-05] MEDS: NICOTINE 21MG/24HR PATCH TRANSDERM SCH (20:11)
[2020-01-06] MEDS: HYDROcodone/APAP 10-325MG 1 EACH TAB PO SCH ×3 (05:11→15:14)
[2020-01-06] MEDS: methylPREDNISolone SOD SUCCI 125 MG/2 ML VIAL IV SCH ×2 (05:14→11:28)
[2020-01-06 06:18] LABS: Basophils % (A) 0 %; Eosinophils # (A) 0.1 k/uL (0-0.7); Eosinophils % (A) 1 %; HCT 37.3 % (34.0-46.0); HGB 12.2 gm/dL (11.4-16.0); Lymphocytes # (A) 0.3 k/uL (1.0-4.8); Lymphocytes % (A) 2 %; MCH 34.2 pg (25.0-35.0); MCHC 32.8 g/dL (31.0-37.0); MCV 104.3 fL (80.0-100.0); Macrocytosis Slight; Mean Platelet Volume 7.3; Monocytes # (A) 0.5 k/uL (0-1.0); Monocytes % (A) 4 %; Neutrophils # (A) 12.3 k/uL (1.3-7.7); Neutrophils % (A) 93 %; Platelet Count 309 k/uL (150-450); RBC 3.57 m/uL (3.80-5.40); RDW 13.2 % (11.5-15.5); WBC 13.3 k/uL (3.8-10.6)
[2020-01-06 06:29] LABS: ALT 8 U/L (4-34); AST 13 U/L (14-36); African American GFR (CKD) >90 (>60 ml/min/1.73 sqM); Albumin 3.5 g/dL (3.5-5.0); Alkaline Phosphatase 74 U/L (38-126); Anion Gap 5 mmol/L; Blood Urea Nitrogen 29 mg/dL (7-17); Calcium 9.2 mg/dL (8.4-10.2); Carbon Dioxide 32 mmol/L (22-30); Chloride 98 mmol/L (98-107); Glucose 153 mg/dL (74-99); Non-African American GFR(CKD) >90 (>60 ml/min/1.73 sqM); Potassium 4.1 mmol/L (3.5-5.1); Sodium 135 mmol/L (137-145); Total Bilirubin 0.5 mg/dL (0.2-1.3); Total Protein 6.1 g/dL (6.3-8.2)
[2020-01-06 07:54] VITALS: RESP 16
[2020-01-06] MEDS: GABAPENTIN 400 MG CAP PO SCH ×2 (08:12→15:14)
[2020-01-06] MEDS: DICYCLOMINE 10 MG CAP PO SCH ×2 (08:13→15:15)
[2020-01-06] MEDS: MORPHINE SULFATE ER 60 MG TABLET PO SCH (08:13)
[2020-01-06] MEDS: ATORVASTATIN 10 MG TAB PO SCH (08:13)
[2020-01-06] MEDS: PANTOPRAZOLE 40 MG TABLET PO SCH (08:13)
[2020-01-06] MEDS: ESCITALOPRAM 20 MG TAB PO SCH (08:14)
[2020-01-06] MEDS: DOXYCYCLINE 100 MG CAP PO SCH (08:14)
[2020-01-06] MEDS: ENOXAPARIN 40 MG/0.4 ML SYRINGE SQ SCH (08:20)
[2020-01-06] MEDS: ALBUTEROL NEBULIZED 2.5 MG/3 ML INHALATION SCH ×2 (08:42→11:56)
[2020-01-06] MEDS: SYMBICORT 160-4.5 MCG INHALER INHALATION SCH (08:42)
[2020-01-06] MEDS: IBUPROFEN 800 MG TAB PO PRN (09:11)
--- NOTE | 2020-01-06 10:31 | P.PN ---
Subjective Progress Note Date: 01/06/20 This is a 59-year-old, somewhat emaciated, and unkempt female with history of hyperlipidemia, nicotine dependence, patient's smokes one package of cigarettes per day, history of COPD, chronic pain syndrome, TIA, sleep apnea, and history of opiate dependence. Patient presents to the hospital with symptoms of progressively worsening shortness of breath with associated cough, at times productive. She also states that she was running mild fevers at home. Patient also was experiencing chest pain, every time she coughs. Chest x-ray did not reveal any acute process. Her EKG on presentation here showed a normal sinus rhythm with no acute changes. Blood pressure 110/60 with a heart rate in the 70s, respirations 18, 92% on 3 L of oxygen. White blood cell count 14.1 on admission, hemoglobin 13.5, platelet count 226. This morning white blood cell count is 17.3, hemoglobin 13.2, platelet count 272. Sodium 133, potassium 3.6, BUN 15, creatinine 0.4. Magnesium 1.7 troponin 0.0123 cholesterol 138, triglycerides 82, LDL 50 and HDL 72. At the time of my examination this morning, patient continues to have a cough, he states the chest pain only occurs with coughing. Patient does state that she's lost approximately 20 pounds in weight recently, she does have a history of IBS and has not been eating much according to her. 01/05/2020 Patient was seen and examined this morning, overall she states that she's feeling significantly better than yesterday. Echocardiogram with Doppler study is been performed, results are yet pending. Blood pressure 136/70 with a heart rate in the 80s, 95% on 3 L of oxygen. White blood cell count 14.8, hemoglobin 13.1, platelet count 276. Sodium 135, potassium 3.5, BUN 36, creatinine 0.4. 01/06/2020 Patient was seen and examined this morning, overall feeling significantly better. Blood pressure 124/70 with a heart rate in the 50s to 60s, 95% on room air. White blood cell count 13.3, hemoglobin 12.2, platelet count 309. Sodium 135, potassium 4.1, BUN 29 and creatinine 0.4. Echocardiogram with Doppler study was reviewed, revealed a normal left ventricular systolic function. Objective - Vital Signs Vital signs: Vital Signs Temp 97.3 F L 01/06/20 07:52 Pulse 60 01/06/20 08:55 Resp 16 01/06/20 08:26 BP 124/78 01/06/20 07:52 Pulse Ox 93 L 01/06/20 08:42 Intake & Output 01/05/20 01/06/20 01/06/20 18:59 06:59 18:59 Intake Total 336 Balance 336 Intake: Oral 236 Other 100 Other: Voiding Method Toilet # Voids 1 1 - Exam PHYSICAL EXAMINATION: GENERAL: 59-year-old somewhat of a sedated, unkempt female HEENT: Head is atraumatic, normocephalic. Pupils equal, round. Sclera anicteric. Conjunctiva are clear. Mucous membranes of the mouth are moist. Neck is supple. There is no elevated jugular venous pressure. No carotid bruit is heard. HEART EXAMINATION: Heart S1, S2 normal. No murmur or gallop heard. CHEST EXAMINATION: Lungs reveal improvement in air exchange, less wheezing ABDOMEN: Soft, nontender. Bowel sounds are heard. No organomegaly noted. EXTREMITIES: 2+ peripheral pulses with no evidence of peripheral edema and no calf tenderness noted. NEUROLOGIC patient is awake, alert and oriented 3 . - Labs CBC & Chem 7: 01/06/20 06:05 01/06/20 06:05 Labs: Abnormal Lab Results - Last 24 Hours (Table) 01/06/20 01/06/20 Range/Units 06:05 06:05 WBC 13.3 H (3.8-10.6) k/uL RBC 3.57 L (3.80-5.40) m/uL MCV 104.3 H (80.0-100.0) fL Neutrophils # 12.3 H (1.3-7.7) k/uL Lymphocytes # 0.3 L (1.0-4.8) k/uL Sodium 135 L (137-145) mmol/L Carbon Dioxide 32 H (22-30) mmol/L BUN 29 H (7-17) mg/dL Creatinine 0.47 L (0.52-1.04) mg/dL Glucose 153 H (74-99) mg/dL AST 13 L (14-36) U/L Total Protein 6.1 L (6.3-8.2) g/dL Assessment and Plan Plan: Assessment and plan #1 symptoms of shortness of breath with associated cough, possible COPD exacer bation or tracheobronchitis #2 atypical chest pain, pleuritic in nature, occurs with cough. Troponins negative 3. EKG shows normal sinus rhythm with no acute changes. #3 COPD #4 nicotine dependence #5 chronic pain syndrome #6 sleep apnea #7 prior TIA #8 history of opiate dependence #9 hyperlipidemia Plan Echocardiogram with Doppler study was performed which revealed a normal left ventricular systolic function. From cardiology's perspective, patient may be able to be discharged home today. We will make her a follow-up appointment in the office post discharge. DNP note has been reviewed, I agree with a documented findings and plan of care. Patient was seen and examined.
[2020-01-06] MEDS: METOCLOPRAMIDE 10 MG TAB PO PRN (11:28)
--- NOTE | 2020-01-06 12:02 | P.DS ---
Providers Date of admission: 01/05/20 09:11 Expected date of discharge: 01/06/20 Attending physician: Alon Esteves Consults: 01/03/20 21:10 Consult Physician Routine Consulting Provider: Facundo Mohan Consult Reason/Comments: chest pain Do you want consulting provider notified?: Yes 01/03/20 21:11 Consult Physician Routine Consulting Provider: Michelle Ibarra Consult Reason/Comments: copd Do you want consulting provider notified?: Yes Primary care physician: Alon Esteves [facility] Course: Discharge diagnosis 1. Acute exacerbation of chronic obstructive pulmonary disease with bronchitis. patient started on IV Solu-Medrol and inhaled bronchodilators in the emergency room pulmonary consultation requested. Patient was evaluated by cardiology and pulmonary services. Per pulmonary services patient may be discharged home. Patient to continue doxycycline for 10 days prednisone taper and DuoNeb breathing treatments. Patient also started on albuterol and Symbicort per pulmonary services. Patient to follow-up outpatient with Dr. Patel 2. Episode of chest pain serial EKG and cardiac enzymes ordered cardiology consultation requested. Troponins negative 3 2-D echo performed revealed a normal left ventricular systolic function per cardiology patient may be discharged home. Follow-up outpatient 3. Underlying history of chronic back pain maintained on narcotics for pain management 4. Underlying history of tobacco abuse patient counseled in length in regard to smoking cessation 5. Underlying history of depression maintained on Lexapro 6. Underlying history of osteoarthritis 7. Underlying history of hyperlipidemia 8. Epigastric pain lipase is normal will check abdominal ultrasound continue with Protonix 9. Normal TSH. TSH level 0.174. Patient does not take Synthroid patient will need this rechecked in the outpatient setting. 10. Nicotine dependence. Patient educated at great length about smoking cessation. Nicotine patch ordered upon discharge Hospital course Melia Horan, is a 59-year-old female who presented to [facility] emergency room with a chief complaint of worsening shortness of breath patient was also complaining of episodes of chest pain she describes a pressure sensation in the middle of her chest radiating to the back, patient was also co mplaining of abdominal pain mostly in the epigastric area she was evaluated in the emergency room, her vital exam on presentation revealed a temperature of 98.2 pulse 85 respiration 16 blood pressure 108/72 pulse ox 99% on room air her white blood count was 14.1 hemoglobin 13.5 platelet count 226 sodium 133 potassium 3.6 creatinine 0.41 glucose 152 first troponin was less than 0.012 lipase was 10 first EKG revealed normal sinus rhythm with sinus arrhythmia normal EKG chest x-ray did not reveal any evidence of infiltrate or heart failure preliminary diagnosis was acute exacerbation of chronic obstructive pulmonary disease and chest pain patient was admitted to observation unit she was started on IV steroids and inhaled bronchodilators pulmonary consultation and cardiology consultation were requested serial troponin level were ordered. Patient has a known history of chronic obstructive pulmonary disease she has a prolonged history of smoking she does not have any previous history of coronary artery disease she has known history of hyperlipidemia, chronic back pain and osteoarthritis maintained on narcotics for pain management, history of depression, and history of gastroesophageal reflux disease. On review of systems patient is alert and oriented in no apparent distress she is complaining of shortness of breath with any activity she is complaining of occasional cough at this time she is chest pain-free there is no fever or chills no headache or dizziness no palpitation no nausea or vomiting no diarrhea no blood in the stools no burning with urination no frequency or urgency and no hematuria. on 01/05/2020 patient was seen and examined on the medical floor, she is alert and oriented 3 in no apparent distress she is still complaining of shortness of breath and occasional chest pain she was evaluated by pulmonary and cardiology echocardiogram was done results are still not available to me there is no fever or chills no headache or dizziness no nausea or vomiting no abdominal pain no diarrhea no blood in the stools no burning with urination no frequency or urgency no hematuria On 01/06/2020 patient's alert and oriented 3. Patient has been cleared for discharge from cardiology and pulmonary services. Did discuss case with pulmonary team. Patient will be discharged on doxycycline for 7 days due to bronchitis patient also be discharged on prednisone taper.Patient to follow-up with pulmonary services outpatient. Patient also cleared by cardiology services. Patient to follow-up with PCP and consulting providers for further management. TSH also abnormal at 0.174 patient to follow-up PCP for further monitoring. At this time patient denies chest pain or shortness of breath. Patient denies nausea vomiting or diarrhea. Patient denies any urinary burning or frequency. I performed an examination of the patient and discussed their management with the Nurse Practitioner. I have reviewed the Nurse Practitioner's notes and agree with the documented findings and plan of care Patient Condition at Discharge: Good Plan - Discharge Summary New Discharge Prescriptions: New Budesonide-Formot 160-4.5 Mcg [Symbicort 160-4.5 Mcg Inhaler] 2 puff INHALATION BID 30 Days #1 inhaler Albuterol Inhaler [Ventolin Hfa Inhaler] 1 puff INHALATION RT-QID 30 Days #1 puff Doxycycline [Vibramycin] 100 mg PO BID 10 Days #20 cap Ipratropium-Albuterol Nebulize [Duoneb 0.5 mg-3 mg/3 ml Soln] 3 ml INHALATION QID 30 Days #120 neb Nicotine 21Mg/24Hr Patch [Habitrol] 1 patch TRANSDERM Q24H 30 Days #30 patch predniSONE 10 mg PO DIRECTED 12 Days #30 tab Continue HYDROcodone/APAP 10-325MG [[place] 10-325] 1 tab PO TID Gabapentin [Neurontin] 800 mg PO TID Escitalopram [Lexapro] 20 mg PO DAILY Simvastatin [Zocor] 20 mg PO DAILY Pantoprazole Sodium [Protonix] 40 mg PO AC-BRKFST Morphine Sulfate ER [Ms Contin] 60 mg PO Q12H Ibuprofen [Motrin] 800 mg PO BID PRN PRN Reason: Pain Baclofen 10 mg PO HS PRN PRN Reason: Muscle Spasm Metoclopramide HCl [Reglan] 10 mg PO AC-TID PRN PRN Reason: Nausea Dicyclomine [Bentyl] 10 mg PO TID traZODone HCL 150 mg PO HS Acetaminophen Tab [Tylenol] 650 mg PO Q6H PRN PRN Reason: Pain Lidocaine 2% Gel [Xylocaine Jelly 2%] 1 applic TOPICAL Q8H PRN PRN Reason: HIP/SHOULDERS/BACK PAIN guaiFENesin SYRUP 100MG/5ML [Robitussin] 200 mg PO Q6H PRN PRN Reason: Cough Discharge Medication List Escitalopram [Lexapro] 20 mg PO DAILY 08/18/13 [History] Gabapentin [Neurontin] 800 mg PO TID 08/18/13 [History] HYDROcodone/APAP 10-325MG [[place] 10-325] 1 tab PO TID 08/18/13 [History] Pantoprazole Sodium [Protonix] 40 mg PO AC-BRKFST 12/31/13 [History] Simvastatin [Zocor] 20 mg PO DAILY 12/31/13 [History] Morphine Sulfate ER [Ms Contin] 60 mg PO Q12H 11/04/15 [History] Ibuprofen [Motrin] 800 mg PO BID PRN 09/13/16 [History] Baclofen 10 mg PO HS PRN 05/19/19 [History] Dicyclomine [Bentyl] 10 mg PO TID 05/19/19 [History] Metoclopramide HCl [Reglan] 10 mg PO AC-TID PRN 05/19/19 [History] Acetaminophen Tab [Tylenol] 650 mg PO Q6H PRN 01/03/20 [History] Lidocaine 2% Gel [Xylocaine Jelly 2%] 1 applic TOPICAL Q8H PRN 01/03/20 [History] guaiFENesin SYRUP 100MG/5ML [Robitussin] 200 mg PO Q6H PRN 01/03/20 [History] traZODone HCL 150 mg PO HS 01/03/20 [History] Albuterol Inhaler [Ventolin Hfa Inhaler] 1 puff INHALATION RT-QID 30 Days #1 puff 01/06/20 [Rx] Budesonide-Formot 160-4.5 Mcg [Symbicort 160-4.5 Mcg Inhaler] 2 puff INHALATION BID 30 Days #1 inhaler 01/06/20 [Rx] Doxycycline [Vibramycin] 100 mg PO BID 10 Days #20 cap 01/06/20 [Rx] Ipratropium-Albuterol Nebulize [Duoneb 0.5 mg-3 mg/3 ml Soln] 3 ml INHALATION QID 30 Days #120 neb 01/06/20 [Rx] Nicotine 21Mg/24Hr Patch [Habitrol] 1 patch TRANSDERM Q24H 30 Days #30 patch 01/06/20 [Rx] predniSONE 10 mg PO DIRECTED 12 Days #30 tab 01/06/20 [Rx] Follow up Appointment(s)/Referral(s): Zandra Patel MD [STAFF PHYSICIAN] - 1 Week Alon Esteves MD [Primary Care Provider] - 1-2 days Patient Instructions/Handouts: How to Stop Smoking (DC)
--- NOTE | 2020-01-06 12:23 | P.PN ---
Subjective Progress Note Date: 01/06/20 Principal diagnosis: Acute exacerbation of COPD this is a 59-year-old white female patient of Dr. Esteves with a known history of COPD, chronic and ongoing history of smoking, patient carries at least [id number] smoking history, hypertension, hyperlipidemia, previous history of TIA and CVA, obstructive sleep apnea on CPAP, chronic pain syndrome, opiate dependence, seizure disorder, previous history of MRSA infection, previous history of pulmonary embolism with embolectomy, history of IBS, recent weight loss of 20 pounds in the last few months related to decreased oral intake,who presented emergency department on 01/03/2020 for evaluation of progressive shortness of breath, severe episodes of coughing, cold sweats, anterior sternal chest pain that was exacerbated by episodes of severe coughing, patient denies any fevers, but admits to chills, in addition patient states she was having wheezing, production of yellow phlegm and she was sleeping a lot. chest x-ray showed poor inspiration, some coarsening of the interstitial markings at the lung bases. labs showed white blood cell count of 14.1, hemoglobin of 13.5, coagulation profile was within normal limits, sodium was 133, the rest of the electrolytes were unremarkable, BUN is 15 creatinine 0.41, 3 sets of troponins were less than 0.012, proBNP was 745, lipase was 10, patient was evaluated by cardiology, and the chest pain was felt to be atypical. During our evaluation patient does have congestive cough, wheezing, and she states her chest pain is exacerbated by episodes of coughing.she was started on nebulized bronchodilators, she was given a dose of Toradol for chest discomfort, she continues on oral Motrin for pain, in addition to [place] and MS Contin, she is on Robitussin cough syrup, Symbicort,IV steroids. follow-up chest x-ray today shows no acute cardiopulmonary process. Reevaluated today on 01/05/20, patient remains in the observation unit, continues to have intermittent cough wheezing and shortness of breath, she continues to have some vague chest wall discomfort and tenderness over the anterior chest wall. Patient is on bronchodilators, steroids, and antibiotics, WBC count today is 14.8 hemoglobin is 13.1 left lites are normal renal profile is normal. Jack virus PCR was not detected Patient was reevaluated today on 01/06/20, remains in the observation unit, patient is feeling much better today. Hardly any cough no wheezing no shortness of breath. Hence I will recommend clearance to be discharged home today. Patient to be discharged home on her DuoNeb updrafts, Symbicort, prednisone 30 mg tapered over the next 3 weeks. And doxycycline 100 mg by mouth twice a day Objective - Vital Signs Vital signs: Vital Signs Temp 97.3 F L 01/06/20 07:52 Pulse 60 01/06/20 12:07 Resp 16 01/06/20 08:26 BP 124/78 01/06/20 07:52 Pulse Ox 93 L 01/06/20 08:42 Intake & Output 01/05/20 01/06/20 01/06/20 18:59 06:59 18:59 Intake Total 336 Balance 336 Intake: Oral 236 Other 100 Other: Voiding Method Toilet # Voids 1 1 - Exam Physical Exam: Revealed a 59-year-old female in no distress. Head: Atraumatic, normocephalic. HEENT:[Neck is supple.] [No neck masses.] [No thyromegaly.] [No JVD.] Chest: [Symmetrical chest expansion, diminished breath sounds at the bases no rhonchi and no wheezes. Cardiac Exam: [Normal S1 and S2, no S3 gallop, no murmur.] Abdomen: [Soft, nontender, no megaly, no rebound, no guarding, normal bowel sounds.] Extremities: [No clubbing, no edema, no cyanosis.] Neurological Exam: [No focal neurologic deficit.] Alert oriented 3. Psychiatric: Normal mood, affect and normal mental status examination. Skin: No rashes. Musculoskeletal: Muscle strength and tone are normal no deformities. - Labs CBC & Chem 7: 01/06/20 06:05 01/06/20 06:05 Labs: Abnormal Lab Results - Last 24 Hours (Table) 01/06/20 01/06/20 Range/Units 06:05 06:05 WBC 13.3 H (3.8-10.6) k/uL RBC 3.57 L (3.80-5.40) m/uL MCV 104.3 H (80.0-100.0) fL Neutrophils # 12.3 H (1.3-7.7) k/uL Lymphocytes # 0.3 L (1.0-4.8) k/uL Sodium 135 L (137-145) mmol/L Carbon Dioxide 32 H (22-30) mmol/L BUN 29 H (7-17) mg/dL Creatinine 0.47 L (0.52-1.04) mg/dL Glucose 153 H (74-99) mg/dL AST 13 L (14-36) U/L Total Protein 6.1 L (6.3-8.2) g/dL Assessment and Plan Assessment: #1. Chest wall pain, atypical. #2. Acute exacerbation of COPD. Associated with acute tracheobronchitis, no evidence of pneumonia on chest x-ray. #3.Epigastric discomfort, abdominal ultrasound without acute findings, LFTs were within normal limits, lipase is negative at 10 #4. Tobacco dependence syndrome, [id number] smoking history. #5. history of severe COPD. #6. History of sleep apnea, on CPAP #7. history of weight loss, 20 pounds in the last few months, related to poor oral intake #8. History of IBS, mostly associated with constipation. #9. history of hypertension #10. Hyperlipidemia #11. History of CVA #12. History of seizure disorder Recommendation: Switch patient to oral prednisone. Discharge the patient home today on updraft/DuoNeb, doxycycline, Symbicort, and follow-up on outpatient basis. Counseled regarding smoking cessation. Time with Patient: Less than 30
--- NOTE | 2020-01-06 13:08 | ECHOF ---
Referral Reason:chest pain MEASUREMENTS -------- HEIGHT: 172.7 cm WEIGHT: 54.4 kg BP: RVIDd: 2.5 cm (< 3.3) IVSd: 0.8 cm (0.6 - 1.1) LVIDd: 4.0 cm (3.9 - 5.3) LVPWd: 1.1 cm (0.6 - 1.1) IVSs: 1.2 cm LVIDs: 2.9 cm LVPWs: 1.5 cm LA Diam: 4.7 cm (2.7 - 3.8) LAESV Index (A-L): 35.89 ml/m MV EXCURSION: 19.089 mm (> 18.000) MV EF SLOPE: 130 mm/s (70 - 150) EPSS: 0.4 cm MV E Oliverio: 0.91 m/s MV DecT: 206 ms MV A Oliverio: 0.90 m/s MV E/A Ratio: 1.01 RAP: 5.00 mmHg RVSP: 35.14 mmHg FINDINGS -------- Sinus rhythm. This was a technically adequate study. LV size, wall thickness and systolic function are normal, with an EF greater than 55%. The left jakob tricular size is normal. The diastolic filling pattern is normal for the age of the patient 13.58. The right ventricle is normal in size. LA is moderately dilated 34-39 ml/m2 The right atrial size is normal. The aortic valve is trileaflet, and appears structurally normal. No aortic stenosis or regurgitation. The mitral valve is normal. Mild mitral regurgitation is present. The tricuspid valve appears structurally normal. Mild tricuspid regurgitation present. There is m ild pulmonary hypertension. Trace/mild (physiologic) pulmonic regurgitation. The aortic root size is normal. There is no pericardial effusion. CONCLUSIONS -------- 1. LV size, wall thickness and systolic function are normal, with an EF greater than 55%. 2. The left ventricular size is normal. 3. The diastolic filling pattern is normal for the age of the patient 13.58 4. LA is moderately dilated 34-39 ml/m2 5. The aortic valve is trileaflet, and appears structurally normal. No aortic stenosis or regurgitati on. 6. Mild mitral regurgitation is present. 7. Mild tricuspid regurgitation present. 8. There is mild pulmonary hypertension. 9. Trace/mild (physiologic) pulmonic regurgitation. LOT PORTER: Brenda Carter RDCS
[2020-01-06 13:30] VITALS: BP 115/66; TEMP 97.5
== END 2020-01-06 15:45 | disposition home or self-care (01) | DRG 191 ==
LOC: EC 14:06 → 1SOBS 15:26 → OBSVTOIN 01-05 09:11
PROVIDERS: ADMIT Internal Medicine; ATTEND Internal Medicine
DX: J44.1 Chronic obstructive pulmonary disease with (acute) exacerbation (principal); R64 Cachexia; Z68.1 Body mass index [BMI] 19.9 or less, adult; E44.1 Mild protein-calorie malnutrition; G89.4 Chronic pain syndrome; G40.909 Epilepsy, unspecified, not intractable, without status epilepticus; I10 Essential (primary) hypertension; G47.30 Sleep apnea, unspecified; M19.90 Unspecified osteoarthritis, unspecified site; E78.5 Hyperlipidemia, unspecified; F17.200 Nicotine dependence, unspecified, uncomplicated; F32.9 Major depressive disorder, single episode, unspecified; J20.9 Acute bronchitis, unspecified; K21.9 Gastro-esophageal reflux disease without esophagitis; G43.909 Migraine, unspecified, not intractable, without status migrainosus; Z96.643 Presence of artificial hip joint, bilateral; Z96.653 Presence of artificial knee joint, bilateral; Z20.828 Contact with and (suspected) exposure to other viral communicable diseases; J44.0 Chronic obstructive pulmonary disease with (acute) lower respiratory infection; Z96.612 Presence of left artificial shoulder joint; Z79.891 Long term (current) use of opiate analgesic; Z79.899 Other long term (current) drug therapy; Z88.6 Allergy status to analgesic agent; Z91.041 Radiographic dye allergy status; Z88.0 Allergy status to penicillin; Z88.8 Allergy status to other drugs, medicaments and biological substances; Z91.09 Other allergy status, other than to drugs and biological substances; Z86.73 Personal history of transient ischemic attack (TIA), and cerebral infarction without residual deficits; Z90.49 Acquired absence of other specified parts of digestive tract; Z90.89 Acquired absence of other organs; Z98.890 Other specified postprocedural states; Z86.14 Personal history of Methicillin resistant Staphylococcus aureus infection; Z86.711 Personal history of pulmonary embolism; Z80.0 Family history of malignant neoplasm of digestive organs; Z83.79 Family history of other diseases of the digestive system
CPT/HCPCS: 36415; 71046; 76700; 80053; 80061; 83036; 83690; 83735; 83880; 84443; 84484; 85025; 85610; 85730; 93005; 93306; 94640; 94760; 96374; 96375; 99285

== ENCOUNTER → 2021-01-04 | Outpatient (CLI) | payer MEDICARE, OTHER ==
--- NOTE | 2021-01-04 15:04 | CT ---
EXAMINATION TYPE: CT cervical spine wo con DATE OF EXAM: 01/04/2021 COMPARISON: CT cervical spine 04/13/2019 HISTORY: Spinal stenosis. Right arm numbness. CT DLP: 409 mGycm Automated exposure control for dose reduction was used. TECHNIQUE: CT scan of the cervical spine is obtained without contrast, axial images are obtained, sagittal and c oronal reformatted images are also reviewed. FINDINGS: Cervical spine is visualized in its entirety from C1 through upper thoracic levels, demonstrates near -anatomic alignment without evidence of acute fracture or dislocation. Minimal grade 1 retrolisthesis C3-4, C4-5 and C5-6, there is a spinal curvature in the thoracic spine. There is no significant spin al stenosis. No significant foraminal encroachment. There is multilevel spondylosis. Loss of disc hei ght is greatest at C3-4, C4-5 and C5-6, posterior disc bulge at C5-6 is noted. Extension of the cindi rium during the exam somewhat limits evaluation. Prevertebral soft tissue appears within normal limit s. Some apical paraseptal emphysematous changes are present, there is some centrilobular emphysematous c hanges also noted, there is apical pleural thickening greater on the left. IMPRESSION: There is some mild degenerative disc changes. Thoracic scoliosis. Findings are similar to prior exam
--- NOTE | 2021-01-04 15:11 | CT ---
EXAMINATION TYPE: CT lumbar spine wo con DATE OF EXAM: 01/04/2021 COMPARISON: HISTORY: Spinal stenosis. Left leg numbness. CT DLP: 1037 mGycm Automated exposure control for dose reduction was used. An unenhanced CT of the lumbar spine was performed. Bone and soft tissue window settings are submitt ed as well as coronal and sagittal reconstructions. FINDINGS: Posterior fusion L4-S1 is again noted with metallic hardware causing some artifact. There is been int erval loss of height superior endplate of L4, approximately 20-25% central depression as compared to prior exam. The screw at L5 breaches the anterior cortex on the left, the L4 screw on the right may e xtend into the disc space. There is no significant spinal stenosis. Intervertebral spacing blocks pre sent. Vacuum phenomenon again noted at the intervertebral discs at L4-5 and L5-S1, loss of disc heigh t present. 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 Spinal curvature noted in the thoracic spine. Patient is post cholecystectomy. L1-L2: Normal disc space height. No disc herniation protrusion or central stenosis. No facet joint arthropathy. No evidence for foraminal encroachment. L2-L3: Normal disc space height. No disc herniation protrusion or central stenosis. No facet joint arthropathy. No evidence for foraminal encroachment. L3-L4: Frontal extension of endplate disc complex encroaches upon the inferior aspect of the foramina . L4-L5: Normal disc space height. No disc herniation protrusion or central stenosis. No facet joint arthropathy. No evidence for foraminal encroachment. L5-S1: Circumferential extension endplate extends to cause some foraminal encroachment. IMPRESSION: Some interval depression of superior endplate of L4, screws as described. Degenerative disc disease, foraminal encroachment, noncontrast exam somewhat limited evaluation..
== END | disposition home or self-care (01) ==
LOC: RADCTMAIN 13:05
PROVIDERS: ATTEND Physical Medicine & Rehabilitation
DX: M47.812 Spondylosis without myelopathy or radiculopathy, cervical region (principal); M51.36 Other intervertebral disc degeneration, lumbar region; M41.84 Other forms of scoliosis, thoracic region
CPT/HCPCS: 72125; 72131

== ENCOUNTER → 2021-12-05 | Outpatient (CLI) | payer MEDICARE, OTHER ==
[2021-12-05 18:25] LABS: HCT 39.3 % (37.2-46.3); HGB 12.9 g/dL (12.0-15.0); MCHC 32.8 g/dL (32.0-37.0); MCV 100.5 fL (80.0-97.0); Mean Platelet Volume 9.5 fL (9.5-12.2); NRBC Per 100 WBC 0 /100 WBCS (0.0-0.0); Platelet Count 264 X 10*3/uL (140-440); RBC 3.91 X 10*6/uL (4.10-5.20); RDW 12.6 % (11.5-14.5); WBC 5.99 X 10*3/uL (4.50-10.00)
[2021-12-05 19:42] LABS: ALT 17 U/L (8-44); AST 21 U/L (13-35); African American GFR (CKD) 121.1 (60.0-200.0); Albumin 4.5 g/dL (3.8-4.9); Albumin/Globulin Ratio 2.05 (1.60-3.17); Alkaline Phosphatase 85 U/L (41-126); Blood Urea Nitrogen 15.6 mg/dL (9.0-27.0); Calcium 9.2 mg/dL (8.7-10.3); Carbon Dioxide 26.6 mmol/L (20.0-27.5); Chloride 100 mmol/L (96-109); Globulin 2.2 g/dL (1.6-3.3); Glucose 94 mg/dL (70-110); LDL Cholesterol,Calculated 81.8 mg/dL (0.0-131.0); Non-African American GFR(CKD) 104.5 (60.0-200.0); Potassium 4.4 mmol/L (3.5-5.5); Sodium 137 mmol/L (135-145); Total Protein 6.7 g/dL (6.2-8.2); VLDL Calculation 12.02 mg/dL (5.00-40.00)
== END | disposition home or self-care (01) ==
LOC: LABWHC1 10:43
PROVIDERS: ATTEND Internal Medicine
DX: I10 Essential (primary) hypertension (principal); E78.2 Mixed hyperlipidemia; R53.83 Other fatigue
CPT/HCPCS: 36415; 80053; 80061; 84443; 85027

== ENCOUNTER → 2022-09-14 | Day surgery (SDC) | payer MEDICARE, OTHER ==
[2022-08-03 13:57] VITALS: BMI 20.2
[~2022-09-14] MED LIST: LACTATED RINGERS 1,000 ML IV SCH; LIDOCAINE 1% (10MG/ML) FOR IV START INTRADERMA PRN; PROPOFOL 10 MG/ML 20 ML VIAL IV ONE
[2022-09-14 13:36] VITALS: TEMP 97.8
--- NOTE | 2022-09-14 15:15 | P.PCN ---
Date of Procedure: 09/14/22 Procedure(s) Performed: BRIEF HISTORY: Patient is a 61-year-old pleasant white female scheduled for an elective colonoscopy as a part of evaluation of change in bowel habits and lower abdominal pain for the last several months duration. PROCEDURE PERFORMED: Colonoscop with snare polypectomy and Endo Clip placement PREOPERATIVE DIAGNOSIS: Lower abdominal pain and change in bowel habits. IV sedation per Anesthesia. PROCEDURE: After informed consent was obtained, the patient, was brought into the endoscopy unit. IV sedation was administered by Anesthesia under continuous monitoring. Digital rectal examination was normal. Initially the Olympus CF-160 flexible video colonoscope was then inserted in the rectum, gradually advanced into the cecum without any difficulty. Careful examination was performed as the scope was gradually being withdrawn. Ileocecal valve and the appendiceal orifice were visualized and appeared normal. Prep was excellent. Mucosa of the cecum and a 5 mm and 7 mm sessile polyps in the cecum, where removed by snare polypectomy. One of the polyp had some oozing identified and hence an Endo Clip was placed. Mucosa of the, ascending colon, transverse colon, descending colon, appeared normal. In the sigmoid there was a 1 cm polyp removed by snare polypectomy. Rest of the sigmoid colon, and rectum appeared normal. Retroflexion was performed in the rectum and no lesions were seen. The patient tolerated the procedure well. IMPRESSION 5 mm and 7 mm cecal polyps status post cold snare polypectomy followed by Endo Clip placement 1 cm; sigmoid polyp status post polypectomy RECOMMENDATIONS: Findings of this examination were discussed with the patient as well as her family. She was advised to follow with the biopsy results. If the biopsy results adenoma she can have a repeat colonoscopy in 3 years.
[2022-09-14 15:18] VITALS: RESP 16
[2022-09-14 15:32] VITALS: BP 139/85; PULSE 63
== END ==
LOC: ORWHC2ENDO 12:55
PROVIDERS: ATTEND Internal Medicine Gastroenterology
DX: D12.0 Benign neoplasm of cecum (principal); D12.5 Benign neoplasm of sigmoid colon; I10 Essential (primary) hypertension; E78.5 Hyperlipidemia, unspecified; J44.9 Chronic obstructive pulmonary disease, unspecified; F17.210 Nicotine dependence, cigarettes, uncomplicated; K21.9 Gastro-esophageal reflux disease without esophagitis; G47.33 Obstructive sleep apnea (adult) (pediatric); G89.4 Chronic pain syndrome; G40.909 Epilepsy, unspecified, not intractable, without status epilepticus; Z99.89 Dependence on other enabling machines and devices; Z86.73 Personal history of transient ischemic attack (TIA), and cerebral infarction without residual deficits; Z86.711 Personal history of pulmonary embolism; Z79.899 Other long term (current) drug therapy; Z91.041 Radiographic dye allergy status; Z91.048 Other nonmedicinal substance allergy status; Z88.8 Allergy status to other drugs, medicaments and biological substances
CPT/HCPCS: 88305; 45382; 45385; J2704

== ENCOUNTER → 2023-02-19 | Outpatient (CLI) | payer MEDICARE, OTHER ==
--- NOTE | 2023-02-19 16:22 | US ---
EXAMINATION TYPE: US venous doppler duplex LE LT DATE OF EXAM: 02/19/2023 4:05 PM COMPARISON: NONE CLINICAL INDICATION: Female, 62 years old with history of I80.9 PHLEBITIS AND THROMBOPHLEBITIS OF UNS PECIFIE; Knee pain. No redness or swelling. Not on blood thinners. SIDE PERFORMED: Left TECHNIQUE: The lower extremity deep venous system is examined utilizing real time linear array sonog esme with graded compression, doppler sonography and color-flow sonography. VESSELS IMAGED: Common Femoral Vein Deep Femoral Vein Greater Saphenous Vein * Femoral Vein Popliteal Vein Small Saphenous Vein * Proximal Calf Veins (* superficial vessels) Left Leg: Negative for DVT IMPRESSION: Grayscale, color doppler, spectral doppler imaging performed of the deep veins of the lo wer extremities. There is normal flow, compressibility, vascular waveforms.
== END | disposition home or self-care (01) ==
LOC: RADUSWWP 15:42
PROVIDERS: ATTEND Orthopaedic Surgery
DX: I80.9 Phlebitis and thrombophlebitis of unspecified site (principal); M62.552 Muscle wasting and atrophy, not elsewhere classified, left thigh; Z96.652 Presence of left artificial knee joint

== ENCOUNTER → 2023-07-08 | Outpatient (CLI) | payer MEDICARE, OTHER ==
[2023-07-08 12:01] VITALS: BP 114/77; PULSE 84; RESP 16
--- NOTE | 2023-07-08 12:22 | XR ---
EXAMINATION TYPE: XR skull complete DATE OF EXAM: 07/08/2023 12:02 PM CLINICAL INDICATION:Female, 62 years old with history of M54.81 Occipital neuralgia G44.221 chronic t ension headache; PHH COMPARISON: None. TECHNIQUE: Frontal and bilateral lateral views of the skull. FINDINGS: No evidence to suggest radiopaque foreign body. Soft tissues and osseous structures are within norm al limits. The paranasal sinuses and mastoid air cells are well aerated. No evidence of fracture. IMPRESSION: No evidence for fracture or acute process.
--- NOTE | 2023-07-08 13:57 | P.PAINPG ---
PQRS Measure Charge Sheet Comment: HISTORY OF PRESENT ILLNESS: A 62 yr old female as a referral from Dr Christine presents today w severe and chronic neck pain since 2022 secondary to DDD, spndylosis and facet arthropathy without myelopathy for evaluation. Pt states pain level is provoked at 9 /10 in intensity, constant, localized in the lumbar spine, predominantly axial, sharp in character w occasional shooting pain towards the head. Pain is provoked by any movement. Pain is alleviated by use of cervical collar, medications (MS, [place], Cymbalta, Neurontin, Tyl), Salon Pas patches, repositioning and rest. Cervical disability score at 30. PMH: OA, COPD, CVA, GERD, Hyperlipidemia, HTN, Pneumonia, PE, Seizure Disorder, CECI, HH, UI, MDD/ Anxiety/ Claustrophobia PSH: Adenoidectomy, BL Knee Arthroscopies, BL TKA, BL ADRIA, Lumbar Surgery w Hardware, L Bunionectomy, L Shoulder Replacement, R Shoulder Pin Placement, BL Wrist Cystectomies, L CTR, Cholecystectomy, Orthopedic Surgery, Tonsillectomy, Colonoscopy (2022), R C6-C7 (2022 at [facility]) SH: Daily tobacco use (Since age 12), No ETOH abuse, Hx of Opioid Dependence FH: Fa- Colon CA. Mo- Crohn's Disease. Sis- CA All: See list Meds: See list REVIEW OF ORGAN SYSTEMS: CONSTITUTIONAL: No fevers or chills. No recent weight loss. NEUROLOGICAL: + numbness and tingling along the distal extremities. No seizure disorders or headaches. MUSCULOSKELETAL: + pain PSYCHIATRIC: Denies current depression or suicidal thoughts. Physical Examinations : Constitutional : Cooperative , not in acute distress . Neurologic : Cranial nerve II to XII intact. No focal neurological deficits. Psychiatric : alert & oriented x 3. Matching mood & appropriate affect. Judgment & insight intact. Musculoskeletal : Cervical Spine +BL SARITA TTP Motor strength in the deltoid and biceps: Normal right side. Normal Left side Motor strength biceps and the wrist extensors: Normal right side . Normal left side Motor strength in the triceps muscle: Normal right side. Normal left side Deep tendon reflexes: Normal at the biceps. Normal at Brachioradialis. Normal at triceps Vertebral body tenderness to deep palpation over Cervical facet loading test: positive bilaterally Spurling test: positive bilaterally Neck distraction test: positive bilaterally Yg sign: positive bilaterally Lumbar spine Motor strength lower extremities ,thigh and legs 5/5 Right side , 5/5 Left side Deep tendon reflexes : Normal Knee Jerk. Normal Ankle Jerk Vertebral body tenderness over Ramos Test positive Lumbar facet Loading Test: positive Right / positive Left Range of motion of the lumbar spine Flexion 30 degrees, extension 10 degrees Straight Leg Raise test: Left/ Right positive at degree Katie test: positive right / positive left. Severe tenderness over the Sacroiliac joint on the Right / Left sides Gaenslen test: positive bilaterally Seated flexion test: positive bilaterally. Sacral spine : Severe tenderness over the Sacroiliac joint: right side / left side Range of motion: Flexion of the lumbar spine <60 degrees Range of motion: Extension of the lumbar spine <20 degrees Gaenslen's Test positive Katie test: positive right side / left side Thigh Thrust Test Sacral Thrust Test Imaging: MRI noncontrast of the cervical spine from 04/20/2022 reviewed Assessment/ Plan : Cervical DDD Recommendation of skull x ray G44.221, M 54.81. All questions answered. I have spent greater than 30 minutes on patient care today. Dr Alva was available by phone for the evaluation of this patient. The time was used to review the medical records including relevant urine studies and Prescription history (MAPs), review of the available imaging, evaluation and examination of the patient, coordination of care with the medical staff and if applicable referring physicians, as well as creation of the medical record PQRS Narrative: Smoking Status Current every day smoker Hx Alcohol Use (MH) No Home Medications: Ambulatory Orders Gabapentin [Neurontin] 800 mg PO TID 08/18/13 HYDROcodone/APAP 10-325MG [[place] 10-325] 1 tab PO TID 08/18/13 Pantoprazole Sodium [Protonix] 40 mg PO AC-BRKFST 12/31/13 Morphine Sulfate ER [Ms Contin] 60 mg PO Q12H 11/04/15 Ibuprofen [Motrin] 800 mg PO BID PRN 09/13/16 Baclofen 10 mg PO HS PRN 05/19/19 Dicyclomine [Bentyl] 10 mg PO TID 05/19/19 Metoclopramide HCl [Reglan] 10 mg PO AC-TID PRN 05/19/19 Acetaminophen Tab [Tylenol] 650 mg PO Q6H PRN 01/03/20 Lidocaine 2% Gel [Xylocaine Jelly 2%] 1 applic TOPICAL Q8H PRN 01/03/20 traZODone HCL 100 mg PO HS 01/03/20 Linaclotide [Linzess] 290 mcg PO DAILY PRN 12/07/20 DULoxetine HCL [Cymbalta] 30 mg PO 1300 10/26/21 busPIRone HCl [Buspar] 10 mg PO QAM 10/26/21 hydrOXYzine pamoate [Vistaril] 25 mg PO TID PRN 10/26/21 Controlled Substance Measures - Controlled Substance Measures Is patient prescribed a controlled substance at discharge?: No
== END ==
LOC: PNWHC3 09:54
PROVIDERS: ATTEND Specialist
DX: M54.81 Occipital neuralgia (principal); G44.221 Chronic tension-type headache, intractable; M50.30 Other cervical disc degeneration, unspecified cervical region; F17.200 Nicotine dependence, unspecified, uncomplicated; Z88.8 Allergy status to other drugs, medicaments and biological substances; Z91.041 Radiographic dye allergy status; Z88.0 Allergy status to penicillin; Z91.048 Other nonmedicinal substance allergy status; Z88.5 Allergy status to narcotic agent
CPT/HCPCS: 70260; 99211

== ENCOUNTER → 2023-11-04 | Outpatient (CLI) | payer MEDICARE, OTHER | LOC: PNWHC3 14:00 | PROVIDERS: ATTEND Specialist | DX: M54.81 Occipital neuralgia (principal); G44.86 Cervicogenic headache; F17.200 Nicotine dependence, unspecified, uncomplicated; Z88.8 Allergy status to other drugs, medicaments and biological substances; Z91.041 Radiographic dye allergy status; Z88.0 Allergy status to penicillin; Z88.5 Allergy status to narcotic agent; Z91.048 Other nonmedicinal substance allergy status | CPT/HCPCS: 99211 ==

== ENCOUNTER 2024-01-14 10:40 | Day surgery (SDC) | payer MEDICARE, OTHER ==
[2024-01-14 11:04] VITALS: RESP 16; TEMP 98
[2024-01-14] MEDS: IV FLUID CONTINUATION 1,000 ML IV ONE ×2 (11:12→12:51)
[2024-01-14] MEDS: LACTATED RINGERS 1,000 ML IV SCH (11:13)
[2024-01-14] MEDS ORDERED: MIDAZOLAM 2 MG/2 ML VIAL ONE (12:19)
[2024-01-14] MEDS ORDERED: ROPIVACAINE 5MG/ML 20ML VIAL ONE (12:19)
[2024-01-14] MEDS ORDERED: fentaNYL (PF) 50 MCG/ML 2 ML AMP ONE (12:19)
--- NOTE | 2024-01-14 12:43 | P.PCN ---
Date of Procedure: 01/14/24 Procedure(s) Performed: PREOPERATIVE DIAGNOSIS: 1-Cervical Spondylosis with Facet Arthropathy.without myelopathy. 2-cervical degenerative disc disease POSTOPERATIVE DIAGNOSIS:1-cervical spondylosis with facet arthropathy without myelopathy. 2-cervical degenerative disc disease PROCEDURES: Diagnostic bilateral C2, C3, C4 medial branch blocks, with fluoroscopic guidance (fluoroscopy images available in radiology department ) ( to target the facet joint at bilateral C2-3 , C3-4 ) ANESTHESIA:moderate sedation with Versed 2 mg , and fentanyl 150 micrograms(seations start time 12:19 ,ended at 12:41 ) EBL: Minimal PROCEDURE INDICATION: The patient with neck pain secondary to cervical arthropathy unresponsive to more conservative treatments. PROCEDURE DESCRIPTION / TECHNIQUE: The patient was seen and identified in the preoperative area. Risks, benefits, complications, and alternatives were discussed with the patient, the patient agreed to proceed with the procedure and signed the consent. IV was started. Vital signs remained stable throughout the procedure. Patient was taken to the OR and time out was completed. The patient was placed in the prone position on the procedure table. A pillow was placed under the patients chest to increase the cervical interlaminar space. The cervical area was prepped and draped in the usual sterile fashion. Critical pause was taken. Vital signs were closely monitored during the procedure. Conscious sedation was used during the procedure to decrease patients anxiety. Using cross-table lateral fluoroscopy, the centroid of the trapezoid of right C2 ,C3, C4 was identified, marked, and localized with 1% lidocaine 1 ml at each level for skin and Sub Q infiltrations . Subsequently, a 22 G 3 spinal needle was advanced guided by fluoroscopy to the centroid of the trapezoid of Right C2 ,C3, C4 [place] tip position was confirmed at the centroid of the trapezoids of Right C2, C3 , C4 with anteroposterior fluoroscopy. Subsequently,1.5 ml of preservative-free Ropivacaine 0.5% and half ml was injected after negative aspiration for blood and CSF. [place] was then removed intact the same procedure was repeated at the left C2, C3 , C4 levels. COMPLICATIONS: No acute complications. DISPOSITION / PLANS: The patient was placed in a supine position and transferred to the recovery area in a stable condition for observation and was discharged from the recovery room after meeting discharge criteria. Home discharge instructions given to the patient by the staff. The patient was reexamined prior to discharge. The patient will schedule a follow up in the clinic in 2-4 weeks.
[2024-01-14 13:06] VITALS: BP 127/83; PULSE 74
--- NOTE | 2024-01-14 14:18 | FL ---
EXAMINATION TYPE: FL guided pain mgmt statistic DATE OF EXAM: 01/14/2024 FLUOROSCOPY CERVICAL FACETS BILAT, 17SEC FL TIME, [id number]. 4 images submitted. [facility], , 01/14/2024 2:16 PM
== END 2024-01-14 13:22 | disposition home or self-care (01) ==
LOC: ORPAIN 10:40
PROVIDERS: ATTEND Specialist
DX: M47.812 Spondylosis without myelopathy or radiculopathy, cervical region
CPT/HCPCS: 99152

== ENCOUNTER → 2024-02-10 | Outpatient (CLI) | payer MEDICARE, OTHER ==
[2024-02-10 11:58] VITALS: BP 118/72; PULSE 79; RESP 16; TEMP 98
--- NOTE | 2024-02-10 15:08 | P.PAINPG ---
PQRS Measure Charge Sheet Comment: HISTORY OF PRESENT ILLNESS: A 63 yr old female presents today w severe and chronic neck pain since 2022 secondary to cervicogenic CRUZ, occipital neuralgia for evaluation s/p BL MBB C2- C3/ C3-C4 #1. Pt states she experienced 100% pain relief x 1 day s/p procedure. Pt states pain level is provoked at 8-9 /10 in intensity, constant, localized in the cervical spine, predominantly axial, sharp in character w occasional shooting pain towards the head. Pain is provoked by any movement. Pain is alleviated by physician guided exercises/ stretches (cervical) daily since 2021, use of cervical collar, medications , topical, use of a walker for ambulatory assistance, repositioning and rest. Interventional procedures include BL MBB C2-C4 x1 Medications include MS, [place], Cymbalta, Neurontin, Tyl, Salon Pas, Hx of Opioid Dependence REVIEW OF ORGAN SYSTEMS: CONSTITUTIONAL: No fevers or chills. No recent weight loss. NEUROLOGICAL: + numbness and tingling along the distal extremities. No seizure disorders or headaches. MUSCULOSKELETAL: + pain PSYCHIATRIC: Denies current depression or suicidal thoughts. Physical Examinations : Constitutional : Cooperative , not in acute distress . Neurologic : Cranial nerve II to XII intact. No focal neurological deficits. Psychiatric : alert & oriented x 3. Matching mood & appropriate affect. Judgment & insight intact. Musculoskeletal : Cervical Spine Motor strength in the deltoid and biceps: Normal right side. Normal Left side Motor strength biceps and the wrist extensors: Normal right side . Normal left side Motor strength in the triceps muscle: Normal right side. Normal left side Deep tendon reflexes: Normal at the biceps. Normal at Brachioradialis. Normal at triceps Vertebral body tenderness to deep palpation over Cervical facet loading test: positive BL C2-C3, C3-C4 Spurling test: positive bilaterally Neck distraction test: positive bilaterally Yg sign: positive bilaterally Lumbar spine Motor strength lower extremities ,thigh and legs 5/5 Right side , 5/5 Left side Deep tendon reflexes : Normal Knee Jerk. Normal Ankle Jerk Vertebral body tenderness over Ramos Test positive Lumbar facet Loading Test: positive Right / positive Left Range of motion of the lumbar spine Flexion 30 degrees, extension 10 degrees Straight Leg Raise test: Left/ Right positive at degree Katie test: positive right / positive left. Severe tenderness over the Sacroiliac joint on the Right / Left sides Gaenslen test: positive bilaterally Seated flexion test: positive bilaterally. Sacral spine : Severe tenderness over the Sacroiliac joint: right side / left side Range of motion: Flexion of the lumbar spine <60 degrees Range of motion: Extension of the lumbar spine <20 degrees Gaenslen's Test positive Katie test: positive right side / left side Thigh Thrust Test Sacral Thrust Test Imaging: MRI noncontrast of the cervical spine from 04/20/2022 reviewed Assessment/ Plan : Cervogenic CRUZ, Occipital Neuralgia Recommendation of BL MBB C2-L3/ C3-C4 #2. Risks, benefits of procedure discussed and pt verbalized understanding. Minimal anesthesia including Fentanyl and Versed if clinically indicated. All questions answered. I have spent greater than 30 minutes on patient care today. Dr Alva was available by phone for the evaluation of this patient. The time was used to review the medical records including relevant urine studies and Prescription history (MAPs), review of the available imaging, evaluation and examination of the patient, coordination of care with the medical staff and if applicable referring physicians, as well as creation of the medical record PQRS Narrative: Smoking Status Current every day smoker Hx Alcohol Use (MH) No Home Medications: Ambulatory Orders Gabapentin [Neurontin] 800 mg PO TID 08/18/13 HYDROcodone/APAP 10-325MG [[place] 10-325] 1 tab PO TID 08/18/13 Pantoprazole Sodium [Protonix] 40 mg PO AC-BRKFST 12/31/13 Morphine Sulfate ER [Ms Contin] 60 mg PO Q12H 11/04/15 Baclofen 10 mg PO HS PRN 05/19/19 Dicyclomine [Bentyl] 10 mg PO TID 05/19/19 Metoclopramide HCl [Reglan] 10 mg PO AC-TID PRN 05/19/19 Acetaminophen Tab [Tylenol] 650 mg PO Q6H PRN 01/03/20 Lidocaine 2% Gel [Xylocaine Jelly 2%] 1 applic TOPICAL Q8H PRN 01/03/20 traZODone HCL 50 mg PO HS 01/03/20 DULoxetine HCL [Cymbalta] 30 mg PO 1300 10/26/21 busPIRone HCl [Buspar] 10 mg PO QAM 10/26/21 hydrOXYzine pamoate [Vistaril] 25 mg PO TID PRN 10/26/21 Naloxegol Oxalate [Movantik] 25 mg PO DAILY 01/10/24 Controlled Substance Measures - Controlled Substance Measures Is patient prescribed a controlled substance at discharge?: No
== END ==
LOC: PNWHC3 10:51
PROVIDERS: ATTEND Specialist
DX: G44.86 Cervicogenic headache (principal); M54.81 Occipital neuralgia; F17.200 Nicotine dependence, unspecified, uncomplicated; Z88.8 Allergy status to other drugs, medicaments and biological substances; Z88.0 Allergy status to penicillin; Z91.041 Radiographic dye allergy status; Z88.5 Allergy status to narcotic agent; Z91.048 Other nonmedicinal substance allergy status
CPT/HCPCS: 99211

== ENCOUNTER → 2024-04-16 | Day surgery (SDC) | payer MEDICARE, OTHER ==
[2024-04-14 13:39] VITALS: BMI 45.8
[~2024-04-16] MED LIST changes: -LIDOCAINE 1% (10MG/ML) FOR IV START INTRADERMA PRN; +MIDAZOLAM 2 MG/2 ML VIAL ONE; -PROPOFOL 10 MG/ML 20 ML VIAL IV ONE; +ROPIVACAINE 5MG/ML 20ML VIAL ONE; +fentaNYL (PF) 50 MCG/ML 2 ML AMP ONE
[2024-04-16 11:44] VITALS: TEMP 97.4
[2024-04-16] MEDS: LACTATED RINGERS 1,000 ML IV ONE (11:55)
--- NOTE | 2024-04-16 13:02 | P.PCN ---
Date of Procedure: 04/16/24 Procedure(s) Performed: PREOPERATIVE DIAGNOSIS: 1-Cervical Spondylosis with Facet Arthropathy.without myelopathy. 2-cervical degenerative disc disease POSTOPERATIVE DIAGNOSIS:1-cervical spondylosis with facet arthropathy without myelopathy. 2-cervical degenerative disc disease PROCEDURES: Diagnostic bilateral C2, C3, C4 medial branch blocks, with fluoroscopic guidance (fluoroscopy images available in radiology department ) ( to target the facet joint at bilateral C2-3 , C3-4 ) ANESTHESIA:moderate sedation with Versed 2 mg , and fentanyl 100 micrograms(seations start time 12:25 ,ended at 12:54 ) EBL: Minimal PROCEDURE INDICATION: The patient with neck pain secondary to cervical arthropathy unresponsive to more conservative treatments. PROCEDURE DESCRIPTION / TECHNIQUE: The patient was seen and identified in the preoperative area. Risks, benefits, complications, and alternatives were discussed with the patient, the patient agreed to proceed with the procedure and signed the consent. IV was started. Vital signs remained stable throughout the procedure. Patient was taken to the OR and time out was completed. The patient was placed in the prone position on the procedure table. A pillow was placed under the patients chest to increase the cervical interlaminar space. The cervical area was prepped and draped in the usual sterile fashion. Critical pause was taken. Vital signs were closely monitored during the procedure. Conscious sedation was used during the procedure to decrease patients anxiety. Using cross-table lateral fluoroscopy, the centroid of the trapezoid of right C2 ,C3, C4 was identified, marked, and localized with 1% lidocaine 1 ml at each level for skin and Sub Q infiltrations . Subsequently, a 22 G 3 spinal needle was advanced guided by fluoroscopy to the centroid of the trapezoid of Right C2 ,C3, C4 [place] tip position was confirmed at the centroid of the trapezoids of Right C2, C3 , C4 with anteroposterior fluoroscopy. Subsequently,1.5 ml of preservative-free Ropivacaine 0.5% and half ml was injected after negative aspiration for blood and CSF. [place] was then removed intact the same procedure was repeated at the left C2, C3 , C4 levels. COMPLICATIONS: No acute complications. DISPOSITION / PLANS: The patient was placed in a supine position and transferred to the recovery area in a stable condition for observation and was discharged from the recovery room after meeting discharge criteria. Home discharge instructions given to the patient by the staff. The patient was reexamined prior to discharge. The patient will schedule a follow up in the clinic in 2-4 weeks.
[2024-04-16] MEDS: IV FLUID CONTINUATION 1,000 ML IV ONE (13:03)
[2024-04-16 13:07] VITALS: RESP 16
--- NOTE | 2024-04-16 13:10 | FL ---
EXAMINATION TYPE: FL guided pain mgmt statistic DATE OF EXAM: 04/16/2024 1:00 PM COMPARISON: Pre Operative Images if available both CT/MRI or plain film CLINICAL INDICATION: Female, 63 years old with history of FACT BLOCK HERMINIA; TECHNIQUE: FL guided pain mgmt statistic, multiple fluoroscopic images provided for procedure. Total fluoroscopy time: 20 seconds Total submitted images to PACS: 4 DAP: [id number] mGym2 Gycm2 uGym2 cGycm2 or equivalent. FINDINGS: Fluoroscopic images during injection for pain management demonstrate multilevel degeneration changes throughout the spine. No evidence for fracture. No acute process identified. IMPRESSION: 1. No evidence for intraoperative complication. 2. Please see the operative/procedural note for further details. [facility], , 04/16/2024 1:07 PM
[2024-04-16 13:33] VITALS: BP 105/59; PULSE 80
== END ==
LOC: ORPAIN 10:14
PROVIDERS: ATTEND Specialist
DX: M47.812 Spondylosis without myelopathy or radiculopathy, cervical region (principal); M50.31 Other cervical disc degeneration, high cervical region; Z88.8 Allergy status to other drugs, medicaments and biological substances
CPT/HCPCS: 64490; 64491; J2250; J3010; J2795; 99152; 99153

== ENCOUNTER → 2024-05-27 | Outpatient (CLI) | payer MEDICARE, OTHER ==
[2024-05-27 12:34] VITALS: BP 127/75; PULSE 79; RESP 16; TEMP 97.1
--- NOTE | 2024-05-27 14:24 | P.PAINPG ---
PQRS Measure Charge Sheet Comment: HISTORY OF PRESENT ILLNESS: A 63 yr old female presents today w severe and chronic neck pain since 2022 secondary to cervicogenic CRUZ, occipital neuralgia for evaluation s/p BL MBB C2- L3/ C3-C4 #2. Pt states she experienced 90% pain relief x 4 hrs s/p procedure. Pt states pain level is provoked at 8-9 /10 in intensity, constant, localized in the cervical spine, predominantly axial, sharp in character w occasional shooting pain towards the head. Pain is provoked by any movement. Pain is alleviated by physician guided exercises/ stretches (cervical) daily since 2021, use of cervical collar, medications , topical, use of a walker for ambulatory assistance, repositioning and rest. Interventional procedures include BL MBB C2-C4 x1, BL MBB C2-L3/ C3-C4 x2 Medications include MS, [place], Cymbalta, Neurontin, Tyl, Salon Pas, Hx of Opioid Dependence REVIEW OF ORGAN SYSTEMS: CONSTITUTIONAL: No fevers or chills. No recent weight loss. NEUROLOGICAL: + numbness and tingling along the distal extremities. No seizure disorders or headaches. MUSCULOSKELETAL: + pain PSYCHIATRIC: Denies current depression or suicidal thoughts. Physical Examinations : Constitutional : Cooperative , not in acute distress . Neurologic : Cranial nerve II to XII intact. No focal neurological deficits. Psychiatric : alert & oriented x 3. Matching mood & appropriate affect. Judgment & insight intact. Musculoskeletal : Cervical Spine Motor strength in the deltoid and biceps: Normal right side. Normal Left side Motor strength biceps and the wrist extensors: Normal right side . Normal left side Motor strength in the triceps muscle: Normal right side. Normal left side Deep tendon reflexes: Normal at the biceps. Normal at Brachioradialis. Normal at triceps Vertebral body tenderness to deep palpation over Cervical facet loading test: positive BL C2-C3, C3-C4 Spurling test: positive bilaterally Neck distraction test: positive bilaterally Yg sign: positive bilaterally Lumbar spine Motor strength lower extremities ,thigh and legs 5/5 Right side , 5/5 Left side Deep tendon reflexes : Normal Knee Jerk. Normal Ankle Jerk Vertebral body tenderness over Ramos Test positive Lumbar facet Loading Test: positive Right / positive Left Range of motion of the lumbar spine Flexion 30 degrees, extension 10 degrees Straight Leg Raise test: Left/ Right positive at degree Katie test: positive right / positive left. Severe tenderness over the Sacroiliac joint on the Right / Left sides Gaenslen test: positive bilaterally Seated flexion test: positive bilaterally. Sacral spine : Severe tenderness over the Sacroiliac joint: right side / left side Range of motion: Flexion of the lumbar spine <60 degrees Range of motion: Extension of the lumbar spine <20 degrees Gaenslen's Test positive Katie test: positive right side / left side Thigh Thrust Test Sacral Thrust Test Imaging: MRI noncontrast of the cervical spine from 04/20/2022 reviewed Assessment/ Plan : Cervogenic CRUZ, Occipital Neuralgia Recommendation of BL RFA C2-L3/ C3-C4. Risks, benefits of procedure discussed and pt verbalized understanding. Minimal anesthesia including Fentanyl and Versed if clinically indicated. All questions answered. I have spent greater than 30 minutes on patient care today. Dr Alva was available by phone for the evaluation of this patient. The time was used to review the medical records including relevant urine studies and Prescription history (MAPs), review of the available imaging, evaluation and examination of the patient, coordination of care with the medical staff and if applicable referring physicians, as well as creation of the medical record - Pain Location Bilateral Lower Neck Non-Pharmacological Interventions: Heat, Ice, Inactivity, Position/Reposition Pharmacological Interventions: Block, PRN Medication, Scheduled Medication, Topical Medication PQRS Narrative: Smoking Status Current every day smoker Hx Alcohol Use (MH) No Home Medications: Ambulatory Orders Gabapentin [Neurontin] 800 mg PO TID 08/18/13 HYDROcodone/APAP 10-325MG [[place] 10-325] 1 tab PO TID 08/18/13 Pantoprazole Sodium [Protonix] 40 mg PO AC-BRKFST 12/31/13 Morphine Sulfate ER [Ms Contin] 60 mg PO Q12H 11/04/15 Baclofen 10 mg PO HS PRN 05/19/19 Dicyclomine [Bentyl] 10 mg PO TID 05/19/19 Metoclopramide HCl [Reglan] 10 mg PO AC-TID PRN 05/19/19 Acetaminophen Tab [Tylenol] 650 mg PO Q6H PRN 01/03/20 Lidocaine 2% Gel [Xylocaine Jelly 2%] 1 applic TOPICAL Q8H PRN 01/03/20 traZODone HCL 50 mg PO HS 01/03/20 DULoxetine HCL [Cymbalta] 30 mg PO 1300 10/26/21 busPIRone HCl [Buspar] 10 mg PO QAM 10/26/21 Naloxegol Oxalate [Movantik] 25 mg PO DAILY 01/10/24 Controlled Substance Measures - Controlled Substance Measures Is patient prescribed a controlled substance at discharge?: No
== END ==
LOC: PNWHC3 11:59
PROVIDERS: ATTEND Specialist
DX: G44.86 Cervicogenic headache (principal); M54.81 Occipital neuralgia; F17.210 Nicotine dependence, cigarettes, uncomplicated; Z88.6 Allergy status to analgesic agent; Z91.041 Radiographic dye allergy status; Z88.0 Allergy status to penicillin; Z88.1 Allergy status to other antibiotic agents; Z88.8 Allergy status to other drugs, medicaments and biological substances; Z88.5 Allergy status to narcotic agent; Z91.09 Other allergy status, other than to drugs and biological substances
CPT/HCPCS: 99211

== ENCOUNTER 2024-07-20 10:04 | Day surgery (SDC) | payer MEDICARE, OTHER ==
[~2024-07-20 10:04] MED LIST changes: -LACTATED RINGERS 1,000 ML IV SCH; -MIDAZOLAM 2 MG/2 ML VIAL ONE; -ROPIVACAINE 5MG/ML 20ML VIAL ONE; +fentaNYL (PF) 50 MCG/ML 2 ML AMP IV PRN; -fentaNYL (PF) 50 MCG/ML 2 ML AMP ONE
[2024-07-20 10:43] VITALS: TEMP 96.8
[2024-07-20] MEDS: IV FLUID CONTINUATION 1,000 ML IV ONE (10:43)
[2024-07-20] MEDS: LACTATED RINGERS 1,000 ML IV SCH (10:48)
[2024-07-20] MEDS: ONDANSETRON 4 MG/2 ML VIAL IVP ONE (10:48)
[2024-07-20] MEDS: DEXAMETHASONE SOD PHOSPHATE 4 MG/ML 1 ML VIAL IV ONE (10:49)
[2024-07-20] MEDS: MIDAZOLAM 2 MG/2 ML VIAL IV STA (11:53)
[2024-07-20] MEDS ORDERED: DEXAMETHASONE SOD PHOSPHATE 4 MG/ML 1 ML VIAL ONE (12:25)
[2024-07-20] MEDS ORDERED: ROPIVACAINE 5 MG/ML 30 ML VIAL ONE (12:25)
[2024-07-20] MEDS ORDERED: MIDAZOLAM 2 MG/2 ML VIAL ONE (12:25)
[2024-07-20] MEDS ORDERED: PROPOFOL 10 MG/ML 20 ML VIAL IV ONE (12:25)
[2024-07-20] MEDS: ceFAZolin 2 GM in DEXTROSE 5% IN WATER 50 ML IVPB PRN (12:30)
--- NOTE | 2024-07-20 14:15 | P.ANPRN ---
Procedure Note - Anesthesia - Nerve Block Performed Left Supraclavicular Single Time Out Performed: Yes Date of Procedure: 07/20/24 Procedure Start Time: 11:35 Procedure Stop Time: 11:39 Location of Patient: PreOp Indication: Acute Post-Operative Pain, Requested by Surgeon Sedation Type: Sedate with meaningful contact maintained Preparation: Sterile Prep Position: Supine Needle Types: Pajunk Needle Gauge: 21 Ultrasound used to visualize needle placement: Yes Ultrasound used to observe medication spread: Yes Blood Aspirated: No Pain Paresthesia on Injection Noted: No Resistance on Injection: Normal Image Stored and Saved: Yes Events: Uneventful and Well Tolerated (ropi 0.5% 20 cc plus dexamethasone 4 mg)
[2024-07-20 15:02] VITALS: BP 108/64; PULSE 77; RESP 14
--- NOTE | 2024-07-20 15:05 | P.OP ---
Date of Procedure: 07/20/24 Preoperative Diagnosis: Left wrist arthritis Postoperative Diagnosis: same Procedure(s) Performed: left wrist arthrodesis, conversion from proximal row carpectomy Implants: ethan straight plate Anesthesia: MAC, regional Surgeon: Laureen Cortes Money Counter #1: Aaliyah Kulkarni Estimated Blood Loss (ml): 20 Condition: stable Disposition: PACU Indications for Procedure: The patient has a long history of problems with this wrist. 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 She also has a malunion from a distal radius fracture. She has failed conservative treatment with bracing and cortisone injections. We have decided to proceed with a wrist fusion. She understands that this will trade the pain for stiffness of the wrist. Description of Procedure: The patient, operative extremity, and procedure were identified in the preoperative area. A regional block was performed by the anesthesia team. The patient was brought back to the OR. The arm was prepped and draped in normal sterile fashion. A timeout was perf ormed and the tourniquet was inflated. The previous transverse incision was extended in a z fashion onto the 3rd metacarpal and the distal radius. Dissection was carried down to the extensor retinaculum which was split in a z fashion. The extensor tendons were then scooped aside to reveal the dorsal wrist capsule and radius. The capsule was split longitudinally to access the carpal bones. The wrist was flexed and the articular surface of the distal radius and distal row as well as the capitate and 3rd metacarpal joint was prepped. All cartilage was scraped away and a K wire was utilized to lopez the subchondral bone periodically. Attention was then turned to the plate. The short and standard bends did not fit given the PRC and malunion. Using benders, the plate was carefully molded to the dorsal curvature of the wrist to allow for 30 deg of wrist extension. The plate was then afixed in compression mode with a mix of nonlocking and locking screws. Final fluoroscopic views showed a solid bony mass in the wrist and acceptable hardware placement. The tourniquet was let down. The extensor tendons were released. The extensor retinaculum would not fit over the extensors and the plate. The skin was then closed with nylon sutures. Wound was dressed with antibiotic ointment, adaptic, gauze, cast padding, and a volar wrist splint. Patient was aroused and brought to PACU in stable condition. The skilled assistance was needed through the entirety of the case for retracted tendons and holding the placement of the wrist during fixation of the plate.
== END 2024-07-20 15:33 | disposition home or self-care (01) ==
LOC: OR 10:04
PROVIDERS: ATTEND Orthopaedic Surgery Hand Surgery
DX: M19.032 Primary osteoarthritis, left wrist (principal); G89.18 Other acute postprocedural pain; Z88.0 Allergy status to penicillin
CPT/HCPCS: 64415; 25820; C1713; J2250; J1100; J0690; J2405; J2795; J2704